=== PATIENT | female | born 2000 | race Caucasian/White ===

== ENCOUNTER 2018-09-23 21:27 | Emergency (ER) | payer MEDICAID, SELFPAY ==
[2018-09-23 21:27] VITALS: BP 129/98; PULSE 90; RESP 17; TEMP 36.9; O2SAT 97; BMI 35.7
--- NOTE | 2018-09-23 22:55 | RAD_ITS ---
STUDY: X-RAY - LEFT FOOT CLINICAL: Female, 18 years old. Chronic pain left foot. No known injury TECHNIQUE: 3 view(s) of the foot. COMPARISON: None. FINDINGS: Normal talus, calcaneus, and tarsal bones. Normal visualized subtalar, talonavicular, calcaneocuboid, tarsal and tarsometatarsal articulations. Normal metatarsi. Normal metatarsophalangeal joint of the great toe. Normal tibial and fibular sesamoid bones. Normal interphalangeal joint of the great toe. Normal phalanges of the great toe. Normal second through fifth metatarsophalangeal joints. 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 The soft tissue structures are unremarkable. RAD/Foot min 3 Views IMPRESSION: No demonstrated acute osseous changes. Electronically Signed: Fred Paredes MD at 23:34 EDT Tel , Service support ,
--- NOTE | 2018-09-23 23:04 | ED.VISSUMM ---
- ER Visit Summary Date of Service: 09/23/18 Chief Complaint: Left foot pain History of Present Illness: The patient is a 18 F presenting with left foot pain. Patient states this started on Monday. Family states that it has been intermittent for several years. Patient states when she was in 6th grade she fractured her foot. She has intermittent flares of pain in her left foot. States she twisted it a few months ago and it flared up. She states on Monday she started to have pain again. She does not recall a specific injury. She has been taking Motrin at home as well as using ice and elevation. She denies chest pain or shortness of breath. She denies other complaints. Physical Examination: Vitals are stable. Patient is afebrile. Alert no acute distress. HEENT exam is unremarkable. Neck is supple. Lungs are clear and equal bilaterally. Heart is regular rate and rhythm. Extremities mild diffuse left midfoot tenderness. No erythema or warmth. Normal pulse. Mild left calf tenderness Skin is warm and dry. Remainder of exam is unremarkable. Emergency Department Course and Treatment: Left foot x-ray shows no demonstrated acute osseous changes. Advised to ice and elevate. Advised to use NSAIDs for pain. Venous Doppler was ordered for tomorrow. Advised to follow-up with podiatry. Advised return to ED if worsening complaints. Disposition: Discharge home Impression: Left foot pain This note was generated with [employer] dictation software. It may contain incorrect words, spelling, and punctuation that were not noted in review of the chart prior to signing ED Disposition - Plan for ED Patient: Referrals: Pamela Rajput MD [Primary Care Provider] -
--- NOTE | 2018-09-23 23:48 | ED.DEP ---
ED Disposition - Plan for ED Patient: Instructions: ED Sprain Foot Prescriptions: Naproxen [Naprosyn] 500 mg PO BID PRN #20 tablet Referrals: Pamela Rajput MD [Primary Care Provider] - Sepideh Jarrell DPM [STAFF PHYSICIAN] -
== END 2018-09-24 | disposition home or self-care (01) ==
PROVIDERS: Emergency Provider Emergency Medicine; Family Provider Pediatrics; PCP Pediatrics
DX: M79.672 Pain in left foot (principal); F32.9 Major depressive disorder, single episode, unspecified; Z79.899 Other long term (current) drug therapy
CPT/HCPCS: 73630; 99283

== ENCOUNTER → 2018-09-24 10:54 | Outpatient (CLI) | payer MEDICAID, SELFPAY ==
[2018-09-23 21:27] VITALS: BMI 35.7
--- NOTE | 2018-09-24 11:00 | VDLE_ITS ---
Reason For Study: LLE pain RIGHT LEFT CFV is compressible, spontaneous, phasic, GSV is normal. competent and demonstrates normal CFV is compressible, spontaneous, phasic, augmentation. competent, and demonstrates normal Procedure augmentation. Exam performed in department. FV is compressible, spontaneous, phasic, The study was technically difficult. competent and demonstrates normal A preliminary report was called and/or faxed augmentation. to ED & Dr. Lev Rajput. POP V is compressible, spontaneous, phasic, competent and demonstrates normal augmentation. T/P Trunk is compressible. PTV is compressible. LT PerV is compressible. Interpretation Summary Deep veins of the left lower extremity are patent and compressible segmentally. There is no evidence of left lower extremity deep vein thrombosis. Valvular competence appears intact within the proximal deep venous system on the left . The left greater saphenous vein appears patent and compressible segmentally. Ordering Physician: Ariana Acuna Referring Physician: Pamela Rajput Performed By: Rosey Guerra, RDCS, RVT
== END ==
PROVIDERS: Family Provider Pediatrics; PCP Pediatrics; Referring Provider Emergency Medicine; Visit Provider Emergency Medicine
DX: M79.605 Pain in left leg (principal)
CPT/HCPCS: 93971

== ENCOUNTER → 2019-10-02 | Outpatient (CLI) | payer OTHER, SELFPAY ==
[2019-10-02 15:46] LABS: Hematocrit 40.8 % (37-47); Hemoglobin 13.6 g/dL (12.0-15.0); Mean Corp Hgb Conc 33.3 g/dL (32-36); Mean Corpuscular Hgb 27.1 pg (27.0-32.0); Mean Corpuscular Volume 81.3 fL (81-99); Mean Platelet Vol. 11.4 fl (6.2-12.0); Platelet Count 278 K/mm3 (150-450); RBC Distribution Width CV 13.6 % (11.6-14.6); RBC Distribution Width SD 39.8 fl (35.1-43.9); Red Blood Count 5.02 M/mm3 (4.2-5.4); White Blood Count 8.6 K/mm3 (4.4-11.0)
[2019-10-02 16:13] LABS: Free T3 3.6 pg/mL (2.18-3.98); T4 Free Direct 1.16 ng/dL (0.76-1.46); Thyroid Stim Hormone (TSH) 1.59 uIU/mL (0.358-3.74)
== END | disposition home or self-care (01) ==
PROVIDERS: PCP Pediatrics; Visit Provider Obstetrics & Gynecology
DX: Z12.4 Encounter for screening for malignant neoplasm of cervix (principal); N92.1 Excessive and frequent menstruation with irregular cycle; Z11.3 Encounter for screening for infections with a predominantly sexual mode of transmission
CPT/HCPCS: 36415; 84403; 84439; 84443; 84481; 85027

== ENCOUNTER 2019-11-28 23:33 | Emergency (ER) | payer OTHER, SELFPAY ==
[2019-11-28 23:34] VITALS: BP 130/70; PULSE 81; RESP 16; TEMP 36.5; O2SAT 98; BMI 32.8
--- NOTE | 2019-11-29 00:05 | ED.VIS.GEN ---
History of Present Illness Chief Complaint: Vag Bleeding Informant: Patient Onset: Weeks Context: Gradual Onset Timing: Intermittent Narrative: Patient is a 19-year-old female with history of irregular and heavy periods presenting with 1 month of irregular and heavy vaginal bleeding. Patient states she is been bleeding for the past 4 weeks very badly. Last week she went to [facility] where she had blood work and a pelvic exam. She is to follow-up with her [employer]. Patient's been on control as well as 600 mg ibuprofen regularly. Today she actually had a decrease in her bleeding and then this afternoon passed a couple of clots that she says were large in the size of quarters. She had associated lower abdominal discomfort with this. Patient states now it hurts when she passes clots. She thought the bleeding was finally going to stop but it did not today. She is very frustrated with her situation so she decided come to the emergency room to be evaluated further. Patient states she did have lightheadedness a few days ago and had some associated nausea. She also having fatigue. She does not wear pads because she does not feel that she can move around effectively when she has pads on so she is wearing tampons. States she will go through 8-10 tampons a day. 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 Past Medical History - Allergies and Home Meds Allergies/Adverse Reactions: Allergies cefixime [From Suprax] Allergy (Verified 11/28/19 23:37) Rash Primary Care Physician: Pamela Rajput MD [Primary Care Provider] - Past Medical History: None Surgical History: no surgical history Smoking Status: Unknown if ever smoked Review of Systems General: Denies: Chills, Fever, Sweats Eyes: Denies: Visual changes - bilaterally, Diplopia ENT: Denies: Rhinorrhea, Sore throat Cardiovascular: Denies: Chest pain, Palpitations Respiratory: Denies: Dyspnea, Cough, Dyspnea on exertion Gastrointestinal: Reports: Abdominal pain. Denies: Nausea, Vomiting, Diarrhea, Melena, Hematochezia Genitourinary: Reports: Dysuria, - - vaginal bleeding. Denies: Hematuria, Frequency Musculoskeletal: Denies: Back pain, Extremity Pain Skin: Denies: Rash, Wounds Neurological: Denies: Headache, Weakness, Numbness Physical Exam Vital Signs/Narrative: Vital Signs Temp Pulse Resp BP Pulse Ox 11/28/19 23:34 97.7 F L 81 16 130/70 H 98 Inital Vital Signs reviewed: Yes General: Well nourished, Well developed, Obese, No Acute Distress Head: Normocephalic, Atraumatic Eyes: Perrl, EOMI ENT: Moist mucous membranes, No rhinorrhea Neck: Supple, Nontender Cardiovascular: Regular rate, Regular rhythm, No murmurs Respiratory: No distress, CTA bilaterally, Chest nontender Abdomen: Soft, Nontender, Nondistended, Normal bowel sounds. Negative for: Tender, Guarding, Rebound tenderness : - - defereed per patient preference Back: Nontender, Normal Inspection. Negative for: CVA tenderness Extremities: Nontender, No edema Skin: Normal color, No rash Neurological: Alert, Oriented x3, Cranial nerves II-XII grossly intact, Normal Strength, Normal Sensation Psychological: Normal affect, Normal Mood Diagnostic/Tx/Re-eval Laboratory Data 11/29/19 11/29/19 11/29/19 00:10 00:10 00:44 WBC 10.7 RBC 4.47 Hgb 12.3 Hct 37.0 MCV 82.8 MCH 27.5 MCHC 33.2 RDW Std Deviation 39.8 RDW Coeff of [place] 13.2 Plt Count 284 MPV 11.0 Immature Gran % (Auto) 0.500 Neut % (Auto) 54.5 Lymph % (Auto) 35.4 [place] % (Auto) 6.3 Eos % (Auto) 2.6 Baso % (Auto) 0.7 Absolute Neuts (auto) 5.9 Absolute Lymphs (auto) 3.79 Nucleated RBC % 0 Sodium Potassium Chloride Carbon Dioxide Anion Gap BUN Creatinine Estim Creat Clear Calc Est GFR (MDRD) Af Amer Est GFR (MDRD) Non-Af BUN/Creatinine Ratio Glucose Calcium Urine Color Yellow Urine Clarity Clear Urine pH 6.0 Ur Specific [place] 1.020 Urine Protein 30 H Urine Glucose (UA) Normal Urine Ketones Negative Urine Occult Blood 250 H Urine Nitrite Negative Urine Bilirubin Negative Urine Urobilinogen Normal Ur Leukocyte Esterase 25 H Urine RBC 0-5 SEEN Urine WBC 0-5 SEEN Ur Squamous Epith Cells 0-5 SEEN Urine Bacteria 0 SEEN Urine Mucus 0 SEEN Urine Test Negative 11/29/19 00:44 WBC RBC Hgb Hct MCV MCH MCHC RDW Std Deviation RDW Coeff of [place] Plt Count MPV Immature Gran % (Auto) Neut % (Auto) Lymph % (Auto) [place] % (Auto) Eos % (Auto) Baso % (Auto) Absolute Neuts (auto) Absolute Lymphs (auto) Nucleated RBC % Sodium 141 Potassium 3.6 Chloride 109 H Carbon Dioxide 28.0 Anion Gap 4 L BUN 12 Creatinine 0.65 Estim Creat Clear Calc 113.25 Est GFR (MDRD) Af Amer 148 Est GFR (MDRD) Non-Af 122 BUN/Creatinine Ratio 18.5 Glucose 102 Calcium 8.7 Urine Color Urine Clarity Urine pH Ur Specific [place] Urine Protein Urine Glucose (UA) Urine Ketones Urine Occult Blood Urine Nitrite Urine Bilirubin Urine Urobilinogen Ur Leukocyte Esterase Urine RBC Urine WBC Ur Squamous Epith Cells Urine Bacteria Urine Mucus Urine Test - Medical Decision Making Patient is evaluated for continued episodes of heavy vaginal bleeding and pelvic discomfort. She appears nontoxic and in no acute distress. She not having any significant symptoms at this time but she is distressed because the symptoms are affecting her work. She has an ultrasound scheduled for Monday, 3 days from now. Patient well-appearing with normal vital signs. Her H&H is normal. I am not concerned for an acute anemia. She not lightheaded or having any other signs of acute blood loss anemia. Patient declined pelvic exam states she does have one a week ago at [place] emergency room. Her abdomen is soft and nontender. I do not think she requires an emergent ultrasound this time. Her presentation is not consistent with acute ovarian torsion and her urine is negative so I do not suspect an ectopic . I discussed the case with pens and pencils dipper has been seeing her, Ananya, who is agreeable this plan. She does not have any further recommendations at this time. ED Disposition - Plan for ED Patient: Disposition: Home or Assisted Living Diagnosis: Dysfunctional uterine bleeding Instructions: ED Bleed Irregular Vaginal Referrals: Pamela Rajput MD [Primary Care Provider] - Additional Instructions: Your hemoglobin or red blood cells are stable. At this time I do not think you require an emergent ultrasound or blood transfusion. Please follow-up with your scheduled outpatient ultrasound on Monday. Please call your [employer]IL[employer] if you have further symptoms. Return the emergency room if you have worsening lightheadedness or bleeding.
[2019-11-29 00:15] LABS: Bacteria 0 SEEN /hpf (None Seen); Color, Urine Yellow (Yellow); Glucose, Dipstick Normal (Normal); Ketone-Dipstick Negative (Negative); Leukocyte Esterase-Dipstick 25 /ul (Negative); Mucous, Urine 0 SEEN /hpf (<or=2+); Nitrite-Dipstick Negative (Negative); Occult Blood-Urine 250 /ul (Negative); Protein-Dipstick 30 mg/dl (Negative); Urine Bilirubin Dipstick Negative (Negative); Urine Clarity Clear (Clear); Urine Urobilinogen Normal (Normal)
[2019-11-29 00:57] LABS: Internal QC Validated? YES +Cl - CLEAR BKGD; Pregnancy, Urine Negative Negative
[2019-11-29 00:58] LABS: Absolute Lymphocyte Count 3.79 X10^3/uL (0.83-4.51); Absolute Neutrophil Count 5.9 X10^3/uL (2.0-7.7); Basophil# 0.07 X10^3/uL; Basophil% 0.7 % (0-1); Eosinophil# 0.28 X10^3/uL; Eosinophils% 2.6 % (0-5); Hemoglobin 12.3 g/dL (12.0-15.0); Lymphocyte # 3.79 X10^3/ul (4.0); Lymphocyte % 35.4 % (19-41); Mean Corp Hgb Conc 33.2 g/dL (32-36); Mean Corpuscular Hgb 27.5 pg (27.0-32.0); Mean Corpuscular Volume 82.8 fL (81-99); Monocyte# 0.68 X10^3/uL; Monocyte% 6.3 % (0-10); NRBC Flagged by Analyzer 0 % (0-5); Neutrophil # 5.85 X10^3/uL (2.7-7.7); Neutrophil % 54.5 % (47-70); Platelet Count 284 K/mm3 (150-450); RBC Distribution Width CV 13.2 % (11.6-14.6); RBC Distribution Width SD 39.8 fl (35.1-43.9); Red Blood Count 4.47 M/mm3 (4.2-5.4); White Blood Count 10.7 K/mm3 (4.4-11.0)
[2019-11-29 01:15] LABS: Anion Gap 4 (5-15); BUN 12 mg/dL (7-18); BUN/Creat Ratio 18.5 RATIO (10-20); Calcium,Total 8.7 mg/dL (8.5-10.1); Chloride 109 mmol/L (98-107); Creatinine, Serum 0.65 mg/dL (0.55-1.02); EST Glomerular Filtration Rate 122 mL/min (>60); Est Glom Filt Rate - Afr Amer 148 mL/min (>60); Estimated Creatinine Clearance 113.25 ml/min; Glucose 102 mg/dL (74-106); Potassium 3.6 mmol/L (3.5-5.1); Sodium Level 141 mmol/L (136-145)
[2019-11-29 01:25] LABS: Red Blood Cells-Urine 0-5 SEEN /hpf (0-5); Squamous Epithelial Cells - UA 0-5 SEEN /hpf (5-10); White Blood Cells 0-5 SEEN /hpf (0-5)
[2019-11-29 02:44] VITALS: BP 130/78; PULSE 78; RESP 18; O2SAT 96
== END 2019-11-29 02:44 | disposition home or self-care (01) ==
PROVIDERS: Emergency Provider Emergency Medicine; PCP Pediatrics
DX: N93.8 Other specified abnormal uterine and vaginal bleeding (principal); R10.9 Unspecified abdominal pain; E66.9 Obesity, unspecified; Z79.3 Long term (current) use of hormonal contraceptives; Z79.899 Other long term (current) drug therapy
CPT/HCPCS: 36415; 80048; 81001; 81025; 85025; 99282

== ENCOUNTER → 2020-01-28 16:25 | Outpatient (CLI) | payer OTHER, SELFPAY ==
[2020-01-28 17:41] LABS: Absolute Lymphocyte Count 3.32 X10^3/uL (0.83-4.51); Basophil# 0.06 X10^3/uL; Basophil% 0.7 % (0-1); Eosinophil# 0.23 X10^3/uL; Eosinophils% 2.8 % (0-5); Hematocrit 40.5 % (37-47); Hemoglobin 13.3 g/dL (12.0-15.0); Lymphocyte # 3.32 X10^3/ul (4.0); Lymphocyte % 40.6 % (19-41); Mean Corp Hgb Conc 32.8 g/dL (32-36); Mean Corpuscular Hgb 26.6 pg (27.0-32.0); Mean Platelet Vol. 11.9 fl (6.2-12.0); Monocyte# 0.59 X10^3/uL; Monocyte% 7.2 % (0-10); NRBC Flagged by Analyzer 0 % (0-5); Neutrophil # 3.96 X10^3/uL (2.7-7.7); Neutrophil % 48.5 % (47-70); Platelet Count 301 K/mm3 (150-450); RBC Distribution Width CV 12.8 % (11.6-14.6); RBC Distribution Width SD 38.1 fl (35.1-43.9); White Blood Count 8.2 K/mm3 (4.4-11.0)
[2020-01-28 17:59] LABS: Erythrocyte Sedimentation Rate 8 mm/hr (0-20)
[2020-01-28 18:11] LABS: Vitamin D,25 Hydroxy 24.9 ng/mL
[2020-01-28 19:21] LABS: ALB/GLOB Ratio 0.8 RATIO (0.9-2.4); AST(SGOT) 10 U/L (15-37); Alanine Aminotransfer ALT/SGPT 19 U/L (13-56); Albumin, Serum 3.2 g/dL (3.2-5.0); Alkaline Phosphatase 46 U/L (45-117); Anion Gap 8 (5-15); BUN 14 mg/dL (7-18); BUN/Creat Ratio 22.2 RATIO (10-20); Calcium,Total 8.6 mg/dL (8.5-10.1); Chloride 106 mmol/L (98-107); Creatinine, Serum 0.63 mg/dL (0.55-1.02); EST Glomerular Filtration Rate 126 mL/min (>60); Est Glom Filt Rate - Afr Amer 152 mL/min (>60); Estradiol 19.7 pg/mL; Free T3 2.7 pg/mL (2.18-3.98); Globulin 4.1 g/dL (2.2-4.2); Glucose 94 mg/dL (74-106); Luteinizing Hormone 0.3 mIU/mL; Potassium 3.8 mmol/L (3.5-5.1); Protein, Total 7.3 g/dL (6.4-8.2); Sodium Level 138 mmol/L (136-145); Thyroid Stim Hormone (TSH) 1.53 uIU/mL (0.358-3.74)
== END ==
PROVIDERS: PCP Family Medicine; Referring Provider Family Medicine; Visit Provider Family Medicine
DX: R10.9 Unspecified abdominal pain (principal); E04.1 Nontoxic single thyroid nodule; N94.6 Dysmenorrhea, unspecified; N92.6 Irregular menstruation, unspecified; F32.9 Major depressive disorder, single episode, unspecified
CPT/HCPCS: 36415; 80053; 82306; 82627; 82670; 83001; 83002; 84403; 84439; 84443; 84481; 85025; 85652; 86677; 87086; 87088; 82626

== ENCOUNTER → 2020-03-23 14:02 | Outpatient (CLI) | payer OTHER, SELFPAY ==
--- NOTE | 2020-03-23 14:05 | US_ITS ---
STUDY: ULTRASOUND OF THE FEMALE PELVIS - COMPLETE REASON FOR EXAM: Female, 19 years old. pain LMP: 03/13/2020 TECHNIQUE: Transabdominal TECHNICAL QUALITY: Adequate. COMPARISON: 12/10/2012 FINDINGS: The uterus is anteverted and is in a midline position. The uterus measures 7.5 x 5.2 x 4.2 cm. Normal uterine cervix. The endometrium measures 5 mm in thickness, and is hyperechoic. There is no demonstrated endometrial mass. There is no demonstrated myometrial mass. I.U.D. - The patient does not have an I.U.D. The right ovary is visualized. The right ovary measures 2.3 x 1.4 x 1.9 cm. There is no right ovarian cyst or ovarian mass. There is no visualized right adnexal mass or complex lesion. There is normal arterial and normal venous vascularity. The left ovary is visualized. The left ovary measures 2.1 x 2.8 x 1.6 cm. There is no left ovarian cyst or ovarian mass. There is no visualized left adnexal mass or complex lesion. There is normal arterial and normal venous vascularity. There is no fluid in the cul-de-sac. The pre void volume of the bladder was 64 ml. The post void volume of the bladder was ml. Polycystic ovary disease: No. US/Pelvic (Non ) IMPRESSION: Normal female pelvis. Electronically Signed: Grayson Joseph MD at 16:00 EST Tel , Service support ,
== END ==
PROVIDERS: PCP Family Medicine; Referring Provider Family Medicine; Visit Provider Family Medicine
DX: R10.9 Unspecified abdominal pain (principal)
CPT/HCPCS: 76856

== ENCOUNTER → 2020-04-22 | Outpatient (CLI) | payer OTHER, SELFPAY | END | disposition home or self-care (01) | LOC: LABSPEC 15:06 | PROVIDERS: PCP Family Medicine; Referring Provider Family Medicine; Visit Provider Family Medicine | DX: Z20.822 Contact with and (suspected) exposure to COVID-19 (principal) | CPT/HCPCS: 87635; U0005; U0003 ==

== ENCOUNTER → 2020-08-25 14:22 | Outpatient (CLI) | payer OTHER, SELFPAY ==
[2020-08-13 13:30] VITALS: BMI 40.8
--- NOTE | 2020-08-25 14:24 | US_ITS ---
STUDY: ULTRASOUND OF THE FEMALE PELVIS - COMPLETE REASON FOR EXAM: Female, 20 years old. IUD replacement. Pelvic pain. TECHNIQUE: Transabdominal and Transvaginal TECHNICAL QUALITY: Adequate. COMPARISON: Comparison is made with prior study dated 03/23/2020. FINDINGS: The uterus is anteverted and is in a midline position. The uterus measures 7 cm x 5.6 cm x 4.5 cm. Normal uterine cervix. The endometrium measures 10 mm in thickness, and is hyperechoic. There is no demonstrated endometrial mass. There is no demonstrated myometrial mass. I.U.D. - The patient does have an I.U.D. The right ovary is visualized. The right ovary measures 1.7 cm x 1.5 cm by 1.4 cm. There is no right ovarian cyst or ovarian mass. There is no visualized right adnexal mass or complex lesion. There is normal arterial and normal venous vascularity. The left ovary is visualized. The left ovary measures 1.9 cm x 1.7 cm x 1.2 cm. There is no left ovarian cyst or ovarian mass. There is no visualized left adnexal mass or complex lesion. There is normal arterial and normal venous vascularity. There is no fluid in the cul-de-sac. The pre void volume of the bladder was 389 ml. Polycystic ovary disease: No. US/Pelvic (Non ) IMPRESSION: IUD is seen within the endometrium. Electronically Signed: Nacho Erickson MD at 13:19 EDT , Service support ,
--- NOTE | 2020-08-25 14:24 | US_ITS ---
STUDY: ULTRASOUND OF THE FEMALE PELVIS - COMPLETE REASON FOR EXAM: Female, 20 years old. IUD replacement. Pelvic pain. TECHNIQUE: Transabdominal and Transvaginal TECHNICAL QUALITY: Adequate. COMPARISON: Comparison is made with prior study dated 03/23/2020. FINDINGS: The uterus is anteverted and is in a midline position. The uterus measures 7 cm x 5.6 cm x 4.5 cm. Normal uterine cervix. The endometrium measures 10 mm in thickness, and is hyperechoic. There is no demonstrated endometrial mass. There is no demonstrated myometrial mass. I.U.D. - The patient does have an I.U.D. The right ovary is visualized. The right ovary measures 1.7 cm x 1.5 cm by 1.4 cm. There is no right ovarian cyst or ovarian mass. There is no visualized right adnexal mass or complex lesion. There is normal arterial and normal venous vascularity. The left ovary is visualized. The left ovary measures 1.9 cm x 1.7 cm x 1.2 cm. There is no left ovarian cyst or ovarian mass. There is no visualized left adnexal mass or complex lesion. There is normal arterial and normal venous vascularity. There is no fluid in the cul-de-sac. The pre void volume of the bladder was 389 ml. Polycystic ovary disease: No. US/Transvaginal Non- IMPRESSION: IUD is seen within the endometrium. Electronically Signed: Nacho Erickson MD at 13:19 EDT , Service support ,
== END ==
PROVIDERS: PCP Family Medicine; Referring Provider Obstetrics & Gynecology; Visit Provider Obstetrics & Gynecology
DX: R10.2 Pelvic and perineal pain (principal)
CPT/HCPCS: 76830; 76856; 93976

== ENCOUNTER → 2020-10-07 | Outpatient (CLI) | payer OTHER, SELFPAY ==
[2020-08-13 13:30] VITALS: BMI 40.8
== END | disposition home or self-care (01) ==
LOC: LABSPEC 13:09
PROVIDERS: PCP Family Medicine; Visit Provider Family Medicine
DX: J01.90 Acute sinusitis, unspecified (principal)
CPT/HCPCS: 87635; U0005; U0003

== ENCOUNTER → 2020-10-14 | Outpatient (CLI) | payer OTHER, SELFPAY ==
[2020-10-14 14:44] VITALS: BMI 40.8
== END | disposition home or self-care (01) ==
PROVIDERS: PCP Family Medicine; Referring Provider Nurse Practitioner Women's Health; Visit Provider Nurse Practitioner Women's Health
DX: N76.0 Acute vaginitis (principal)
CPT/HCPCS: 87070; 87205

== ENCOUNTER → 2021-04-01 10:15 | Outpatient (CLI) | payer BC, SELFPAY ==
[2021-04-01 11:40] LABS: HIV - WCH Non-Reactive (Nonreactive); Hepatitis C Antibody Non-Reactive (Nonreactive); Syphilis Antibodies Non-reactive
[2021-04-01 19:17] LABS: Thyroid Stim Hormone (TSH) 0.82 uIU/mL (0.358-3.74)
[2021-04-02 14:13] LABS: HSV 2 IgG 1.26 index (0.00-0.90)
[2021-04-03 02:07] LABS: Chlamydia By Nucleic Acid AMP Negative (Negative)
[2021-04-03 07:45] LABS: Gonococcus By Nucleic Acid AMP Negative (Negative)
[2021-04-06 13:34] LABS: HPV Reflexed? NOT INDICATED
== END ==
PROVIDERS: PCP Family Medicine; Referring Provider Nurse Practitioner Women's Health; Visit Provider Nurse Practitioner Women's Health
DX: Z12.4 Encounter for screening for malignant neoplasm of cervix (principal); Z20.2 Contact with and (suspected) exposure to infections with a predominantly sexual mode of transmission; Z13.29 Encounter for screening for other suspected endocrine disorder
CPT/HCPCS: 36415; 84443; 86695; 86696; 86703; 86780; 86803; 87491; 87591; 88175; G0145

== ENCOUNTER → 2021-04-13 | Outpatient (CLI) | payer BC, SELFPAY | END | disposition home or self-care (01) | LOC: LABSPEC 14:51 | PROVIDERS: PCP Family Medicine; Visit Provider Nurse Practitioner Family | DX: U07.1 COVID-19 (principal) | CPT/HCPCS: 87633; 87635; U0005; U0003 ==

== ENCOUNTER 2021-05-07 16:00 | Outpatient (CLI) | payer BC, SELFPAY ==
--- NOTE | 2021-05-07 16:05 | RAD_ITS ---
INDICATION: POST COVID SYNDROME EXAMINATION/TECHNIQUE: X-RAY - XR Chest 2 Views COMPARISON: None. FINDINGS: LINES/DEVICES: None. LUNGS: Symmetric normal lung volumes. No airspace opacity or abnormal interstitial pattern. No nodule or mass. No pleural effusion or pneumothorax. MEDIASTINUM AND CARDIOVASCULAR STRUCTURES: Normal size and contour of the cardiomediastinal silhouette. No evidence of pulmonary vascular congestion. BONES AND SOFT TISSUES: No abnormality within limits of the exam. RAD/Chest PA and Lateral IMPRESSION: 1. No radiographic evidence of acute cardiopulmonary disease. Electronically Signed: Silver William DO at 21:41 EST Tel , Service support ,
== END 2021-05-07 23:59 | disposition short-term general hospital (02) ==
LOC: MTRAD 16:04
PROVIDERS: PCP Family Medicine; Referring Provider Registered Nurse; Visit Provider Registered Nurse
DX: U09.9 Post COVID-19 condition, unspecified (principal)
CPT/HCPCS: 71046

== ENCOUNTER 2021-06-14 15:35 | Outpatient (CLI) | payer BC, SELFPAY ==
--- NOTE | 2021-06-14 15:36 | RAD_ITS ---
History: NECK PAIN Cervical spine 7 views including flexion and extension lateral views: Findings: No fracture or subluxation. Congenital fusion of C2 and C3. Normal range of motion. Disc spaces and facet joints appear normal. Precervical soft tissues are normal. IMPRESSION: Intact cervical spine. at 1603 Reported and signed by: Ata Shaikh MD Electronically Signed: Ata Shaikh MD at 16:02 EST , RAD/Cerv Spine Obl/Flex/Ext Comp
== END 2021-06-14 23:59 | disposition home or self-care (01) ==
LOC: MTLAB 15:35
PROVIDERS: PCP Family Medicine; Referring Provider Nurse Practitioner Family; Visit Provider Nurse Practitioner Family
DX: M54.2 Cervicalgia (principal)
CPT/HCPCS: 72052

== ENCOUNTER 2021-08-02 14:02 | Outpatient (CLI) | payer BC, SELFPAY ==
--- NOTE | 2021-08-02 14:09 | RAD_ITS ---
EXAM: XR CHEST, 2 VIEWS : 1998 CLINICAL INDICATION: COUGH TECHNIQUE: Frontal and lateral views of the chest. This report was created using [employer] report generation technology. COMPARISON: None. FINDINGS: LUNGS AND PLEURAL SPACES: Unremarkable. No consolidation or edema. No pneumothorax. No effusion. HEART: Unremarkable. Cardiac silhouette not enlarged. MEDIASTINUM: Central airways and mediastinal contour are unremarkable. BONES/JOINTS: Unremarkable. SOFT TISSUES: Unremarkable. RAD/Chest PA and Lateral IMPRESSION: No radiographic evidence of acute cardiopulmonary disease. at 1647 Reported and signed by: Kendall Seth MD Electronically Signed: Kendall Seth MD at 16:46 EDT ,
--- NOTE | 2021-08-02 14:09 | RAD_ITS ---
EXAM: XR ABDOMEN, 2 VIEWS : 1998 CLINICAL INDICATION: PAIN TECHNIQUE: Frontal view of the abdomen/pelvis with upright view of the abdomen. This report was created using [employer] report generation technology. COMPARISON: None. FINDINGS: LOWER THORAX: No acute pathology. INTRAPERITONEAL SPACE: No free air. GASTROINTESTINAL TRACT: Unremarkable. Non-obstructive. No bowel or stomach distention. ORGANS: Unremarkable as visualized. No organomegaly. No abnormal calcifications. BONES/JOINTS: No acute pathology. SOFT TISSUES: No acute pathology. RAD/Abd Inc Decub and/or Erect IMPRESSION: Unremarkable abdominal series. at 1631 Reported and signed by: Kendall Seth MD Electronically Signed: Kendall Seth MD at 16:30 EDT ,
[2021-08-02 14:23] LABS: Mucous, Urine 0 SEEN /hpf (<or=2+)
[2021-08-02 17:34] LABS: Color, Urine Amber (Yellow); Glucose, Dipstick Normal (Normal); Ketone-Dipstick Negative (Negative); Leukocyte Esterase-Dipstick 100 /ul (Negative); Nitrite-Dipstick Negative (Negative); Occult Blood-Urine 150 /ul (Negative); Protein-Dipstick 15 mg/dl (Negative); Urine Clarity Sl. Cloudy (Clear); Urine Urobilinogen 4 mg/dl (Normal)
[2021-08-02 17:38] LABS: Urine Bilirubin Dipstick 3 mg/dL (Negative)
[2021-08-02 17:39] LABS: Absolute Lymphocyte Count 3.79 X10^3/uL (0.83-4.51); Absolute Neutrophil Count 1.9 X10^3/uL (2.0-7.7); Basophil# 0.07 X10^3/uL; Basophil% 1.1 % (0-1); Eosinophil# 0.02 X10^3/uL; Eosinophils% 0.3 % (0-5); Hematocrit 37.1 % (37-47); Hemoglobin 12.6 g/dL (12.0-15.0); Lymphocyte # 3.79 X10^3/ul (0.83-4.51); Lymphocyte % 60.8 % (19-41); Mean Corpuscular Hgb 27.9 pg (27.0-32.0); Mean Corpuscular Volume 82.3 fL (81-99); Mean Platelet Vol. 12.4 fl (6.2-12.0); Monocyte# 0.35 X10^3/uL; Monocyte% 5.6 % (0-10); NRBC Flagged by Analyzer 0 % (0-5); Neutrophil # 1.94 X10^3/uL (2.7-7.7); Neutrophil % 31.2 % (47-70); POSITIVE MORPHOLOGY YES; Platelet Count 167 K/mm3 (150-450); RBC Distribution Width CV 14.3 % (11.6-14.6); RBC Distribution Width SD 41.9 fl (35.1-43.9); Red Blood Count 4.51 M/mm3 (4.2-5.4); White Blood Count 6.2 K/mm3 (4.4-11.0)
[2021-08-02 17:40] LABS: Differential Indicated SCAN CRITERIA MET
[2021-08-02 17:46] LABS: Bacteria 1+ /hpf (None Seen); Squamous Epithelial Cells - UA 5-10 SEEN /hpf (5-10); White Blood Cells 0-5 SEEN /hpf (0-5)
[2021-08-02 17:47] LABS: Red Blood Cells-Urine 0-5 SEEN /hpf (0-5)
[2021-08-02 18:02] LABS: ALB/GLOB Ratio 0.8 RATIO (0.9-2.4); AST(SGOT) 105 U/L (15-37); Alanine Aminotransfer ALT/SGPT 157 U/L (13-56); Albumin, Serum 3.3 g/dL (3.2-5.0); Alkaline Phosphatase 151 U/L (45-117); Anion Gap 9 (5-15); BUN 6 mg/dL (7-18); BUN/Creat Ratio 8.5 RATIO (10-20); Calcium,Total 8.7 mg/dL (8.5-10.1); Chloride 104 mmol/L (98-107); EST Glomerular Filtration Rate 110 mL/min (>60); Est Glom Filt Rate - Afr Amer 133 mL/min (>60); Glucose 80 mg/dL (74-106); Potassium 3.6 mmol/L (3.5-5.1); Protein, Total 7.3 g/dL (6.4-8.2); Sodium Level 137 mmol/L (136-145)
[2021-08-02 18:06] LABS: Differential Comment SCANNED; Erythrocyte Sedimentation Rate 18 mm/hr (0-30)
[2021-08-03 11:01] LABS: Amylase 60 U/L (25-115); Lipase 194 U/L (73-393)
== END 2021-08-02 23:59 | disposition home or self-care (01) ==
PROVIDERS: PCP Family Medicine; Referring Provider Family Medicine; Visit Provider Family Medicine
DX: R10.9 Unspecified abdominal pain (principal); R05.9 Cough, unspecified; M54.9 Dorsalgia, unspecified; Z20.822 Contact with and (suspected) exposure to COVID-19
CPT/HCPCS: 36415; 71046; 74019; 80053; 81001; 82150; 83690; 85025; 85652; 87086; 87088; 87635; U0003; U0005

== ENCOUNTER 2021-08-03 15:45 | Outpatient (CLI) | payer BC, SELFPAY ==
--- NOTE | 2021-08-03 15:50 | US_ITS ---
STUDY: ABDOMINAL ULTRASOUND - RIGHT UPPER QUADRANT REASON FOR VISIT: Female, 21 years old Right upper Quadrant pain, nausea TECHNIQUE: Ultrasound evaluation of the right upper quadrant was performed with real-time and static noel-scale imaging. TECHNICAL QUALITY: Adequate. COMPARISON: None. FINDINGS: Liver: The liver measures 19.1 cm. There is normal echogenicity of the liver. The bile ducts are within normal limits. There is hepatic color flow. The direction of portal flow is hepatopetal. There is no demonstrated mass lesion. Gallbladder: Normal distended gallbladder. The gallbladder wall measures 2 mm. There is a negative sonographic Clark''s sign. There is no pericholecystic fluid. There are no gallstones. Common Bile Duct (C.B.D.): The common bile duct measures 4 mm. Pancreas: Normal size of the head, body and tail of the pancreas. There is normal echogenicity of the pancreas. There is no demonstrated pancreatic mass or cyst. Right Kidney: Normal size of the right kidney. The right kidney measures 10.9 x 5.9 x 4.4 cm. Normal renal cortex. The right cortex measures 1.4 cm. There is no demonstrated renal mass or cyst. There is no right hydronephrosis. US/Abdomen Limited IMPRESSION: No suspicious sonographic findings Electronically Signed: Rafi Chávez MD at 16:47 EDT ,
[2021-08-03 17:13] LABS: Amylase 50 U/L (25-115); Lipase 146 U/L (73-393)
== END 2021-08-03 23:59 | disposition home or self-care (01) ==
PROVIDERS: PCP Family Medicine; Referring Provider Family Medicine; Visit Provider Family Medicine
DX: R10.11 Right upper quadrant pain (principal); B17.9 Acute viral hepatitis, unspecified
CPT/HCPCS: 36415; 76705; 82150; 83690

== ENCOUNTER 2021-08-04 13:03 | Outpatient (CLI) | payer BC, SELFPAY ==
[2021-08-04 13:15] LABS: Mucous, Urine 0 SEEN /hpf (<or=2+); Red Blood Cells-Urine 0 SEEN /hpf (0-5); Squamous Epithelial Cells - UA 0 SEEN /hpf (5-10); White Blood Cells 0 SEEN /hpf (0-5)
[2021-08-04 15:18] LABS: Absolute Lymphocyte Count 3.58 X10^3/uL (0.83-4.51); Absolute Neutrophil Count 2.1 X10^3/uL (2.0-7.7); Basophil# 0.06 X10^3/uL; Eosinophil# 0.04 X10^3/uL; Eosinophils% 0.6 % (0-5); Hemoglobin 13.1 g/dL (12.0-15.0); Lymphocyte # 3.58 X10^3/ul (0.83-4.51); Mean Corp Hgb Conc 34.5 g/dL (32-36); Mean Corpuscular Hgb 28.1 pg (27.0-32.0); Mean Corpuscular Volume 81.4 fL (81-99); Mean Platelet Vol. 11.8 fl (6.2-12.0); Monocyte# 0.32 X10^3/uL; Monocyte% 5.2 % (0-10); NRBC Flagged by Analyzer 0 % (0-5); Neutrophil # 2.13 X10^3/uL (2.7-7.7); Neutrophil % 34.6 % (47-70); POSITIVE MORPHOLOGY YES; Platelet Count 187 K/mm3 (150-450); RBC Distribution Width CV 14.3 % (11.6-14.6); RBC Distribution Width SD 41.9 fl (35.1-43.9); Red Blood Count 4.67 M/mm3 (4.2-5.4); White Blood Count 6.2 K/mm3 (4.4-11.0)
[2021-08-04 15:28] LABS: Color, Urine Yellow (Yellow); Differential Indicated SCAN CRITERIA MET; Glucose, Dipstick Normal (Normal); Ketone-Dipstick Negative (Negative); Leukocyte Esterase-Dipstick Negative /ul (Negative); Nitrite-Dipstick Negative (Negative); Occult Blood-Urine 50 /ul (Negative); Protein-Dipstick Negative (Negative); Urine Clarity Clear (Clear); Urine Urobilinogen 8 mg/dl (Normal)
[2021-08-04 15:53] LABS: ALB/GLOB Ratio 0.8 RATIO (0.9-2.4); AST(SGOT) 134 U/L (15-37); Alanine Aminotransfer ALT/SGPT 225 U/L (13-56); Albumin, Serum 3.1 g/dL (3.2-5.0); Alkaline Phosphatase 164 U/L (45-117); Anion Gap 8 (5-15); BUN 8 mg/dL (7-18); BUN/Creat Ratio 10.6 RATIO (10-20); Chloride 105 mmol/L (98-107); Creatinine, Serum 0.75 mg/dL (0.55-1.02); EST Glomerular Filtration Rate 101 mL/min (>60); Est Glom Filt Rate - Afr Amer 122 mL/min (>60); Ferritin 362 ng/mL (8-252); GGTP 283 U/L (5-55); Glucose 97 mg/dL (74-106); Iron 81 ug/dL (50-170); Potassium 3.6 mmol/L (3.5-5.1); Protein, Total 7.1 g/dL (6.4-8.2); Sodium Level 137 mmol/L (136-145)
[2021-08-04 16:24] LABS: Urine Bilirubin Dipstick 1 mg/dL (Negative)
[2021-08-04 16:27] LABS: Bacteria RARE /hpf (None Seen)
[2021-08-04 16:28] LABS: Atypical Lymphocyte 3+ %; Platelet Estimate ADEQUATE (ADEQ); Red Cell Morphology NORM C+C NORMAL (NORM C&C)
[2021-08-05 08:16] LABS: Hepatitis B Surface Antibody Reactive
[2021-08-05 13:27] LABS: Pathologist Review Reviewed
[2021-08-06 15:08] LABS: HEPATITIS B SURFACE AG Negative (Negative); Hepatitis A IgM Antibody Negative (Negative); Hepatitis B Core AB IgM Negative (Negative)
[2021-08-06 15:55] LABS: EBV Acute VCA IgM > 160.0 U/mL (0.0-35.9); EBV Early Antigen IgG 98.5 U/mL (0.0-8.9); EBV Nuclear Antigen IgG < 18.0 U/mL (0.0-17.9); Hep C Antibodies 0.2 s/co ratio (0.0-0.9); Hepatitis A AB, Total Positive (Negative)
== END 2021-08-04 23:59 | disposition home or self-care (01) ==
PROVIDERS: PCP Family Medicine; Referring Provider Family Medicine; Visit Provider Family Medicine
DX: R74.8 Abnormal levels of other serum enzymes (principal)
CPT/HCPCS: 80053; 80074; 81001; 82728; 82977; 83540; 85025; 86663; 86664; 86665; 86706; 86708

== ENCOUNTER 2021-08-05 13:05 | Emergency (ER) | payer BC, SELFPAY ==
[2021-08-05 13:08] VITALS: PULSE 125; RESP 18; TEMP 36.5; O2SAT 98; BMI 35.4
--- NOTE | 2021-08-05 13:17 | EDS_ITS ---
HPI History of Present Illness Chief Complaint: General Illness Informant: patient Narrative Narrative: Patient is a 21-year-old female presenting with worsening abdominal pain, nausea and vomiting. Started having symptoms 1 week ago. She states it started with not feeling right having a stomachache. Since not having worsening abdominal pain that in her epigastric and right side of her abdomen. She saw her primary care doctor on Monday of this week, 4 days ago. She had lab work done and an ultrasound which did show normal gallbladder and liver but transaminitis. She had more lab work done yesterday. Her primary care doctor recommend she get a CT but states if she was feeling worse she should come to the emergency room. She started having diarrhea yesterday has had 1 episode of nonbloody/nonblack diarrhea today. She said 4 episodes of vomiting today and states she can even keep down water which is why she ultimately came to the emergency room. She denies any urinary symptoms but notes her urine has been more dark than normal. She has any fever but has been having episodes of feeling hot and then chills. She denies any significant Tylenol use. Her only medications are her control and valacyclovir for herpes. She drinks alcohol occasionally. Denies any history of drug use. Denies any sick contacts. Denies any recent travel, camping or new exposures. No other complaints at this time. Chart view shows the patient does have a hepatitis panel pending as well as EBV test. She does have a transaminitis. PFSH PFS Home Medications cholecalciferol (vitamin D3) 50 mcg (2,000 unit) capsule 50 mcg PO DAILY 04/30/20 [History Last Taken Unknown] Saccharomyces boulardii 250 mg capsule 250 mg PO BID 10/14/20 [History Last Taken Unknown] famotidine 20 mg tablet 20 mg PO DAILY 11/11/20 [History Last Taken Unknown] fluticasone propionate 50 mcg/actuation nasal spray,suspension 1 spray INTRANASAL DAILY 11/11/20 [History Last Taken Unknown] desogestrel 0.15 mg-ethinyl estradiol 0.03 mg tablet 1 tab PO QDAY #84 tab 07/01/21 [Rx Last Taken Unknown] valacyclovir 500 mg tablet 500 mg PO QDAY #90 tab 07/01/21 [Rx Last Taken Unknown] ibuprofen 600 mg PO Q6H PRN PRN #20 tab 08/05/21 [Rx Last Taken Unknown] prochlorperazine maleate [Compazine] 10 mg PO TID PRN #20 tab 08/05/21 [Rx Last Taken Unknown] Allergy/AdvReac Type Severity Reaction Status Date / Time cefixime [From Suprax] Allergy Rash Verified 08/05/21 13:09 Family History Father Diabetes Grandmother Diabetes Surgical History History of surgery on arm Social History household members: friend(s) number of children: 0 current occupational status: employed current occupation: [employer], [employer] history of recent travel: No sexually active: Yes Smoking Status: Never smoker alcohol intake: current alcohol intake frequency: a few times a month substance use type: does not use what type of physical activity do you participate in: none seatbelt use: always do you feel safe at home: Yes ROS ROS ED Constitutional Constitutional ED: Reports chills; Denies fever(s) or sweats Eyes Eyes: Denies change in vision ENT ENT ED: Denies rhinorrhea or sore throat Cardiovascular Cardiovascular: Denies chest pain Respiratory/Chest Respiratory/Chest: Denies cough or dyspnea Gastrointestinal Gastrointestinal: Reports abdominal pain, diarrhea, nausea and vomiting Genitourinary Genitourinary ED: Denies dysuria or hematuria Musculoskeletal Musculoskeletal: Denies arthralgias or myalgias Integumentary Denies rash Neurologic Neurologic: Denies headache(s) or weakness EXAM Physical Exam Const Vital Signs: 08/05/21 13:08 08/05/21 13:17 08/05/21 15:54 Temperature 97.7 F L Temperature Source Temporal Pulse Rate 125 H Respiratory Rate 18 18 Respiratory Effort Normal Respiratory Pattern Normal Pulse Ox 98 99 Oxygen Delivery Method Room Air Room Air Positive well nourished and well developed General Appearance ED: well developed and NAD; Negative for pallor HEENT Reports dry mucous membranes Negative for trauma Mouth ED: Yes dry mucous membranes Mouth: dry mucous membranes Eyes PERRL and EOMs intact bilaterally General Eye ED: Negative for scleral icterus Neck no lymphadenopathy and supple Chest Wall inspection of chest normal Resp normal respiratory effort and clear to auscultation bilaterally Cardio regular rate, regular rhythm and no murmurs GI non-distended Palpation: soft and tender epigastric and RLQ; Negative for guarding Back/Spine no CVA tenderness Extremity normal to inspection General Extremety ED: Negative for edema or tenderness General Extremity: Negative for edema Neuro oriented x3 Sensorium / Orientation: alert Motor Exam: Negative for general weakness Psych mental status grossly normal Skin no rashes or lesions noted and no wounds General Skin Exam: Negative for jaundice or pallor MDM MDM MDM Narrative Medical decision making narrative: Patient evaluated for generalized malaise, vomiting, diarrhea and transaminitis. She has had an outpatient work-up which has show transaminitis but no cause. Hepatitis and EBV panel are pending. Patient is tachycardic upon arrival. She is given IV fluids. She does have elevated urine ketones consistent with dehydration. She is also given IV morphine and Zofran. Her Monospot is positive. Her transaminitis is stable. Case is discussed with GI who is comfortable with outpatient follow-up. I did page her PCP as well and I am awaiting on a callback. Patient be discharged home with Compazine and NSAIDs for pain control. Counseled on return precautions. Is able to tolerate p.o. in the ER. I think is a good candidate for outpatient follow-up. Counseled on blunt trauma precautions because she has had increased risk of splenic rupture or liver rupture. Lab Data Attestation: I reviewed the patient's lab results. Labs: Laboratory Results - last 24 hr 08/05/21 08/05/21 08/05/21 14:27 14:27 14:27 WBC 7.9 RBC 4.92 Hgb 13.8 Hct 41.2 MCV 83.7 MCH 28.0 MCHC 33.5 RDW Std Deviation 44.0 H RDW Coeff of Kaleigh 14.6 Plt Count 215 MPV 11.4 Immature Gran % (Auto) 0.800 Neut % (Auto) 41.7 L Lymph % (Auto) 50.2 H Dane % (Auto) 5.9 Eos % (Auto) 0.3 Baso % (Auto) 1.1 H Absolute Neuts (auto) 3.3 Absolute Lymphs (auto) 3.98 Nucleated RBC % 0 Differential Comment SCANNED Sodium 136 Potassium 3.9 Chloride 104 Carbon Dioxide 24.0 Anion Gap 8 BUN 10 Creatinine 0.83 Estim Creat Clear Calc 87.20 Est GFR (MDRD) Af Amer 109 Est GFR (MDRD) Non-Af 90 BUN/Creatinine Ratio 12.0 Glucose 81 Lactic Acid 1.1 Calcium 9.2 Total Bilirubin 1.40 H Direct Bilirubin 0.84 H AST 125 H ALT 249 H Alkaline Phosphatase 169 H Total Protein 7.7 Albumin 3.3 Globulin 4.4 H Lipase 98 Urine Color Urine Clarity Urine pH Ur Specific Bucks Urine Protein Urine Glucose (UA) Urine Ketones Urine Occult Blood Urine Nitrite Urine Bilirubin Urine Urobilinogen Ur Leukocyte Esterase Urine RBC Urine WBC Ur Squamous Epith Cells Urine Bacteria Urine Mucus Urine Test Monoscreen 08/05/21 08/05/21 14:27 14:27 WBC RBC Hgb Hct MCV MCH MCHC RDW Std Deviation RDW Coeff of Kaleigh Plt Count MPV Immature Gran % (Auto) Neut % (Auto) Lymph % (Auto) Dane % (Auto) Eos % (Auto) Baso % (Auto) Absolute Neuts (auto) Absolute Lymphs (auto) Nucleated RBC % Differential Comment Sodium Potassium Chloride Carbon Dioxide Anion Gap BUN Creatinine Estim Creat Clear Calc Est GFR (MDRD) Af Amer Est GFR (MDRD) Non-Af BUN/Creatinine Ratio Glucose Lactic Acid Calcium Total Bilirubin Direct Bilirubin AST ALT Alkaline Phosphatase Total Protein Albumin Globulin Lipase Urine Color Yellow Urine Clarity Clear Urine pH 6.0 Ur Specific Bucks 1.020 Urine Protein 100 H Urine Glucose (UA) Normal Urine Ketones 150 A* Urine Occult Blood 10 H Urine Nitrite Negative Urine Bilirubin 3 H Urine Urobilinogen 12 H Ur Leukocyte Esterase 25 H Urine RBC 0-5 SEEN Urine WBC 0-5 SEEN Ur Squamous Epith Cells 0 SEEN Urine Bacteria 1+ Urine Mucus 0 SEEN Urine Test Negative Monoscreen POSITIVE H Radiography Diagnostic Testing: Clinical Impression(s) from Imaging Studies Abdomen/Pelvis CT 08/05/21 14:03 IMPRESSION: Heterogeneous attenuation in the wall of the uterus with areas of low attenuation visualized, would recommend clinical correlation for degenerating fibroids that could result in abdominal pain.. Scattered mesenteric lymphadenopathy visualized. Prominence of the spleen and liver, no evidence of focal masses. Electronically Signed: Conner Luevano MD at 15:37 EDT Reading Location ID and State: [facility] / [place] Tel , Service support , Discharge Plan Triage Chief Complaint: General Illness ED Provider: Rajwinder Campbell Dx/Rx/DC Orders Clinical Impression: Mononucleosis, Transaminitis, Vomiting and diarrhea Prescriptions: New prochlorperazine maleate [Compazine] 10 mg tablet 10 mg PO TID PRN (Reason: nausea and vomiting) Qty: 20 RF: 0 ibuprofen 600 mg tablet 600 mg PO Q6H PRN PRN (Reason: Pain Score 1-10/10) Qty: 20 RF: 0 No Action cholecalciferol (vitamin D3) 50 mcg (2,000 unit) capsule 50 mcg PO DAILY RF: 0 famotidine [Pepcid] 20 mg tablet 20 mg PO DAILY RF: 0 fluticasone propionate 50 mcg/actuation spray,suspension 1 spray intranasal DAILY RF: 0 Saccharomyces boulardii [Daily Probiotic (S. boulardii)] 250 mg capsule 250 mg PO BID RF: 0 desogestrel-ethinyl estradiol [Apri] 0.15-0.03 mg tablet 1 tab PO QDAY Qty: 84 RF: 3 valacyclovir 500 mg tablet 500 mg PO QDAY Qty: 90 RF: 3 Primary Care Provider: Garry Samuels Referrals: Garry Samuels MD [Primary Care Provider] - Charles العراقي DO [STAFF PHYSICIAN] - Disposition Disposition: Home, Self Care Discharge Date/Time: 08/05/21 17:13
--- NOTE | 2021-08-05 14:03 | CT_ITS ---
INDICATION: abd pain, vomiting, transaminitis EXAMINATION: CT ABDOMEN AND PELVIS WITH CONTRAST - CT Abdomen And Pelvis W/ Contrast Injection TECHNIQUE: Helically acquired images were obtained of the abdomen and pelvis following IV contrast. A radiation dose optimization technique was used for this scan. IV Contrast dosage and agent: 100 ml of Isovue 300. Oral contrast: None. COMPARISON: None. FINDINGS: LOWER CHEST: Lung bases are clear. No cardiomegaly or pericardial effusion. LIVER: The liver is prominent in size, no evidence of hepatic masses.. No focal mass. GALLBLADDER AND BILIARY TREE: L opacification visualized in the gallbladder that could represent either sludge or subtle/small gallstones. Mild thickening of the wall of the gallbladder is visualized but no evidence of pericholecystic stranding is seen.. No gallbladder distension or wall edema. No intra- or extrahepatic biliary ductal dilation. PANCREAS: No focal cystic or solid mass. No evidence of stranding of the peripancreatic fat planes. SPLEEN: The spleen is prominent in size, no evidence of splenic masses is seen. ADRENAL GLANDS: No nodules. KIDNEYS AND URETERS: Normal renal size and position. No hydronephrosis. PERITONEUM: No ascites or free air. No other fluid collection. BOWEL: No evidence of acute appendicitis. No stomach or bowel distension. No focal inflammatory change. Mild thickening of the wall of the ascending and transverse colon is seen LYMPH NODES: Prominent scattered mesenteric lymph nodes are seen. Prominent lymph nodes visualized in the right lower quadrant. Bilateral inguinal lymphadenopathy seen. VESSELS: Aorta is non-dilated. URINARY BLADDER: Unremarkable. REPRODUCTIVE ORGANS: Anteverted uterus visualized. Heterogeneous attenuation visualized within the uterus most prominent in the fundus that could represent fibroids would recommend clinical correlation and if clinically indicated further evaluation with transvaginal pelvic ultrasound. Tampon visualized within the vaginal canal. ABDOMINAL WALL: No discrete abdominal or pelvic wall hernia. BONES: No lytic or blastic abnormality. CT/Abdomen/Pelvis W IV Cont ONLY IMPRESSION: Heterogeneous attenuation in the wall of the uterus with areas of low attenuation visualized, would recommend clinical correlation for degenerating fibroids that could result in abdominal pain.. Scattered mesenteric lymphadenopathy visualized. Prominence of the spleen and liver, no evidence of focal masses. Electronically Signed: Conner Luevano MD at 15:37 EDT ,
[2021-08-05] MEDS: Ondansetron 4 MG/2 ML Vial IV (14:24)
[2021-08-05] MEDS: 0.9% Normal Saline 1,000 ML 1000 ML IV (14:24)
[2021-08-05] MEDS: Morphine 4 MG/ML Syringe IV (14:24)
[2021-08-05 14:33] LABS: Mucous, Urine 0 SEEN /hpf (<or=2+); Squamous Epithelial Cells - UA 0 SEEN /hpf (5-10)
[2021-08-05 14:35] LABS: Glucose, Dipstick Normal (Normal); Leukocyte Esterase-Dipstick 25 /ul (Negative); Nitrite-Dipstick Negative (Negative); Occult Blood-Urine 10 /ul (Negative); Protein-Dipstick 100 mg/dl (Negative); Urine Clarity Clear (Clear); Urine Urobilinogen 12 mg/dl (Normal)
[2021-08-05 14:36] LABS: Ketone-Dipstick 150 mg/dl (Negative); Urine Bilirubin Dipstick 3 mg/dL (Negative)
[2021-08-05 14:38] LABS: Absolute Lymphocyte Count 3.98 X10^3/uL (0.83-4.51); Absolute Neutrophil Count 3.3 X10^3/uL (2.0-7.7); Basophil# 0.09 X10^3/uL; Basophil% 1.1 % (0-1); Color, Urine Yellow (Yellow); Eosinophil# 0.02 X10^3/uL; Eosinophils% 0.3 % (0-5); Hematocrit 41.2 % (37-47); Hemoglobin 13.8 g/dL (12.0-15.0); Lymphocyte # 3.98 X10^3/ul (0.83-4.51); Lymphocyte % 50.2 % (19-41); Mean Corp Hgb Conc 33.5 g/dL (32-36); Mean Corpuscular Volume 83.7 fL (81-99); Mean Platelet Vol. 11.4 fl (6.2-12.0); Monocyte# 0.47 X10^3/uL; Monocyte% 5.9 % (0-10); NRBC Flagged by Analyzer 0 % (0-5); Neutrophil # 3.31 X10^3/uL (2.7-7.7); Neutrophil % 41.7 % (47-70); POSITIVE MORPHOLOGY YES; Platelet Count 215 K/mm3 (150-450); RBC Distribution Width CV 14.6 % (11.6-14.6); Red Blood Count 4.92 M/mm3 (4.2-5.4); White Blood Count 7.9 K/mm3 (4.4-11.0)
[2021-08-05 14:40] LABS: Bacteria 1+ /hpf (None Seen); Internal QC Validated? YES +Cl - CLEAR BKGD; Red Blood Cells-Urine 0-5 SEEN /hpf (0-5); White Blood Cells 0-5 SEEN /hpf (0-5)
[2021-08-05 14:41] LABS: Differential Indicated SCAN CRITERIA MET; Pregnancy, Urine Negative Negative
[2021-08-05 14:50] LABS: AST(SGOT) 125 U/L (15-37); Alanine Aminotransfer ALT/SGPT 249 U/L (13-56); Albumin, Serum 3.3 g/dL (3.2-5.0); Alkaline Phosphatase 169 U/L (45-117); Anion Gap 8 (5-15); BUN 10 mg/dL (7-18); Bilirubin, Direct 0.84 mg/dL (0.00-0.30); Calcium,Total 9.2 mg/dL (8.5-10.1); Chloride 104 mmol/L (98-107); Creatinine, Serum 0.83 mg/dL (0.55-1.02); EST Glomerular Filtration Rate 90 mL/min (>60); Est Glom Filt Rate - Afr Amer 109 mL/min (>60); Globulin 4.4 g/dL (2.2-4.2); Glucose 81 mg/dL (74-106); Internal QC Validated? YES +Cl - CLEAR BKGD; Lipase 98 U/L (73-393); Monotest POSITIVE (Negative); Potassium 3.9 mmol/L (3.5-5.1); Protein, Total 7.7 g/dL (6.4-8.2); Sodium Level 136 mmol/L (136-145)
[2021-08-05 15:00] LABS: Lactic Acid 1.1 mmol/L (0.4-1.9)
[2021-08-05 15:16] LABS: Differential Comment SCANNED
[2021-08-05 15:54] VITALS: RESP 18; O2SAT 99
--- NOTE | 2021-08-05 17:12 | ED.RN ---
PATIENT PROVIDED WITH WORK EXCUSE FOR TODAY
== END 2021-08-05 17:13 | disposition home or self-care (01) ==
PROVIDERS: Emergency Provider Emergency Medicine; PCP Family Medicine; Visit Provider Emergency Medicine
DX: B27.90 Infectious mononucleosis, unspecified without complication (principal); R10.9 Unspecified abdominal pain; R74.01 Elevation of levels of liver transaminase levels; R68.83 Chills (without fever); B00.9 Herpesviral infection, unspecified; R19.7 Diarrhea, unspecified; R11.2 Nausea with vomiting, unspecified; Z79.899 Other long term (current) drug therapy
CPT/HCPCS: 74177; 80048; 80076; 81001; 81025; 83605; 83690; 85025; 86308; 96361; 96374; 96375; 99283; J7030; Q9967; A4216; J2405

== ENCOUNTER → 2021-12-02 | Outpatient (CLI) | payer BC, SELFPAY ==
[2021-12-02 16:05] LABS: hCG Titer Quant., Serum < 1 mIU/mL (1-3)
== END | disposition home or self-care (01) ==
LOC: PAVLAB 14:59
PROVIDERS: PCP Family Medicine; Referring Provider Obstetrics & Gynecology; Visit Provider Obstetrics & Gynecology
DX: N91.2 Amenorrhea, unspecified (principal)
CPT/HCPCS: 36415; 84702

== ENCOUNTER → 2021-12-14 | Outpatient (CLI) | payer BC, SELFPAY | END | disposition home or self-care (01) | PROVIDERS: PCP Family Medicine; Visit Provider Family Medicine | DX: M54.2 Cervicalgia (principal) | CPT/HCPCS: 87086 ==

== ENCOUNTER → 2022-08-05 | Outpatient (CLI) | payer OTHER, SELFPAY ==
[2022-08-05 12:07] LABS: Hematocrit 42.9 % (37-47); Mean Corp Hgb Conc 32.6 g/dL (32-36); Mean Corpuscular Hgb 27.3 pg (27.0-32.0); Mean Corpuscular Volume 83.8 fL (81-99); Mean Platelet Vol. 11.8 fl (6.2-12.0); Platelet Count 264 K/mm3 (150-450); RBC Distribution Width CV 13.2 % (11.6-14.6); Red Blood Count 5.12 M/mm3 (4.2-5.4); White Blood Count 6.4 K/mm3 (4.4-11.0)
[2022-08-05 12:45] LABS: Vitamin B12 458 pg/mL (211-911); Vitamin D,25 Hydroxy 23.9 ng/mL
[2022-08-05 12:57] LABS: AST(SGOT) 18 U/L (15-37); Alanine Aminotransfer ALT/SGPT 20 U/L (13-56); Albumin, Serum 3.4 g/dL (3.2-5.0); Alkaline Phosphatase 41 U/L (45-117); Anion Gap 2 (5-15); BUN 15 mg/dL (7-18); BUN/Creat Ratio 21.6 RATIO (10-20); Calcium,Total 9.1 mg/dL (8.5-10.1); Chloride 110 mmol/L (98-107); Creatinine, Serum 0.69 mg/dL (0.55-1.02); EST Glomerular Filtration Rate 110 mL/min (>60); Est Glom Filt Rate - Afr Amer 133 mL/min (>60); Globulin 3.3 g/dL (2.2-4.2); Glucose 93 mg/dL (74-106); Potassium 4.1 mmol/L (3.5-5.1); Protein, Total 6.7 g/dL (6.4-8.2); Sodium Level 138 mmol/L (136-145); T4 Free Direct 0.98 ng/dL (0.76-1.46); Thyroid Stim Hormone (TSH) 1.74 uIU/mL (0.358-3.74)
== END | disposition home or self-care (01) ==
PROVIDERS: PCP Family Medicine; Visit Provider Nurse Practitioner Family
DX: F32.A Depression, unspecified (principal); R53.83 Other fatigue
CPT/HCPCS: 36415; 80053; 82306; 82607; 84439; 84443; 85027

== ENCOUNTER → 2023-02-01 | Outpatient (CLI) | payer OTHER, SELFPAY ==
--- NOTE | 2023-02-01 10:25 | RAD_ITS ---
STUDY: X-RAY CHEST REASON FOR EXAM: Female, 22 years old. Cough with shortness of breath. TECHNIQUE: Frontal and lateral views of the chest. COMPARISON: August 02, 2021 FINDINGS: The lungs are clear and expanded. There is no demonstrated pleural abnormality. Normal size heart. Normal mediastinum and benjamin. Normal visualized pulmonary arteries. Normal visualized aortic arch and descending thoracic aorta. Normal visualized thoracic spine. Normal visualized ribs, clavicles, and shoulders. No abnormality of the visualized soft tissue structures of the upper abdomen. RAD/Chest PA and Lateral IMPRESSION: No interval change and no acute or active cardiopulmonary disease. Electronically Signed: Dontrell Rodríguez MD at 10:45 EDT ,
== END | disposition home or self-care (01) ==
LOC: MTRAD 10:24
PROVIDERS: PCP Family Medicine; Referring Provider Family Medicine; Visit Provider Family Medicine
DX: R05.9 Cough, unspecified (principal); J39.9 Disease of upper respiratory tract, unspecified; J45.909 Unspecified asthma, uncomplicated
CPT/HCPCS: 71046

== ENCOUNTER 2023-04-26 15:18 | Emergency (ER) | payer OTHER, SELFPAY ==
[2023-04-26 15:21] VITALS: BP 131/94; PULSE 79; RESP 14; TEMP 36.2; O2SAT 98; BMI 44.5
--- NOTE | 2023-04-26 16:08 | EX.ED.GENINJ ---
HPI History of Present Illness Chief Complaint: Head Injury Informant: patient Onset/Context/Timing Onset: Today Mechanism/Context: Blunt Injury Quality of Pain: Aching, Burning, Throbbing and - (Pressure) Location: Head Worsened by: Noises Relieved by: Nothing Associated Symptoms Associated Symptoms: Positive for Parasthesias and Weakness; Negative for Loss of function, Inability to ambulate or Loss of consciousness Narrative Narrative: Presents after head injury that occurred today. Patient states she was kicked in the head by a dog. Patient denies any loss of consciousness. Patient states she did fall to the ground. Patient states she was seeing dots in her vision after the injury. Patient admits to some nausea but denies any vomiting. Patient states she felt numb and tingly all over after the injury. Patient states that this lasted for several hours. Patient states she had similar symptoms with prior concussion. Patient admits to some mild neck pain. [facility] Medical History Insomnia due to mental disorder PTSD (post-traumatic stress disorder) Home Medications cholecalciferol (vitamin D3) 50 mcg (2,000 unit) capsule 50 mcg PO DAILY 04/30/20 [History Last Taken Unknown] famotidine 20 mg tablet (Pepcid) 20 mg PO DAILY 11/11/20 [History Last Taken Unknown] fluticasone propionate 50 mcg/actuation nasal spray,suspension 1 spray intranasal DAILY 11/11/20 [History Last Taken Unknown] escitalopram oxalate 20 mg tablet mg PO 03/01/23 [History Last Taken Unknown] medroxyprogesterone 10 mg tablet mg PO 03/01/23 [History Last Taken Unknown] doxepin 10 mg capsule 10 mg PO DAILY #30 caps 04/18/23 [Rx Last Taken Unknown] prazosin 1 mg capsule 1 mg PO QHS #30 caps 04/18/23 [Rx Last Taken Unknown] Allergy/AdvReac Type Severity Reaction Status Date / Time cefixime [From Suprax] Allergy Rash Verified 04/26/23 15:21 Family History Father Diabetes Grandmother Diabetes Surgical History History of surgery on arm Social History household members: friend(s) number of children: 0 current occupational status: employed current occupation: [employer], [place], [employer], [employer] history of recent travel: No sexually active: Yes Smoking Status: Never smoker alcohol intake: current alcohol intake frequency: a few times a month substance use type: does not use what type of physical activity do you participate in: none seatbelt use: always do you feel safe at home: Yes ROS ROS ED Constitutional Constitutional ED: Denies chills or fever(s) Eyes Eyes: Reports change in vision; Denies blurry vision ENT ENT ED: Denies rhinorrhea or sore throat Cardiovascular Cardiovascular: Denies chest pain or palpitations Respiratory/Chest Respiratory/Chest: Denies cough or dyspnea Gastrointestinal Gastrointestinal: Reports nausea; Denies vomiting Genitourinary Genitourinary ED: Denies dysuria or hematuria Musculoskeletal Musculoskeletal: Reports neck pain; Denies back pain Integumentary Denies abscess or rash Neurologic Neurologic: Reports headache(s); Denies weakness Allergic/Immunologic Allergic/Immunologic ED: Denies mouth swelling or urticaria EXAM Physical Exam Const Vital Signs: 04/26/23 15:21 04/26/23 16:23 Temperature 97.2 F L Temperature Source Temporal Pulse Rate 79 Respiratory Rate 14 Respiratory Effort Normal Non-Labored Blood Pressure 131/94 H Blood Pressure Mean 106 Pulse Ox 98 Oxygen Delivery Method Room Air Room Air Positive well nourished, well developed and obese General Appearance ED: well developed and NAD Nutritional Appearance: obese HEENT tenderness Throat: other Other Details: Pharynx is clear. Airway is patent. Eyes PERRL and EOMs intact bilaterally Neck full ROM Neck Narrative: There is mild cervical paraspinal tenderness. There is no midline tenderness. There is no bony crepitance or step-off. Range of motion was slightly limited secondary to pain. General: tenderness Resp normal respiratory effort and clear to auscultation bilaterally Cardio regular rhythm Rate: regular rate GI non-tender and non-distended Palpation: soft Extremity normal to inspection and full ROM Neuro oriented x3, CN's II-XII intact bilaterally, moves all extremities, no focal motor deficits and no sensory deficits noted Danielle Coma Scale: document GCS findings Spontaneous Obeys Commands Oriented 15 Sensorium / Orientation: alert Motor Exam: strength 5/5 throughout Psych mental status grossly normal and thought process normal MDM MDM MDM Narrative Medical decision making narrative: Differential diagnosis includes concussion, intracranial bleeding, and closed head injury. CT scan of the brain will be obtained to assess for intracranial bleeding. Radiography Diagnostic Testing: Clinical Impression(s) from Imaging Studies Brain CT 04/26/23 16:48 IMPRESSION: Normal unenhanced CT scan of the brain. Electronically Signed: Anay Paniagua MD at 17:06 EST , CT scan of the brain was obtained. There is no acute intracranial abnormality. This was interpreted by the radiologist and was also independently reviewed by myself. Treatment and Re-Evaluation Narrative: Patient was given IV fluids, Reglan, and Benadryl. Patient was feeling better on reevaluation. Patient was advised of her findings. Patient was instructed to drink plenty of fluids. Patient was instructed to limit her screen time on her phone and tablets. Patient was instructed to follow-up with her primary care physician in 5 to 7 days. Patient understood and was agreeable with the plan. All questions were answered. Discharge Plan Triage Chief Complaint: Head Injury ED Provider: Jp Parra Dx/Rx/DC Orders Clinical Impression: Closed head injury, Obesity Instructions: ED Head Injury (Adult) Prescriptions: No Action cholecalciferol (vitamin D3) 50 mcg (2,000 unit) capsule 50 mcg PO DAILY famotidine [Pepcid] 20 mg tablet 20 mg PO DAILY fluticasone propionate 50 mcg/actuation spray,suspension 1 spray intranasal DAILY Rx Instructions: administer into each nostril medroxyprogesterone 10 mg tablet PO Patient Comments: TAKE 1 TABLET BY MOUTH EVERY DAY escitalopram oxalate 20 mg tablet PO doxepin 10 mg capsule 10 mg PO DAILY Qty: 30 2RF prazosin 1 mg capsule 1 mg PO QHS Qty: 30 1RF Primary Care Provider: Garry Samuels Referrals: Garry Samuels MD [Primary Care Provider] - 5-7 Days [facility] [Non-Staff] - 5-7 Days Disposition Disposition: Home, Self Care
--- OUTSIDE RECORDS SUMMARY | 2023-04-26 16:11 | XMS RPT_ITS | CCD ---
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 Name Role Phone Link Samuels Primary Care Provider Unavailable Primary Care Provider Unavailabl e Unavailable Primary Care Provider Unavailabl e Unknown, Pcp Unavailable Unavailable Vasyl Oakley Unavailable UNKNOWN, PCP Primary Care Unavailable Naldo Mckee Attending Unavailable Candie, Vasyl Attending Unavailable UNKNOWN, PCP Primary Care Unavailable MD NAREN VALLECILLO Attending Unavailable UNKNOWN, PCP Primary Care Unavailable MD VALDEMAR VANCE Emergency Provider LIZZ SAMUELS Primary Care Unavailable UNKNOWN, PROVIDER Attending Unavailable JULIAN, ESTHER Referring Unavailable DANI STUART Attending Unavailable JULIAN, ESTHER Attending Unavailable JULIAN, ESTHER Attending Unavailable JULIAN, ESTHER Attending Unavailable JULIAN, ESTHER Attending Unavailable JULIAN, ESTHER Referring Unavailable JULIAN, ESTHER Attending Unavailable JULIAN, ESTHER Referring Unavailable OSMANYJUAN JOSÉ Attending Unavailable FELIPE DE LA ROSA Referring Unavailable JULIAN, ESTHER Attending Unavailable CANDIEVASYL Referring Unavailable CANDIE, VASYL Wisodm Referring Unavailable JULIAN, ESTHER Attending Unavailable BAGIDOMI Attending Unavailable JULIAN, ESTHER Referring Unavailable Allergies Allergy Classification Reported Allergen(s) Allergy Type Date of Onset Reaction(s) Facility (20 sources) Cefixime; Translations: [CEFIXIME] Drug Allergy 7 Rash [facility] (1 source) Cefixime Drug Allergy 3 [facility] Repository NEGATED: Highlighted row has been ruled out!Unclassified (1 source) Other Propensity to adverse reactions 1 Rash [facility] Medications Current Medications Medication Drug Class(es) Dates Sig (Normalized) Sig (Original) amoxicillin 875 mg / clavulanate 125 mg oral tablet (2 sources) Penicillin-class Antibacterial Start: 11-26-2020 End: 12-06-2020 take 1 tablet by mouth twice daily amoxicillin-clav ulanate (AUGMENTIN) 875-125 MG per tablet Take 1 tablet by mouth 2 times daily for 10 days 20 tablet 0 11/26/2020 12/06/2020 Active Completed/Discontinued Medications Medication Drug Class(es) Dates Sig (Normalized) Sig (Original) acetaminophen 500 mg oral tablet (20 sources) Start: 07-14-2022 take 1 tablet by mouth every six hours as needed for pain acetaminophen (TYLENOL) 500 mg tablet Indications: Gastroenteritis Take 1 tablet by mouth every 6 hours as needed for pain or fever (specify). 56 tablet 1 07/14/2022 Active Problems Active Problems Problem Classification Problem Date Documented Da te Episodic/Chronic Cardiac dysrhythmias (5 sources) Palpitations; Translations: [Palpitations] Onset: 3 09-16-2022 Episodic Headache; including migraine (1 source) Headache; including migraine; Translations: [Headache, unspecified] Onset: 3 Lymphadenitis (1 source) Acute lymphadenitis; Translations: [Acute lymphadenitis, unspecified] 09-24-2022 Episodic Menopausal disorders (3 sources) Menorrhagia; Translations: [Excessive bleeding in the premenopausal period] Onset: 3 Chronic Menstrual disorders (20 sources) Dysmenorrhea; Translations: [Dysmenorrhea, unspecified] Onset: 7 10-06-2019 Chronic Mood disorders (20 sources) Major depression, single episode; Translations: [Major depressive disorder, single episode, unspecified] Onset: 7 10-06-2019 Chronic Noninfectious gastroenteritis (1 source) Gastroenteritis; Translations: [Noninfective gastroenteritis and colitis, unspecified] Episodic Nonspecific chest pain (4 sources) Atypical chest pain; Translations: [Other chest pain] Onset: 3 09-16-2022 Episodic Other connective tissue disease (1 source) Muscle pain; Translations: [Myalgia, unspecified site] Episodic Other female genital disorders (7 sources) Abnormal uterine bleeding; Translations: [Other specified abnormal uterine and vaginal bleeding] Chronic Other female genital disorders (1 source) Vaginal bleeding; Translations: [Abnormal uterine and vaginal bleeding, unspecified] Chronic Other female genital disorders (2 sources) Abnormal uterine and vaginal bleeding, unspecified; Translations: [Abnormal uterine bleeding (AUB)] Onset: 3 Chronic Other female genital disorders (1 source) Other specified abnormal uterine and vaginal bleeding; Translations: [DUB (dysfunctional uterine bleeding)] Onset: 3 Chronic Other female genital disorders (1 source) Vaginal discharge; Translations: [Other specified noninflammatory disorders of vagina] Episodic Other lower respiratory disease (1 source) Cough; Translations: [Acute cough] 01-14-2023 Episodic Other nutritional; endocrine; and metabolic disorders (20 sources) Childhood obesity; Translations: [Obesity, unspecified] Onset: 6 10-06-2019 Chronic Other nutritional; endocrine; and metabolic disorders (20 sources) Metabolic syndrome X; Translations: [Metabolic syndrome] Onset: 7 10-06-2019 Chronic Other nutritional; endocrine; and metabolic disorders (1 source) Other symptoms and signs concerning food and fluid intake; Translations: [Other symptoms and signs concerning food and fluid intake] Onset: 3 Episodic Other screening for suspected conditions (not mental disorders or infectious disease) (7 sources) Patient encounter status; Translations: [Encounter for screening for other suspected endocrine disorder] Onset: 3 Episodic Other upper respiratory infections (2 sources) Sore throat symptom; Translations: [Acute pharyngitis, unspecified] 01-14-2023 Episodic Phlebitis; thrombophlebitis and thromboembolism (1 source) Phlebitis; Translations: [Phlebitis and thrombophlebitis of unspecified site] 09-24-2022 Episodic Unclassified (2 sources) CHEST PAIN & PALPATATIONS DIZZY & LIGHT HEADED 09-16-2022 Past or Other Problems Problem Classification Problem Date Documented Date Episodic/Chronic Abdominal pain (2 sources) Abdominal pain; Translations: [Unspecified abdominal pain] Onset: 09-18-2022 Episodic Blindness and vision defects (2 sources) Visual disturbance; Translations: [Unspecified visual disturbance] Onset: 09-18-2022 Episodic Conditions associated with dizziness or vertigo (6 sources) Dizziness; Translations: [Dizziness and giddiness] Onset: 09-16-2022 09-16-2022 Episodic E Codes: Natural/environment (2 sources) Cat bite - wound; Translations: [Bitten by cat, initial encounter] Onset: 05-30-2022 Episodic Genitourinary symptoms and ill-defined conditions (1 source) Unspecified symptoms and signs involving the genitourinary system; Translations: [UTI symptoms] Onset: 11-03-2022 Episodic Malaise and fatigue (3 sources) Fatigue; Translations: [Other fatigue] Onset: 09-16-2022 Episodic Nausea and vomiting (3 sources) Nausea; Translations: [Nausea] Onset: 05-30-2022 Episodic Nonmalignant breast conditions (2 sources) Increased ; Translations: [Galactorrhea not associated with childbirth] Onset: 11-15-2022 11-15-2022 Episodic Other connective tissue disease (1 source) Myalgia, unspecified site; Translations: [Myalgia] Onset: 09-18-2022 Episodic Other lower respiratory disease (1 source) Pleurodynia; Translations: [Pleuritic chest pain] Onset: 04-05-2022 Episodic Other nervous system disorders (2 sources) Paresthesia of skin; Translations: [Paresthesia of skin] Onset: 05-30-2022 Episodic Results Test Name Value Interpretation Reference Range Facil ity Vital Signs Date Time Vital Sign Value Performing Clinician Facility 01-14-2023 12:02-0400 Body temperature 98.6 [degF] Jossie Garcia PA-C Work Phone: [facility] 01-14-2023 12:02-0400 Diastolic blood pressure 76 mm[Hg] Jossie Garcia PA-C Work Phone: [facility] 01-14-2023 12:02-0400 Heart rate 87 /min Jossie Garcia PA-C Work Phone: [facility] 01-14-2023 12:02-0400 SaO2% (BldA) [Mass fraction] 99 % Jossie Garcia PA-C Work Phone: [facility] 01-14-2023 12:02-0400 Systolic blood pressure 117 mm[Hg] Jossie Garcia PA-C Work Phone: [facility] 11-22-2022 11:57-0400 Body weight 98.88 kg Esther Jordan MD Work Phone: [facility] 11-22-2022 11:57-0400 Diastolic blood pressure 80 mm[Hg] Esther Jordan MD Work Phone: [facility] 11-22-2022 11:57-0400 Systolic blood pressure 108 mm[Hg] Esther Jordan MD Work Phone: [facility] 09-24-2022 11:36-0400 Body temperature 97.8 [degF] MD VALDEMAR VANCE Work Phone: [facility] 09-24-2022 11:36-0400 Body weight 88.45 kg MD VALDEMAR VANCE Work Phone: [facility] 09-24-2022 11:36-0400 Diastolic blood pressure 90 mm[Hg] MD VALDEMAR VANCE Work Phone: [facility] 09-24-2022 11:36-0400 Heart rate 97 /min MD VALDEMAR VANCE Work Phone: [facility] 09-24-2022 11:36-0400 Respiratory rate 16 /min MD VALDEMAR VANCE Work Phone: [facility] 09-24-2022 11:36-0400 SaO2% (BldA) [Mass fraction] 97 % MD VALDEMAR VANCE Work Phone: [facility] 09-24-2022 11:36-0400 Systolic blood pressure 123 mm[Hg] MD VALDEMAR VANCE Work Phone: [facility] 09-18-2022 14:02-0400 Body temperature 98.49 [degF] Domi Perez APRN.CNP Work Phone: [facility] 06-04-2023 14:02-0400 Diastolic blood pressure 86 mm[Hg] Domi Bagi MECHANICAL OXIDIZER.SUPERINTENDENT MAINTENANCE Work Phone: [facility] 09-18-2022 14:02-0400 Heart rate 87 /min Domi Bagi MECHANICAL OXIDIZER.SUPERINTENDENT MAINTENANCE Work Phone: [facility] 09-18-2022 14:02-0400 Respiratory rate 15 /min Domi Bagi MECHANICAL OXIDIZER.SUPERINTENDENT MAINTENANCE Work Phone: [facility] 09-18-2022 14:02-0400 SaO2% (BldA) [Mass fraction] 98 % Domi Bagi MECHANICAL OXIDIZER.SUPERINTENDENT MAINTENANCE Work Phone: [facility] 09-18-2022 14:02-0400 Systolic blood pressure 122 mm[Hg] Domi Bagi MECHANICAL OXIDIZER.SUPERINTENDENT MAINTENANCE Work Phone: [facility] 09-16-2022 05:02-0400 Diastolic blood pressure 76 mm[Hg] Pcp Unknown [facility] 09-16-2022 05:02-0400 Systolic blood pressure 118 mm[Hg] Pcp Unknown [facility] 07-14-2022 15:14-0400 Body temperature 98.4 [degF] Andrius Biliunas PA-C Work Phone: [facility] 07-14-2022 15:14-0400 Diastolic blood pressure 79 mm[Hg] Andrius Biliunas PA-C Work Phone: [facility] 07-14-2022 15:14-0400 Heart rate 92 /min Andrius Biliunas PA-C Work Phone: [facility] 07-14-2022 15:14-0400 SaO2% (BldA) [Mass fraction] 98 % Andrius Biliunas PA-C Work Phone: [facility] 07-14-2022 15:14-0400 Systolic blood pressure 114 mm[Hg] Andrius Biliunas PA-C Work Phone: [facility] 06-13-2022 14:35-0500 Body weight 89.81 kg Esther Jordan MD Work Phone: [facility] 06-13-2022 14:35-0500 Diastolic blood pressure 70 mm[Hg] Esther Jordan MD Work Phone: [facility] 06-13-2022 14:35-0500 Systolic blood pressure 110 mm[Hg] Esther Jordan MD Work Phone: [facility] 06-02-2022 13:26-0500 Body height 160 cm Juan José Marroquin MD Work Phone: [facility] 06-02-2022 13:26-0500 Body weight 86.18 kg Juan José Marroquin MD Work Phone: [facility] 06-02-2022 13:26-0500 Diastolic blood pressure 78 mm[Hg] Juan José Marroquin MD Work Phone: [facility] 06-02-2022 13:26-0500 Systolic blood pressure 126 mm[Hg] Juan José Marroquin MD Work Phone: [facility] 04-26-2022 14:31-0500 Body weight 89.36 kg Esther Jordan MD Work Phone: [facility] 04-26-2022 14:31-0500 Diastolic blood pressure 80 mm[Hg] Esther Jordan MD Work Phone: [facility] 04-26-2022 14:31-0500 Systolic blood pressure 126 mm[Hg] Esther Jordan MD Work Phone: [facility] 04-20-2022 12:58-0500 Body temperature 98.8 [degF] Felipe De La Rosa PA-C Work Phone: [facility] 04-20-2022 12:58-0500 Diastolic blood pressure 87 mm[Hg] Felipe De La Rosa PA-C Work Phone: [facility] 04-20-2022 12:58-0500 Heart rate 91 /min Felipe De La Rosa PA-C Work Phone: [facility] 04-20-2022 12:58-0500 Respiratory rate 16 /min Felipe De La Rosa PA-C Work Phone: [facility] 04-20-2022 12:58-0500 SaO2% (BldA) [Mass fraction] 97 % Felipe De La Rosa PA-C Work Phone: [facility] 04-20-2022 12:58-0500 Systolic blood pressure 127 mm[Hg] Felipe De La Rosa PA-C Work Phone: [facility] 01-29-2022 09:26-0400 Body temperature 98.29 [degF] Zayra Stroud MD Work Phone: [facility] 01-29-2022 09:26-0400 Diastolic blood pressure 78 mm[Hg] Zayra Stroud MD Work Phone: [facility] 01-29-2022 09:26-0400 Heart rate 74 /min Zayra Stroud MD Work Phone: [facility] 01-29-2022 09:26-0400 Respiratory rate 18 /min Zayra Stroud MD Work Phone: [facility] 01-29-2022 09:26-0400 Systolic blood pressure 120 mm[Hg] Zayra Stroud MD Work Phone: [facility] 11-26-2020 14:47-0400 Diastolic blood pressure 86 mm[Hg] Sean Redmond MD Work Phone: [facility] Work Phone: 11-26-2020 14:47-0400 Heart rate 74 /min Sean Redmond MD Work Phone: [facility] Work Phone: 11-26-2020 14:47-0400 Respiratory rate 14 /min Sean Redmond MD Work Phone: [facility] Work Phone: 11-26-2020 14:47-0400 SaO2% (BldA) [Mass fraction] 100 % Sean Redmond MD Work Phone: [facility] Work Phone: 11-26-2020 14:47-0400 Systolic blood pressure 137 mm[Hg] Sean Redmond MD Work Phone: [facility] Work Phone: 11-26-2020 09:48-0400 Body height 160 cm Sean Redmond MD Work Phone: [facility] Work Phone: 11-26-2020 09:48-0400 Body mass index (BMI) [Ratio] 38.97 kg/m2 Sean Redmond MD Work Phone: [facility] Work Phone: 11-26-2020 09:48-0400 Body temperature 98.49 [degF] Sean Redmond MD Work Phone: [facility] Work Phone: 11-26-2020 09:48-0400 Body weight 99.79 kg Sean Redmond MD Work Phone: [facility] Work Phone: Encounters Encounter Date Encounter Type Care Provider Facility Start: 03-17-2023 Telephone encounter Esther christian MD Work Phone: [facility] Procedures Date Procedure Procedure Detail Performing Clinician Start: 12-15-2022 Us pelvic nonobstetr ic real-time image complete Esther Jordan MD Work Phone: Start: 09-24-2022 Plain X-ray of right elbow MD VALDEMAR VANCE Work Phone: Start: 09-18-2022 End: 09-18-2022 Urnls dip stick/tablet rgnt auto w/o microscopy Domi Perez MECHANICAL OXIDIZER.SUPERINTENDENT MAINTENANCE Work Phone: Start: 09-16-2022 End: 09-16-2022 EKG impression Vasyl Oakley Start: 06-13-2022 Urine test visual color cmprsn meths Esther Jordan MD Work Phone: Start: 06-02-2022 Saline infus sonohysterography w/color doppler Esther Jordan MD Work Phone: Start: 01-29-2022 Urine test visual color cmprsn meths Zayra Stroud MD Work Phone: Start: 11-26-2020 Radex hand minimum 3 views Sean Redmodn MD Work Phone: Plan of Treatment Date Care Activity Detail Author Start: 12-30-2029 DTaP/Tdap/Td vaccine (8 - Td or Tdap) DTaP/Tdap/Td vaccine (8 - Td or Tdap) [facility] Work Phone: Start: 12-30-2029 Urine microalbumin profile [facility] Start: 04-26-2025 PAP TESTING PAP TESTING [facility] Start: 03-06-2023 End: 06-05-2023 Choriogonadotropin.beta subunit [Units/volume] in Serum or Plasma HCG QUANTITATIVE Lab Routine Encounter for test, result unknown Expected: 03/06/2023, Expires: 06/05/2023 [facility] Work Phone: Immunizations Immunization Date Immunization Notes Care Provider Fa cili 11-26-2020 Human rabies vaccine from Chicken fibroblast culture Sean Redmond MD Work Phone: [employer] Work Phone: 12-31-2019 tetanus toxoid, redu jewel diphtheria toxoid, and acellular pertussis vaccine, adsorbed Hilary Joya RN [facility] 12-02-2015 meningococcal polysaccharide (groups A, C, Y and W-135) diphtheria toxoid conjugate vaccine (MCV4P) Hilary Joya RN [facility] 05-10-2012 hepatitis A vaccine, pediatric/adolescent dosage, 2 dose schedule Hilary Joya RN [facility] 05-10-2012 human papilloma viru s vaccine, quadrivalent Hilary Joya RN [facility] 01-09-2012 human papilloma viru s vaccine, quadrivalent Hilary Joya RN [facility] 11-07-2011 hepatitis A vaccine, pediatric/adolescent dosage, 2 dose schedule Hilary Joya RN [facility] 11-07-2011 human papilloma viru s vaccine, quadrivalent Hilary Joya RN [facility] 10-30-2010 meningococcal polysaccharide (groups A, C, Y and W-135) diphtheria toxoid conjugate vaccine (MCV4P) Hilary Joya RN [facility] 10-30-2010 tetanus toxoid, redu jewel diphtheria toxoid, and acellular pertussis vaccine, adsorbed Hilary Joya [facility] 10-30-2010 varicella virus vaccine Hilary wills RN [facility] 11-19-2002 diphtheria, tetanus toxoids and acellular pertussis vaccine Hilary Joya RN [facility] 11-19-2002 measles, mumps and rubella virus vaccine Hilary Joya [facility] 11-19-2002 poliovirus vaccine, inactivated Hilary Joya [facility] 11-30-1999 diphtheria, tetanus toxoids and acellular pertussis vaccine Hilary Joya [facility] 11-30-1999 hepatitis B vaccine, pediatric or pediatric/adolescent dosage Hilary Joya [facility] 11-30-1999 poliovirus vaccine, inactivated Hilary Joya [facility] 08-09-1999 haemophilus influenz ae type b vaccine, PRP-T conjugate Hilary Joya [facility] 08-09-1999 measles, mumps and rubella virus vaccine Hilary Joya [facility] 05-12-1999 varicella virus vaccine Hilary wills [facility] 02-12-1999 haemophilus influenz ae type b vaccine, PRP-T conjugate Hilary Joya [facility] 1998 diphtheria, tetanus toxoids and acellular pertussis vaccine Hilary Joya [facility] 1998 hepatitis B vaccine, pediatric or pediatric/adolescent dosage Hilary Joya [facility] 1998 diphtheria, tetanus toxoids and acellular pertussis vaccine Hilary Joya [facility] 1998 haemophilus influenz ae type b vaccine, PRP-T conjugate Hilary Joya [facility] 1998 poliovirus vaccine, inactivated Hilary Joya [facility] 1998 diphtheria, tetanus toxoids and acellular pertussis vaccine Hilary Joya [facility] 1998 poliovirus vaccine, inactivated Hilary Joya [facility] 1998 hepatitis B vaccine, pediatric or pediatric/adolescent dosage Hilary Joya [facility] Payers Date Payer Category Payer Unknown CLAIM # PENDING 2022 Unknown [id number] 2020 Unknown [id number] 2019 Unknown [id number] 2019 Private Health Insurance [employer] A [employer] NAP CHOICE POS II [id number] 2019-Present [phone] [address] [place] [address] [id number] 1998 Unknown [id number] 1998 Unknown [id number] 1998 Unknown [id number] Unknown [id number] Social History Date Type Detail Facility Start: 09-06-2020 End: 04-05-2022 Tobacco smoking status [facility] Never smoker [facility] Start: 09-06-2020 End: 04-05-2022 Tobacco use and exposure Never used [facility] Start: 09-06-2020 Alcohol intake Lifetime non-d hilda (finding) [employer] Work Phone: Start: 2000 Sex Assigned At Not on file [employer] Work Phone: Start: 01-18-2022 End: 01-28-2022 Exposure to SARS-CoV-2 (event) Not sure [employer] Start: 12-31-2019 End: 04-20-2022 Alcohol intake Current non-drinker of alcohol (finding) [facility] Start: 04-26-2022 End: 03-06-2023 Alcohol intake Current drinker of alcohol (finding) [facility] Start: 04-26-2022 Alcohol Comment 1-2 drinks a krystal Lucho [facility] Start: 2000 Sex Assigned At Female [facility] Work Phone: Tobacco smoking consumption unknown [facility] Start: 10-13-2022 Occasionally [facility] Start: 10-13-2022 No [facility] Start: 09-18-2022 End: 12-16-2022 History of Social function [facility] Start: 09-18-2022 End: 12-16-2022 Tobacco use panel [facility] PHQ-2 Score 0 [facility] Start: 04-26-2022 Gender identity Identifies as female gender (finding) [facility] Work Phone: Start: 04-26-2022 Sexual orientation Heterosexual (jaimie rabago) [facility] Work Phone: Mental Status Date Assessment Result Facility 09-24-2022 Cognitive function Level Of Cons ciousness Awake;Alert;Appropriate;Follow s Comm[facility] Work Phone: Clinical Notes 11-26-2020 to 03-17-2023 Telephone Encounter - Shahana Ascencio RN - 03/17/2023 4:01 PM ESTTelephone Encounter - Suleman Ray MD - 03/17/2023 1:22 PM ESTTelephone Encounter - Shahana Ascencio RN - 03/17/2023 9:36 AM EST Note Date & Type Note Facility 03-17-2023 Miscellaneous Notes Spoke with pt and advised of refill that was sent to pharmacy. Pt advised she can take ibuprofen or tylenol for cramping and let us know if spotting becomes worse. Can send Dazot message or call in, whichever she prefers. Shahana Ascencio RN The following approved medication requests have been transmitted electronically. Requested Prescriptions Signed Prescriptions Disp Refills medroxyPROGESTERone (PROVERA) 10 mg tablet 30 tablet 0 Sig: Take 1 tablet by mouth once daily. Authorizing Provider: SULEMAN RAY MD Dr. Ray, It also looks like she will need a refill on the provera. Thank you, Shahana Ascencio RN Dr. Ray, Pt is on Provera 10mg daily and had been doing fine. Earlier this months he had taken a test X2 and it had faint lines so she was advised to stop the provera and she had labwork done. It ended up being negative but she missed 2 doses of the provera (quant was on 03/07), She is now c/o spotting and intermittent cramping that is getting stronger. She does rate it a 5-6 at times. Can you advise. Thank you, Shahana Ascencio RN Patient says she is still spotting. Earnestine Lamar documented in this encounter [facility] 03-08-2023 Miscellaneous Notes Call to inform serum HCG was negative Pt was appreciative Please call the patient and inform her that she is not . follow up as needed. Thank you, Esther Jordan MD documented in this encounter [facility] 03-07-2023 Miscellaneous Notes Spoke with pt. She had 2 faint positive home tests over the weekend, a quant was ordered yesterday. She has yet to go to the lab. She took another home test this morning and it was negative. Pt advised to go to the lab today so we can determine which route to go with plan of care. Pt to not take her provera today. She also takes Trazadone to help her sleep, advised to not take that tonight if we don't have the results back yet or it is positive. She verbalizes understanding. Shahana Ascencio RN Patient has some questions. Earnestine Lamar documented in this encounter [facility] [facility] 03-06-2023 Miscellaneous Notes Pt called back, verified by name & . Informed to go to lab for HCG levels to be drawn & to stop taking provera. Instructed to use condoms in the meantime. Pt will call back to schedule appt as needed. Jalen Salinas RN Patient called-no answer, message left for her to return my call. Please schedule her an in person appointment. She needs to go to the lab for her quant HCG. If she is sexually active, she needs to use condoms until lab results are known and if she is negative, she should continue her condoms. Thank you, Esther Jordan MD Called pt, verified by name & . Pt states she had a faint positive urine test 03/04 & 03/05, but isn't sure. HCG pended. Jalen Salinas RN Is this current Rx she's is it a control or not? She tested positive on test over the weekend. Could it be false positives? Pharmacy confirmed. Aster Bundy documented in this encounter [facility] 02-20-2023 Miscellaneous Notes The following approved medication requests have been transmitted electronically. Requested Prescriptions Signed Prescriptions Disp Refills medroxyPROGESTERone (PROVERA) 10 mg tablet 30 tablet 0 Sig: take 1 tablet by mouth every day Authorizing Provider: ESTHER JORDAN She needs to set up a follow up appointment Esther Jordan MD [facility] 01-26-23 for virtual visit for AUB and given Rx at that visit, will need a refill. Thank you,Shahana Ascencio RN documented in this encounter [facility] 02-07-2023 Miscellaneous Notes The following approved medication requests have been transmitted electronically. Refill for provera 30 days sent. Please tell the patient. Esther Jordan MD Dr. Jordan, She was given a 30 day supply on 01/09/23 with no refills. She has an appt with you on 02-17-23. Can you send in another 30 day supply for her to get her through the appt time. Thank you,Shahana Ascencio RN Refill request for provera, 90 day supply received. It is inappropriate to fill for 90 days at this time. Refill request denied. Please tell the patient. Thank you, Esther Jordan MD documented in this encounter [facility] 02-06-2023 Miscellaneous Notes Left msg for pt that if she is spotting yes she can keep the 02/17 appt. If the bleeding stops she can cancel it and then do the 3 month f/u as was previously recommended. Advised that she can call with questions. Shahana Ascencio RN Pt wants to know if she could keep the in office visit scheduled for 02/17/23. She is spotting again. Aster Bundy documented in this encounter [facility] 01-26-2023 Note HNO ID: [id number] Author: Esther Jordan MD Service: ? Author Type: Physician Type: Progress Notes Filed: 01/26/2023 4:41 PM Note Text: VIRTUAL VISIT PROGRESS NOTE This is a virtual visit using [employer] Video Visit/no visual her camera would not work. It required patient-provider interaction for the medical decision making as documented below. I have communicated my name and active licensure. The patient's identity and physical location were verified at the time of this visit. Either the patient or their legal advertising representative has been informed of the risks and benefits of -- and alternatives to -- treatment through a remote evaluation and consents to proceed with the evaluation remotely. Victorina Blevins is a 22 year old female seen for: Follow up on abnormal uterine bleeding Last visit December 16, 2022 At that time she was taking megestrol and not feeling well with headaches She was concerned that the megestrol was causing these symptoms At that visit she was changed from megestrol to provera 10 mg a day She has had spotting that occurs approximately 2 days since starting the provera Her headaches are improved and she is feeling better HISTORY REVIEWED (electronic chart only): PAST MEDICAL HISTORY Diagnosis Date Dysmetabolic syndrome Infectious mononucleosis 06/2021 hospitalized PAST SURGICAL HISTORY Procedure Laterality Date INSERTION OF IUD Liletta-removed PAST SURGICAL HISTORY OF Right arm/4 yo/fracture/ORIF FAMILY HISTORY Problem Relation Age of Onset Thyroid Cancer Mother Diabetes Father Diabetes Maternal Grandmother Breast Cancer No Family History Colon Cancer No Family History Social History Tobacco Use Smoking status: Never Smokeless tobacco: Never Vaping Use Vaping Use: Never used Substance Use Topics Alcohol use: Yes Comment: 1-2 drinks a krystal Drug use: Never Current Outpatient Medications Medication Sig acetaminophen (TYLENOL) 500 mg tablet Take 1 tablet by mouth every 6 hours as needed for pain or fever (specify). benzonatate (TESSALON PERLES) 100 mg capsule Take 1 capsule by mouth three times a day as needed for cough. fluticasone (FLONASE) 50 mcg/actuation nasal spray Use 1 [place] in each nostril daily at bedtime for 28 days. Use before lying down for bed. keTORolac (TORADOL) 10 mg tablet Take 1 tablet by mouth every 6 hours as needed. medroxyPROGESTERone (PROVERA) 10 mg tablet take 1 tablet by mouth every day omeprazole (PRILOSEC) 20 mg capsule Take 1 capsule by mouth once daily for 14 days. ondansetron orally disintegrating (ZOFRAN ODT) 4 mg disintegrating tablet Take 1 tablet by mouth every 8 hours as needed for nausea/vomiting. No current facility-administered medications for this visit. ALLERGIES Allergen Reactions Suprax [Cefixime] Rash REVIEW OF SYSTEMS: No other complaints or concerns addressed PHYSICAL EXAMINATION: VIDEO EXAM: (if completed, performed via video enabled technology) No exam performed ASSESSMENT/PLAN: 1. Abnormal uterine bleeding (AUB) - ICD9: 626.9, ICD10: N93.9 Continue provera 3 month follow up Discussed stress management She is trying to work on strategies such as imagery to reduce stress Cries at times Some support Esther Jordan MD There are no Patient Instructions on file for this visit. I spent a total of 25 minutes on the date of the service which included preparing to see the patient, [id number] patient care, and completing clinical documentation Esther Jordan MD [facility] 01-26-2023 History of Present illness Narrative VIRTUAL VISIT PROGRESS NOTE This is a virtual visit using [employer] Z[employer] Video Visit/no visual her camera would not work. It required patient-provider interaction for the medical decision making as documented below. I have communicated my name and active licensure. The patient's identity and physical location were verified at the time of this visit. Either the patient or their legal advertising representative has been informed of the risks and benefits of -- and alternatives to -- treatment through a remote evaluation and consents to proceed with the evaluation remotely. Victorina Blevins is a 22 year old female seen for: Follow up on abnormal uterine bleeding Last visit December 16, 2022 At that time she was taking megestrol and not feeling well with headaches She was concerned that the megestrol was causing these symptoms At that visit she was changed from megestrol to provera 10 mg a day She has had spotting that occurs approximately 2 days since starting the provera Her headaches are improved and she is feeling better HISTORY REVIEWED (electronic chart only): PAST MEDICAL HISTORY Diagnosis Date Dysmetabolic syndrome Infectious mononucleosis 06/2021 hospitalized PAST SURGICAL HISTORY Procedure Laterality Date INSERTION OF IUD Liletta-removed PAST SURGICAL HISTORY OF Right arm/4 yo/fracture/ORIF FAMILY HISTORY Problem Relation Age of Onset Thyroid Cancer Mother Diabetes Father Diabetes Maternal Grandmother Breast Cancer No Family History Colon Cancer No Family History Social History Tobacco Use Smoking status: Never Smokeless tobacco: Never Vaping Use Vaping Use: Never used Substance Use Topics Alcohol use: Yes Comment: 1-2 drinks a krystal Drug use: Never Current Outpatient Medications Medication Sig acetaminophen (TYLENOL) 500 mg tablet Take 1 tablet by mouth every 6 hours as needed for pain or fever (specify). benzonatate (TESSALON PERLES) 100 mg capsule Take 1 capsule by mouth three times a day as needed for cough. fluticasone (FLONASE) 50 mcg/actuation nasal spray Use 1 [place] in each nostril daily at bedtime for 28 days. Use before lying down for bed. keTORolac (TORADOL) 10 mg tablet Take 1 tablet by mouth every 6 hours as needed. medroxyPROGESTERone (PROVERA) 10 mg tablet take 1 tablet by mouth every day omeprazole (PRILOSEC) 20 mg capsule Take 1 capsule by mouth once daily for 14 days. ondansetron orally disintegrating (ZOFRAN ODT) 4 mg disintegrating tablet Take 1 tablet by mouth every 8 hours as needed for nausea/vomiting. No current facility-administered medications for this visit. ALLERGIES Allergen Reactions Suprax [Cefixime] Rash REVIEW OF SYSTEMS: No other complaints or concerns addressed PHYSICAL EXAMINATION: VIDEO EXAM: (if completed, performed via video enabled technology) No exam performed ASSESSMENT/PLAN: 1. Abnormal uterine bleeding (AUB) - ICD9: 626.9, ICD10: N93.9 Continue provera 3 month follow up Discussed stress management She is trying to work on strategies such as imagery to reduce stress Cries at times Some support Esther Jordan MD There are no Patient Instructions on file for this visit. I spent a total of 25 minutes on the date of the service which included preparing to see the patient, [id number]-[id number]-[id number] patient care, and completing clinical documentation Esther Jordan MD documented in this encounter [facility] 01-14-2023 Note HNO ID: [id number] Author: Jossie Garcia PA-C Service: ? Author Type: Physician Lock Operator Type: Progress Notes Filed: 01/14/2023 1:27 PM Note Text: This note was created using [employer]. Subjective Victorina Blevins is a 22 year old female. 22 y/o F with hx of metabolic syndrome and depression presents with sore throat, bilateral ear pain, nasal congestion and cough. Patient states that symptoms started yesterday. Cough is dry. Patient denies any fever, chest pain, shortness of breath, headache, dizziness or any other complaints. Patient had positive exposure to sick individuals. Patient did not take any kfqd-psg-kfunhmh medications for her symptoms. The history is provided by the patient. Sore Throat Associated symptoms include congestion, coughing and ear pain. Pertinent negatives include no diarrhea, headaches, neck pain, shortness of breath or vomiting. Cough Associated symptoms include ear pain and sore throat. Pertinent negatives include no chest pain, no chills, no headaches and no shortness of breath. Review of Systems Constitutional: Negative for chills, fatigue and fever. HENT: Positive for congestion, ear pain and sore throat. Respiratory: Positive for cough. Negative for shortness of breath. Cardiovascular: Negative for chest pain, palpitations and leg swelling. Gastrointestinal: Negative for diarrhea, nausea and vomiting. Musculoskeletal: Negative for back pain and neck pain. Skin: Negative for rash. Neurological: Negative for dizziness, weakness and headaches. All other systems reviewed and are negative. Objective BP 117/76 Pulse 87 Temp 37 ?C (98.6 ?F) LMP 12/15/2022 (Approximate) SpO2 99% Physical Exam Vitals and nursing note reviewed. Constitutional: General: She is not in acute distress. Appearance: Normal appearance. HENT: Head: Normocephalic. Right Ear: Tympanic membrane, ear canal and external ear normal. Left Ear: Tympanic membrane, ear canal and external ear normal. Nose: Congestion present. Mouth/Throat: Mouth: Mucous membranes are moist. Pharynx: No oropharyngeal exudate or posterior oropharyngeal erythema. Comments: Cobblestoning in the posterior pharynx. Eyes: Extraocular Movements: Extraocular movements intact. Conjunctiva/sclera: Conjunctivae normal. Pupils: Pupils are equal, round, and reactive to light. Cardiovascular: Rate and Rhythm: Normal rate and regular rhythm. Pulses: Normal pulses. Heart sounds: Normal heart sounds. No murmur heard. Pulmonary: Effort: Pulmonary effort is normal. No respiratory distress. Breath sounds: Normal breath sounds. No stridor. No wheezing, rhonchi or rales. Chest: Chest wall: No tenderness. Abdominal: General: Abdomen is flat. Palpations: Abdomen is soft. Tenderness: There is no abdominal tenderness. Musculoskeletal: General: Normal range of motion. Cervical back: Normal range of motion and neck supple. No tenderness. Right lower leg: No edema. Left lower leg: No edema. Lymphadenopathy: Cervical: No cervical adenopathy. Skin: General: Skin is warm and dry. Findings: No rash. Neurological: General: No focal deficit present. Mental Status: She is alert and oriented to person, place, and time. Gait: Gait normal. Assessment and Plan Patient presents with sore throat, cough and nasal congestion. Pt is non toxic appearing, alert, afebrile, no signs of respiratory distress. Speaking in clear/full sentences. No dry or cracked mucus membranes, not immunocompromised or immunosuppressed. No clinical evidence of strep pharyngitis. TMs normal bilaterally. No indication for chest x-ray at this time. Based on the history and PE, at this time the pt is stable for discharge home with oupt treatment and follow up within 2 days. COVID/flu/RSV swab obtained. Results pending upon discharge. [facility] 01-14-2023 History of Present illness Narrative This note was created using NoteWriter. Subjective Victorina Blevins is a 22 year old female. 22 y/o F with hx of metabolic syndrome and depression presents with sore throat, bilateral ear pain, nasal congestion and cough. Patient states that symptoms started yesterday. Cough is dry. Patient denies any fever, chest pain, shortness of breath, headache, dizziness or any other complaints. Patient had positive exposure to sick individuals. Patient did not take any iwpg-[id number] medications for her symptoms. The history is provided by the patient. Sore Throat Associated symptoms include congestion, coughing and ear pain. Pertinent negatives include no diarrhea, headaches, neck pain, shortness of breath or vomiting. Cough Associated symptoms include ear pain and sore throat. Pertinent negatives include no chest pain, no chills, no headaches and no shortness of breath. Review of Systems Constitutional: Negative for chills, fatigue and fever. HENT: Positive for congestion, ear pain and sore throat. Respiratory: Positive for cough. Negative for shortness of breath. Cardiovascular: Negative for chest pain, palpitations and leg swelling. Gastrointestinal: Negative for diarrhea, nausea and vomiting. Musculoskeletal: Negative for back pain and neck pain. Skin: Negative for rash. Neurological: Negative for dizziness, weakness and headaches. All other systems reviewed and are negative. Objective BP 117/76 Pulse 87 Temp 37 C (98.6 F) LMP 12/15/2022 (Approximate) SpO2 99% Physical Exam Vitals and nursing note reviewed. Constitutional: General: She is not in acute distress. Appearance: Normal appearance. HENT: Head: Normocephalic. Right Ear: Tympanic membrane, ear canal and external ear normal. Left Ear: Tympanic membrane, ear canal and external ear normal. Nose: Congestion present. Mouth/Throat: Mouth: Mucous membranes are moist. Pharynx: No oropharyngeal exudate or posterior oropharyngeal erythema. Comments: Cobblestoning in the posterior pharynx. Eyes: Extraocular Movements: Extraocular movements intact. Conjunctiva/sclera: Conjunctivae normal. Pupils: Pupils are equal, round, and reactive to light. Cardiovascular: Rate and Rhythm: Normal rate and regular rhythm. Pulses: Normal pulses. Heart sounds: Normal heart sounds. No murmur heard. Pulmonary: Effort: Pulmonary effort is normal. No respiratory distress. Breath sounds: Normal breath sounds. No stridor. No wheezing, rhonchi or rales. Chest: Chest wall: No tenderness. Abdominal: General: Abdomen is flat. Palpations: Abdomen is soft. Tenderness: There is no abdominal tenderness. Musculoskeletal: General: Normal range of motion. Cervical back: Normal range of motion and neck supple. No tenderness. Right lower leg: No edema. Left lower leg: No edema. Lymphadenopathy: Cervical: No cervical adenopathy. Skin: General: Skin is warm and dry. Findings: No rash. Neurological: General: No focal deficit present. Mental Status: She is alert and oriented to person, place, and time. Gait: Gait normal. Assessment and Plan Patient presents with sore throat, cough and nasal congestion. Pt is non toxic appearing, alert, afebrile, no signs of respiratory distress. Speaking in clear/full sentences. No dry or cracked mucus membranes, not immunocompromised or immunosuppressed. No clinical evidence of strep pharyngitis. TMs normal bilaterally. No indication for chest x-ray at this time. Based on the history and PE, at this time the pt is stable for discharge home with oupt treatment and follow up within 2 days. COVID/flu/RSV swab obtained. Results pending upon discharge. documented in this encounter [facility] 01-14-2023 Instructions Jossie Garcia PA-C - 01/14/2023 12:22 PM EDT RESPIRATORY INFECTION GENERAL INFORMATION: An upper respiratory tract infection, or cold, is a viral infection of the airway passages. It can be caused by any one of almost 200 different viruses. Common symptoms include a runny or stuffy nose, sneezing, watery eyes, sore throat, cough, and slight fever. Colds are contagious, especially during the first 3 or 4 days and cannot be cured by antibiotics. They are spread by coughs, sneezes, and direct contact, especially pnby-xp-[id number]. A respiratory tract infection usually clears up in a few days, but some people may be sick for a week or two. INSTRUCTIONS: 1. Be careful not to blow your nose too hard because this may cause a nosebleed. 2. Use a cool-mist humidifier (vaporizer) to increase air moisture. This will make it easier for you to breathe. Do not use hot steam. 3. Rest as much as possible and get plenty of sleep. 4. Wash your hands often, especially after you blow your nose. Cover your mouth and nose with a tissue when you sneeze or cough. 5. Drink plenty of clear fluids (8 glasses a day) such as water, fruit juice, tea, clear soups, and carbonated beverages. CONTACT YOUR DOCTOR IF : 1. Your fever lasts more than 3 days. 2. You have a sore throat that gets worse or you see white or yellow spots in your throat. 3. Your cough gets worse or lasts more than 10 days. 4. You develop a rash anywhere on your skin. 5. You have an earache or a headache. 6. You have thick greenish or yellowish discharge from your nose. RETURN IMMEDIATELY IF: 1. You cough up thick yellow, green, noel, or bloody sputum. 2. You have difficulty breathing, pain in your chest, or your skin or nails look noel or blue. 3. You have shaking chills or a temperature over 102 F (39 C). documented in this encounter [facility] 12-16-2022 Note HNO ID: [id number] Author: Esther Jordan MD Service: ? Author Type: Physician Type: Progress Notes Filed: 12/25/2022 10:31 PM Note Text: December 16, 2022 Victorina Blevins is a 22 year old White female who presents to the office today for follow up on AUB. She was last seen on 11/22 for AUB. - Began taking megestrol continuously with no improvement in vaginal bleeding. Still bleeding every night. - Also developed headaches and just not feeling well - Pelvic US was normal results discussed with the patient History reviewed and treatment options discussed. I answered all her questions. BP 106/80 (BP Site: Left Arm, BP Position: Sitting, BP Cuff Size: Regular Adult) Wt 215 lb (97.5 kg) LMP 11/15/2022 (Approximate) BMI 38.09 kg/m? General appearance: healthy, alert, cooperative, pleasant, in no acute distress, well dressed, well groomed ASSESSMENT/PLAN: 1. Abnormal uterine bleeding (AUB) - ICD9: 626.9, ICD10: N93.9 - Begin provera daily with continuous dosing - Follow up in 1 month Chinyere Zapata DO Family Medicine PGY-3 ATTENDING NOTE I reviewed the history with the resident and the patient. I was present with the resident for the exam, I repeated all pertinent portions of the physical exam. I agree with the plan. Esther Jordan MD [facility] 12-15-2022 Note HNO ID: [id number] Author: Dani Stuart MD Service: ? Author Type: Physician Type: Progress Notes Filed: 12/15/2022 4:08 PM Note Text: Study completed see imaging tab. Dani Stuart MD [facility] 12-15-2022 History of Present illness Narrative Study completed see imaging tab. Dani Stuart MD documented in this encounter [facility] 12-13-2022 Miscellaneous Notes See PE from 12/08 Miranda Contreras RN Pt still bleeding, complaint of migraines and fatigued. Pharmacy confirmed. Aster Bundy documented in this encounter [facility] 11-30-2022 Miscellaneous Notes Spoke with the pharmacy and they did not have the Rx, was advised that I could give a verbal Rx and then transferred to Rx line. Prescription info given from indicated Rx in Myze.. Will send pt [employer] message to let her know Rx was called in. Shahana Ascencio RN Patient says her pharmacy did not receive the script sent over for her megestrol . Patient is requesting the script be resent to her pharmacy. Earnestine Lamar documented in this encounter [facility] 11-29-2022 Miscellaneous Notes I called the patient. She is continuing to bleed. Difficult to hear patient-poor connection and dog barking. Advised to: Stop control pills Start megestrol Call the office and schedule pelvic ultrasound and follow-up appointment with me She stated she understood. Esther Jordan MD Pt complaint of still bleeding even after taking the Rx as prescribed, getting concerned going on 2 weeks now and this happened last month. Aster Bundy documented in this encounter [facility] 11-24-2022 Miscellaneous Notes Verified patient by name and date of . Patient is aware of doctor's recommendations.Patient verbalized understanding. Antonina Elias RN Left message to call the office. [facility] message sent also. Antonina Elias RN Continue the taper, take the pills with food, take one before bed. Follow up if no better by mid next week. Esther Jordan MD Dr. Jordan, She did do the 3 pills (not all at once) yesterday and they made her very sick to her stomach and very crampy. She states the bleeding is no better. She did take the first pill for today this morning. She hasn't vomited but feels like she could. Please advise. Thank you, Shahana Ascencio RN Patient says she was seen in the office on yesterday (11/23), says the Provider wanted her to up her dosage on her control pills, but it made her very sick. Patient has some questions. Earnestine Lamar documented in this encounter [facility] 11-22-2022 Note HNO ID: [id number] Author: Esther Jordan MD Service: ? Author Type: Physician Type: Progress Notes Filed: 12/04/2022 7:17 PM Note Text: November 22, 2022 Victorina Blevins is a 22 year old White female who presents to the office today for follow up on toradol and dysmenorrhea. She was last seen 11/15/2022 She has been bleeding for the past 7 days. Previous with irregular bleeding. She has currently started She is changing PCP because she moved to [place]. She in the week of her new pill pack of the new OCP. She was on a previous OCP- she had previous BTB on the OCP every few months BP 108/80 (BP Site: Left Arm, BP Position: Sitting, BP Cuff Size: Regular Adult) Wt 218 lb (98.9 kg) LMP 11/15/2022 (Approximate) BMI 38.62 kg/m? General appearance: healthy, alert, cooperative, pleasant, in no acute distress, well dressed, well groomed ASSESSMENT/PLAN: 1. Dysmenorrhea - ICD9: 625.3, ICD10: N94.6 (primary diagnosis) 2. Abnormal uterine bleeding (AUB) - ICD9: 626.9, ICD10: N93.9 Rx OCP taper with current pack and then into next pack without placebo pills and cycle on new OCP Follow up if bleeding not improved and appropriate Esther Jordan MD [facility] 11-22-2022 Instructions Esther Jordan MD - 11/22/2022 12:13 PM EDT Take your control pill 3 times today, 2 times tomorrow and return to once a day. Do not take the placebo pills this month. Start the new pack of pills instead of the placebo pills. Let me know if you have additional break through bleeding. Take care, Esther Jordan MD documented in this encounter [facility] 11-22-2022 History of Present illness Narrative November 22, 2022 Victorina Blevins is a 22 year old White female who presents to the office today for follow up on toradol and dysmenorrhea. She was last seen 11/15/2022 She has been bleeding for the past 7 days. Previous with irregular bleeding. She has currently started She is changing PCP because she moved to [place]. She in the week of her new pill pack of the new OCP. She was on a previous OCP- she had previous BTB on the OCP every few months BP 108/80 (BP Site: Left Arm, BP Position: Sitting, BP Cuff Size: Regular Adult) Wt 218 lb (98.9 kg) LMP 11/15/2022 (Approximate) BMI 38.62 kg/m General appearance: healthy, alert, cooperative, pleasant, in no acute distress, well dressed, well groomed ASSESSMENT/PLAN: 1. Dysmenorrhea - ICD9: 625.3, ICD10: N94.6 (primary diagnosis) 2. Abnormal uterine bleeding (AUB) - ICD9: 626.9, ICD10: N93.9 Rx OCP taper with current pack and then into next pack without placebo pills and cycle on new OCP Follow up if bleeding not improved and appropriate Esther Jordan MD documented in this encounter [facility] 11-22-2022 Nurse Note Motor Inspection Mechanic offered: Patient declines. documented in this encounter [facility] 11-22-2022 Miscellaneous Notes Spoke with pt, she states that she woke up with a lot of blood this morning. As for the tampon, she puts one in every night and can't remember taking one out the other morning and has subsequently inserted more. She is unsure if there is one in now. Pt offered appt today and she accepts. Shahana Ascencio RN Pt reported 7 days of continuous bleeding, flow is increasing. Pharmacy confirmed. Aster Bundy Pt called back at 8:55 a.m. to report a tampon may be stuck in her vagina. Aster Bundy documented in this encounter [facility] 11-16-2022 Miscellaneous Notes Completed. Earnestine Lamar The following approved medication requests have been transmitted electronically. Requested Prescriptions Signed Prescriptions Disp Refills Desogestrel-Ethinyl Estradiol (ISIBLOOM) 0.15-0.03 mg per tablet 84 tablet 0 Sig: Take 1 tablet by mouth once daily. Authorizing Provider: ESTHER JORDAN Follow up as scheduled Esther Jordan MD Can you send in Isibloom for her? She did schedule a f/u appt (virtual) for 11-15-22. Thank you, Shahana Ascencio RN Patient is requesting a refill on the b/c (Isibloom). Earnestine Lamar Previous phone message reviewed. She is requesting a refill on her OCP, there is no OCP currently on her med list and her last note recommended she follow up. Please verify what OCP she is taking. Please schedule her a follow up appointment. Thank you, Esther Jordan MD documented in this encounter [facility] 11-16-2022 Miscellaneous Notes Left message for patient to call office to schedule follow-up appointment. Earnestine Lamar Please call her and schedule her an in person visit in 3 months. Thank you, Esther Jordan MD documented in this encounter [facility] 11-15-2022 Note HNO ID: [id number] Author: Esther Jordan MD Service: ? Author Type: Physician Type: Progress Notes Filed: 11/15/2022 5:54 PM Note Text: VIRTUAL VISIT PROGRESS NOTE This is a virtual visit using Audio only. It required patient-provider interaction for the medical decision making as documented below. She was unable to sign onto the video platform. I have communicated my name and active licensure. The patient's identity and physical location were verified at the time of this visit. Either the patient or their legal advertising representative has been informed of the risks and benefits of -- and alternatives to -- treatment through a remote evaluation and consents to proceed with the evaluation remotely. Victorina Blevins is a 22 year old female seen for abnormal periods. She had a long heavy period last month. She called and Rx norethindrone 5 mg po bid x 5 days with decreased bleeding, but did not stop. Sexually active, no new partner. No abnormal vaginal discharge. No changes in medications She has a small amount of intermittent nipple discharge, no blood Component Latest Ref Rng AND Units 06/02/2022 TSH 0.270 - 4.200 mIU/L 2.340 Component Latest Ref Rng AND Units 06/02/2022 Hemoglobin A1C 4.3 - 5.6 % 4.6 Estimated Average Glucose mg/dL 85 Normal SIS May 2022 She has the history of same Has occurred with multiple Combined OCP formulations She is currently on isibloom (desogestrel/EE) Previously on enskyce (desogestrel/EE) In June 2019 Rx for ASHLYNA 0.15 MG-30 MCG (84)/10 MCG(7) TABLETS,3 MONTH DOSE PACK In 2019 she was on Drospirenone/EE She has been on OCP taking prolonged menses She had an IUD (Lyletta) and had prolonged bleeding and pain, she recalls taking medication to manage the bleeding History of irregular menses She has taken metformin in the past, she discontinued due to side effects. HISTORY REVIEWED (electronic chart updated): PAST MEDICAL HISTORY Diagnosis Date Dysmetabolic syndrome Infectious mononucleosis 06/2021 hospitalized PAST SURGICAL HISTORY Procedure Laterality Date INSERTION OF IUD Liletta-removed PAST SURGICAL HISTORY OF Right arm/4 yo/fracture/ORIF FAMILY HISTORY Problem Relation Age of Onset Thyroid Cancer Mother Diabetes Father Diabetes Maternal Grandmother Breast Cancer No Family History Colon Cancer No Family History Social History Tobacco Use Smoking status: Never Smokeless tobacco: Never Vaping Use Vaping Use: Never used Substance Use Topics Alcohol use: Yes Comment: 1-2 drinks a krystal Drug use: Never Current Outpatient Medications Medication Sig Desogestrel-Ethinyl Estradiol (ISIBLOOM) 0.15-0.03 mg per tablet Take 1 tablet by mouth once daily. omeprazole (PRILOSEC) 20 mg capsule Take 1 capsule by mouth once daily for 14 days. acetaminophen (TYLENOL) 500 mg tablet Take 1 tablet by mouth every 6 hours as needed for pain or fever (specify). ondansetron orally disintegrating (ZOFRAN ODT) 4 mg disintegrating tablet Take 1 tablet by mouth every 8 hours as needed for nausea/vomiting. No current facility-administered medications for this visit. ALLERGIES Allergen Reactions Suprax [Cefixime] Rash REVIEW OF SYSTEMS: No other complaints or concerns PHYSICAL EXAMINATION: VIDEO EXAM: (if completed, performed via video enabled technology) No exam performed, patient unable to connect via video platform ASSESSMENT/PLAN: 1. Abnormal uterine bleeding (AUB) - ICD9: 626.9, ICD10: N93.9 (primary diagnosis) Discussed options for management Will change OCP 2. Galactorrhea - ICD9: 611.6, ICD10: N64.3 - PROLACTIN BLD 3. Dysmenorrhea - ICD9: 625.3, ICD10: N94.6 Rx toradol Esther Jordan MD There are no Patient Instructions on file for this visit. I spent a total of 30 minutes on the date of the service which included preparing to see the patient, [id number] patient care, and completing clinical documentation Esthre Jordan MD [facility] 11-15-2022 History of Present illness Narrative VIRTUAL VISIT PROGRESS NOTE This is a virtual visit using Audio only. It required patient-provider interaction for the medical decision making as documented below. She was unable to sign onto the video platform. I have communicated my name and active licensure. The patient's identity and physical location were verified at the time of this visit. Either the patient or their legal advertising representative has been informed of the risks and benefits of -- and alternatives to -- treatment through a remote evaluation and consents to proceed with the evaluation remotely. Victorina Blevins is a 22 year old female seen for abnormal periods. She had a long heavy period last month. She called and Rx norethindrone 5 mg po bid x 5 days with decreased bleeding, but did not stop. Sexually active, no new partner. No abnormal vaginal discharge. No changes in medications She has a small amount of intermittent nipple discharge, no blood Component Latest Ref Rng & Units 06/02/2022 TSH 0.270 - 4.200 mIU/L 2.340 Component Latest Ref Rng & Units 06/02/2022 Hemoglobin A1C 4.3 - 5.6 % 4.6 Estimated Average Glucose mg/dL 85 Normal SIS May 2022 She has the history of same Has occurred with multiple Combined OCP formulations She is currently on isibloom (desogestrel/EE) Previously on enskyce (desogestrel/EE) In June 2019 Rx for ASHLYNA 0.15 MG-30 MCG (84)/10 MCG(7) TABLETS,3 MONTH DOSE PACK In 2019 she was on Drospirenone/EE She has been on OCP taking prolonged menses She had an IUD (Lyletta) and had prolonged bleeding and pain, she recalls taking medication to manage the bleeding History of irregular menses She has taken metformin in the past, she discontinued due to side effects. HISTORY REVIEWED (electronic chart updated): PAST MEDICAL HISTORY Diagnosis Date Dysmetabolic syndrome Infectious mononucleosis 06/2021 hospitalized PAST SURGICAL HISTORY Procedure Laterality Date INSERTION OF IUD Liletta-removed PAST SURGICAL HISTORY OF Right arm/4 yo/fracture/ORIF FAMILY HISTORY Problem Relation Age of Onset Thyroid Cancer Mother Diabetes Father Diabetes Maternal Grandmother Breast Cancer No Family History Colon Cancer No Family History Social History Tobacco Use Smoking status: Never Smokeless tobacco: Never Vaping Use Vaping Use: Never used Substance Use Topics Alcohol use: Yes Comment: 1-2 drinks a krystal Drug use: Never Current Outpatient Medications Medication Sig Desogestrel-Ethinyl Estradiol (ISIBLOOM) 0.15-0.03 mg per tablet Take 1 tablet by mouth once daily. omeprazole (PRILOSEC) 20 mg capsule Take 1 capsule by mouth once daily for 14 days. acetaminophen (TYLENOL) 500 mg tablet Take 1 tablet by mouth every 6 hours as needed for pain or fever (specify). ondansetron orally disintegrating (ZOFRAN ODT) 4 mg disintegrating tablet Take 1 tablet by mouth every 8 hours as needed for nausea/vomiting. No current facility-administered medications for this visit. ALLERGIES Allergen Reactions Suprax [Cefixime] Rash REVIEW OF SYSTEMS: No other complaints or concerns PHYSICAL EXAMINATION: VIDEO EXAM: (if completed, performed via video enabled technology) No exam performed, patient unable to connect via video platform ASSESSMENT/PLAN: 1. Abnormal uterine bleeding (AUB) - ICD9: 626.9, ICD10: N93.9 (primary diagnosis) Discussed options for management Will change OCP 2. Galactorrhea - ICD9: 611.6, ICD10: N64.3 - PROLACTIN BLD 3. Dysmenorrhea - ICD9: 625.3, ICD10: N94.6 Rx toradol Esther Jordan MD There are no Patient Instructions on file for this visit. I spent a total of 30 minutes on the date of the service which included preparing to see the patient, [id number] patient care, and completing clinical documentation Esther Jordan MD documented in this encounter [facility] 07-14-2023 Miscellaneous Notes That is fine. Thank you, Esther Jordan MD Dr. Jordan, Pt took the Aygestin and is still bleeding but it has improved. It is a light flow but she does randomly get some clots. She has a virtual follow up with you 11-15-22. She will continue to monitor until that follow up. If you want her to do anything else, call her or send her a [employer] message. Thank you, Shahana Ascencio RN Pt. Completed Rx but is till bleeding, wanted Dr to know. Pharmacy confirmed. Aster Bundy documented in this encounter [facility] 10-21-2022 Miscellaneous Notes Pt advised and has a virtual appts scheduled. Shahana Ascencio RN The following approved medication requests have been transmitted electronically. Requested Prescriptions Signed Prescriptions Disp Refills norethindrone (AYGESTIN) 5 mg tablet 10 tablet 0 Sig: Take 1 tablet by mouth twice daily for 5 days. Authorizing Provider: ESTHER JORDAN Please schedule her a follow up appointment. Thank you Esther Jordan MD Dr. Jordan, I spoke with her and she is stating that her period is on day 9 and it goes from a regular flow to heavy. States she changed her tampon 4 times during the night last night. She is also having some clotting. She is still taking her bcp's but she doesn't think they are helping her much with her periods. She has taken Aygestin previously (06/09) and is asking for that again. She is also wanting an appt to discuss management moving forward, call transferred to front desk attendant to set her up with a virtual. Order pended for aygestin if appropriate. Thank you, Shahana Ascencio RN Patient says she has been on her menses for 8-9 days and it does not look like it is stopping. Patient says it has happened once before and she was given some medication to help stop it Earnestine Lamar documented in this encounter [facility] 10-19-2022 Miscellaneous Notes Spoke with pt. She states that her period is a few days late. It started out as a normal flow and has tapered off. She is currently on ocp's but also sexually active. Advised to take a home test to rule that out. Advised to try the BRAT diet, can do bria pedro or bria tablets. Advised to go to the ED for hydration if unable to tolerate fluids. She was seen in the ED 09-18-2022 with similar sx and referred to GI, has not made appt. Advised to make appt with Dr. Jordan or pcp and definitely GI for f/u. She verbalizes understanding. Shahana Ascencio RN Left msg for pt to call the office back. Shahana Ascencio RN Patient says when she started her menses late this month, she has been really nausea and vomiting. Patient says she is still on her menses, says she has never been like this before. Earnestine Lamar documented in this encounter [facility] Work Phone: [phone] 142-328606-04-2023 NoteHNO ID: [id number] Author: Domi Perez APRN.[facility] Service: ? Author Type: Nurse Practitioner Type: Progress Notes Filed: 09/18/2022 4:43 PM Note Text: Patient presents with: Abdominal Pain: Epigastric pain with nausea x 3 days The history is provided by the patient. Abdominal Pain This is a new problem. Episode onset: x 4 days. The problem occurs constantly. The problem has not changed since onset.The pain is associated with eating (worsens after eating). The pain is located in the epigastric region and LUQ (radiates to right shoulder pain and lower back pain). The quality of the pain is sharp and dull (sharp/stabbing sensation after eating). Pain scale: pain rated 5-10/10. Pain severity now: moderate to severe. Associated symptoms include anorexia, flatus, nausea, vomiting (1x episode today) and headaches. Pertinent negatives include fever, belching, diarrhea, hematochezia, constipation, dysuria and frequency. The symptoms are aggravated by eating and deep breathing. Relieved by: Tums - No improvement. Past workup includes GI consult and CT scan. Past workup does not include surgery. Her past medical history does not include PUD, ulcerative colitis, Crohn's disease or irritable bowel syndrome. Additional: - On 09/15/2022, patient was seen at [facility] Emergency Room for chest pain, palpitations, dizziness, and lightheaded. Review of Systems Constitutional: Positive for appetite change (decreased), chills, diaphoresis and fatigue. Negative for fever. Eyes: Positive for visual disturbance. Respiratory: Positive for shortness of breath (x yesterday; resolved). Cardiovascular: Positive for chest pain (x yesterday; resolved) and palpitations (x yesterday; resolved). Gastrointestinal: Positive for abdominal pain, anorexia, flatus, nausea and vomiting (1x episode today). Negative for constipation, diarrhea and hematochezia. Genitourinary: Negative for dysuria and frequency. Musculoskeletal: Positive for back pain. Right shoulder pain and lower back pain x 3 days Neurological: Positive for dizziness, weakness, light-headedness, numbness (N/T sensation to bilatera upper and lower extremities) and headaches. Negative for facial asymmetry and speech difficulty. Psychiatric/Behavioral: Negative for confusion. ALLERGIES Allergen Reactions Suprax [Cefixime] Rash PAST MEDICAL HISTORY Diagnosis Date Dysmetabolic syndrome Infectious mononucleosis 06/2021 hospitalized Current Outpatient Medications on File Prior to Visit Medication Sig acetaminophen (TYLENOL) 500 mg tablet Take 1 tablet by mouth every 6 hours as needed for pain or fever (specify). norethindrone (AYGESTIN) 5 mg tablet Take 1 tablet by mouth twice daily for 5 days. Desogestrel-Ethinyl Estradiol (ENSKYCE) 0.15-0.03 mg per tablet Take 1 tablet by mouth once daily. Take placebo pills every third pack of pills ondansetron orally disintegrating (ZOFRAN ODT) 4 mg disintegrating tablet Take 1 tablet by mouth every 8 hours as needed for nausea/vomiting. No current facility-administered medications on file prior to visit. PAST SURGICAL HISTORY Procedure Laterality Date INSERTION OF IUD Liletta-removed PAST SURGICAL HISTORY OF Right arm/4 yo/fracture/ORIF FAMILY HISTORY Problem Relation Age of Onset Thyroid Cancer Mother Diabetes Father Diabetes Maternal Grandmother Breast Cancer No Family History Colon Cancer No Family History Tobacco Use: Never Alcohol Use: Yes (1-2 drinks a krystal) Drug Use: Never BP 122/86 Pulse 87 Temp 36.9 ?C (98.5 ?F) (Temporal Artery) Resp 15 LMP 09/12/2022 (Approximate) SpO2 98% Physical Exam Vitals reviewed. Constitutional: General: She is awake. She is not in acute distress. HENT: Mouth/Throat: Lips: [place]. Mouth: Mucous membranes are dry. Pharynx: Oropharynx is clear. Uvula midline. Eyes: Conjunctiva/sclera: Conjunctivae normal. Pupils: Pupils are equal, round, and reactive to light. Cardiovascular: Rate and Rhythm: Normal rate and regular rhythm. Pulses: Radial pulses are 2+ on the right side and 2+ on the left side. Pulmonary: Effort: Pulmonary effort is normal. No accessory muscle usage or respiratory distress. Breath sounds: Normal breath sounds. Abdominal: General: Bowel sounds are normal. Palpations: Abdomen is soft. Tenderness: There is abdominal tenderness in the epigastric area and left upper quadrant. There is no right CVA tenderness or left CVA tenderness. Skin: Comments: Bilateral sweaty palms Neurological: Mental Status: She is alert and oriented to person, place, and time. Psychiatric: Behavior: Behavior is cooperative. (R10.9) Abdominal pain, unspecified abdominal location (primary encounter diagnosis) (R42) Dizziness (R11.0) Nausea (H53.9) Visual disturbance Office Visit on 09/18/22 UA DIP, URINE (POC) HCG QUAL UR B/O GLUCOSE, BLOOD (POC) URINE CULTURE ASSESSMENT/PLAN: 1. Abdominal pain, uns (more content not included)...[facility] 09-18-2022 History of Present illness Narrative* Domi Perez APRN.[employer] - 09/18/2022 2:41 PM EDT Patient presents with: Abdominal Pain: Epigastric pain with nausea x 3 days The history is provided by the patient. Abdominal Pain This is a new problem. Episode onset: x 4 days. The problem occurs constantly. The problem has not changed since onset.The pain is associated with eating (worsens after eating). The pain is located in the epigastric region and LUQ (radiates to right shoulder pain and lower back pain). The quality of the pain is sharp and dull (sharp/stabbing sensation after eating). Pain scale: pain rated 5-10/10. Pain severity now: moderate to severe. Associated symptoms include anorexia, flatus, nausea, vomiting (1x episode today) and headaches. Pertinent negatives include fever, belching, diarrhea, hematochezia, constipation, dysuria and frequency. The symptoms are aggravated by eating and deep breathing. Relieved by: Tums - No improvement. Past workup includes GI consult and CT scan. Past workup does not include surgery. Her past medical history does not include PUD, ulcerative colitis, Crohn's disease or irritable bowel syndrome. Additional: - On 09/15/2022, patient was seen at [facility] Emergency Room for chest pain, palpitations, dizziness, and lightheaded. Review of Systems Constitutional: Positive for appetite change (decreased), chills, diaphoresis and fatigue. Negativefor fever. Eyes: Positive for visual disturbance. Respiratory: Positive for shortness of breath (x yesterday; resolved). Cardiovascular: Positive for chest pain (x yesterday; resolved) and palpitations (x yesterday; resolved). Gastrointestinal: Positive for abdominal pain, anorexia, flatus, nausea and vomiting (1x episode today). Negative for constipation, diarrhea and hematochezia. Genitourinary: Negative for dysuria and frequency. Musculoskeletal: Positive for back pain. Right shoulder pain and lower back pain x 3 days Neurological: Positive for dizziness, weakness, light-headedness, numbness (N/T sensation to bilatera upper and lower extremities) and headaches. Negative for facial asymmetry and speech difficulty. Psychiatric/Behavioral: Negative for confusion. ALLERGIES Allergen Reactions Suprax [Cefixime] Rash PAST MEDICAL HISTORY Diagnosis Date Dysmetabolic syndrome Infectious mononucleosis 06/2021 hospitalized Current Outpatient Medications on File Prior to Visit Medication Sig acetaminophen (TYLENOL) 500 mg tablet Take 1 tablet by mouth every 6 hours as needed for pain or fever (specify). norethindrone (AYGESTIN) 5 mg tablet Take 1 tablet by mouth twice daily for 5 days. Desogestrel-Ethinyl Estradiol (ENSKYCE) 0.15-0.03 mg per tablet Take 1 tablet by mouth once daily. Take placebo pills every third pack of pills ondansetron orally disintegrating (ZOFRAN ODT) 4 mg disintegrating tablet Take 1 tablet by mouth every 8 hours as needed for nausea/vomiting. No current facility-administered medications on file prior to visit. PAST SURGICAL HISTORY Procedure Laterality Date INSERTION OF IUD Liletta-removed PAST SURGICAL HISTORY OF Right arm/4 yo/fracture/ORIF FAMILY HISTORY Problem Relation Age of Onset Thyroid Cancer Mother Diabetes Father Diabetes Maternal Grandmother Breast Cancer No Family History Colon Cancer No Family History Tobacco Use: Never Alcohol Use: Yes (1-2 drinks a krystal) Drug Use: Never BP 122/86 Pulse 87 Temp 36.9 C (98.5 F) (Temporal Artery) Resp 15 LMP 09/12/2022 (Approximate) [id number] Physical Exam Vitals reviewed. Constitutional: General: She is awake. She is not in acute distress. HENT: Mouth/Throat: Lips: [place]. Mouth: Mucous membranes are dry. Pharynx: Oropharynx is clear. Uvula midline. Eyes: Conjunctiva/sclera: Conjunctivae normal. Pupils: Pupils are equal, round, and reactive to light. Cardiovascular: Rate and Rhythm: Normal rate and regular rhythm. Pulses: Radial pulses are 2+ on the right side and 2+ on the left side. Pulmonary: Effort: Pulmonary effort is normal. No accessory muscle usage or respiratory distress. Breath sounds: Normal breath sounds. Abdominal: General: Bowel sounds are normal. Palpations: Abdomen is soft. Tenderness: There is abdominal tenderness in the epigastric area and left upper quadrant. There is no right CVA tenderness or left CVA tenderness. Skin: Comments: Bilateral sweaty palms Neurological: Mental Status: She is alert and oriented to person, place, and time. Psychiatric: Behavior: Behavior is cooperative. (R10.9) Abdominal pain, unspecified abdominal location (primary encounter diagnosis) (R42) Dizziness (R11.0) Nausea (H53.9) Visual disturbance Office Visit on 09/18/22 UA DIP, URINE (POC) HCG QUAL UR B/O GLUCOSE, BLOOD (POC) URINE CULTURE ASSESSMENT/PLAN: 1. Abdominal pain, unspecified abdominal location - ICD9: 789.00, ICD10: R10.9 (primary diagnosis) - UA positive for trace hematuria - Send urine for culture (will call with results and alter plan of care if indicated) - Negative urine - In office blood sugar was 86 Discussed with patient concern r/t epigastric pain with N/V, sweats, right shoulder pain, back pain, dizziness, lightheaded, [place], fatigue, N/T sensation in extremities, and spots/floaters in visual field. Patient also reports chest pain with palpitations and SOB x yesterday (resolved). It is my medical opinion that your condition requires further evaluation at a higher level of care than we are able to offer in an [facility] environment. Therefore, I am referring patient to [facility] Emergency Room for further evaluation, treatment, and/or monitoring. Patient declines EMS for safe transport to Emergency Room (risks and complications reviewed). Report called and given to JOEY Lopez, at 3:06 pm. Upon leaving [facility], patient alert and oriented x 4 with boyfriend as sprinkler driver. All questions and concerns addressed. Return to clinic as needed. Patient agrees with plan of care and verbalizes understanding. 2. Dizziness - ICD9: 780.4, ICD10: R42 3. Nausea - ICD9: 787.02, ICD10: R11.0 4. Visual disturbance - ICD9: 368.9, ICD10: H53.9 5. Myalgia - ICD9: 729.1, ICD10: M79.10 6. Fatigue, unspecified type - ICD9: 780.79, ICD10: R53.83 Domi Perez APRN.SHERRIE documented in this encounterLouis Stokes Cleveland [facility] Center06-01-2023 Miscellaneous Notes* Telephone Encounter - Milady Cortez RN - 09/15/2022 3:50 PM EDT spoke with pt. states yesterday she bled through 3 super super tampons in 1 hr. she went to bed andwith super plus tampon on and slept through the night. today she c/o dizziness, cramping and bleeding through super plus tampon every 1-2 hrs w/lots of clots. advised pt to go the the ED if the sx and bleeding return. pt scheduled to be seen in office on Monday. Milady Cortez RN * Telephone Encounter - Milady Cortez RN - 09/15/2022 3:33 PM EDT called pt. no answer. LM to call the office. Milady Cortez RN * Telephone Encounter - Earnestine Lamar - 09/15/2022 2:34 PM EDT Patient has some concerns about her menses. Earnestine Lamar documented in this encounterLouis Stokes Cleveland Va Medical Center03-30-2023 NoteHNO ID: [id number] Author: Nisha Anand PA-C Service: ? Author Type: Physician Lock Operator Type: Progress Notes Filed: 07/14/2022 4:07 PM Note Text: Past Medical History (PMHx), Medications, AND Allergies were reviewed. Subjective Victorina Blevins is a 22 year old year old female. Chief Complaint Patient presents with: vomiting, cough, h/a . History of Present Illness Patient presents to the [facility] with the chief complaint of fatigue, chills, diffuse crampy abdominal pain, nausea, and vomiting. Patient states she developed the above symptoms yesterday, 07/13/2022. Patient states that she had 4 episodes of non-bloody emesis. Patient states that she has not taken anything to aid in alleviating any of her symptoms. Patient denies any other associated symptoms. Patient came in to the [facility] today to be further evaluated. Patient denies any new foods, new medications, sick contacts, or recent travel. Patient denies any recent abdominal surgeries. Patient denies any fever, sweats, cough, shortness of breath, chest pain, anorexia, diarrhea, constipation, blood in the stool, dysuria, urgency, frequency, hematuria, flank pain, vaginal pain, vaginal bleeding, vaginal discharge, myalgias, arthralgias, weakness, dizziness, or lightheadedness. Patient denies any other pain at this time. Review of Systems Review of Systems Constitutional: Positive for chills and fatigue. Negative for appetite change, diaphoresis and fever. Respiratory: Negative for cough and shortness of breath. Cardiovascular: Negative for chest pain. Gastrointestinal: Positive for abdominal pain, nausea and vomiting. Negative for blood in stool, constipation and diarrhea. Genitourinary: Negative for dysuria, flank pain, frequency, hematuria, urgency, vaginal bleeding, vaginal discharge and vaginal pain. Musculoskeletal: Negative for arthralgias and myalgias. Neurological: Negative for dizziness, weakness and light-headedness. Objective BP 114/79 Pulse 92 Temp 36.9 ?C (98.4 ?F) LMP 06/13/2022 (Approximate) SpO2 98% Physical Exam Vitals reviewed. Constitutional: Appearance: Normal appearance. She is obese. HENT: Head: Normocephalic and atraumatic. Cardiovascular: Rate and Rhythm: Normal rate and regular rhythm. Pulses: Normal pulses. Heart sounds: Normal heart sounds. No murmur heard. No friction rub. No gallop. Pulmonary: Effort: Pulmonary effort is normal. No respiratory distress. Breath sounds: Normal breath sounds. No stridor. No wheezing, rhonchi or rales. Abdominal: General: Bowel sounds are normal. There is no distension. Palpations: Abdomen is soft. Tenderness: There is abdominal tenderness (diffuse). There is no right CVA tenderness, left CVA tenderness or guarding. Neurological: General: No focal deficit present. Mental Status: She is alert and oriented to person, place, and time. Mental status is at baseline. Psychiatric: Mood and Affect: Mood normal. Behavior: Behavior normal. Thought Content: Thought content normal. Judgment: Judgment normal. Labs Estimated Creatinine Clearance: 131.9 mL/min (based on SCr of 0.7 mg/dL). Assessment AND Plan 1. Gastroenteritis - ICD9: 558.9, ICD10: K52.9 - Suspect gastroenteritis. - Discussed supportive care measures to aid in alleviating patient's symptoms. - Discussed maintaining proper hydration with fluids, juice, soda to aid in replenishing fluids, electrolytes, and sugar. - Prescribed acetaminophen (Tylenol) for as needed pain relief. - Prescribed dicyclomine (Bentyl) to aid in abdominal cramping relief. - Prescribed ondansetron (Zofran) to aid in nausea and vomiting relief. - Attached additional information about gastroenteritis to the patient's discharge summary. - ACETAMINOPHEN 500 MG TABLET - DICYCLOMINE 20 MG TABLET - ONDANSETRON 4 MG DISINTEGRATING TABLET RAYNA [facility]03-30-2023 History of Present illness Narrative* Nisha Anand PA-C - 07/14/2022 3:36 PM EDT Past Medical History (PMHx), Medications, & Allergies were reviewed. Subjective Victorina Blevins is a 22 year old year old female. Chief Complaint Patient presents with: vomiting, cough, h/a . History of Present Illness Patient presents to the [facility] with the chief complaint of fatigue, chills, diffuse crampy abdominal pain, nausea, and vomiting. Patient states she developed the above symptoms yesterday, 07/13/2022. Patient states that she had 4 episodes of non-bloody emesis. Patient states that she has not taken anything to aid in alleviating any of her symptoms. Patient denies any other associated symptoms. Patient came in to the [facility] today to be further evaluated. Patient denies any new foods, new medications, sick contacts, or recent travel. Patient denies any recent abdominal surgeries. Patient denies any fever, sweats, cough, shortness of breath, chest pain, anorexia, diarrhea, constipation, blood in the stool, dysuria, urgency, frequency, hematuria, flank pain, vaginal pain, vaginal bleeding, vaginal discharge, myalgias, arthralgias, weakness, dizziness, or lightheadedness. Patient denies any other pain at this time. Review of Systems Review of Systems Constitutional: Positive for chills and fatigue. Negative for appetite change, diaphoresis and fever. Respiratory: Negative for cough and shortness of breath. Cardiovascular: Negative for chest pain. Gastrointestinal: Positive for abdominal pain, nausea and vomiting. Negative for blood in stool, constipation and diarrhea. Genitourinary: Negative for dysuria, flank pain, frequency, hematuria, urgency, vaginal bleeding, vaginal discharge and vaginal pain. Musculoskeletal: Negative for arthralgias and myalgias. Neurological: Negative for dizziness, weakness and light-headedness. Objective BP 114/79 Pulse 92 Temp 36.9 C (98.4 F) LMP 06/13/2022 (Approximate) SpO2 98% Physical Exam Vitals reviewed. Constitutional: Appearance: Normal appearance. She is obese. HENT: Head: Normocephalic and atraumatic. Cardiovascular: Rate and Rhythm: Normal rate and regular rhythm. Pulses: Normal pulses. Heart sounds: Normal heart sounds. No murmur heard. No friction rub. No gallop. Pulmonary: Effort: Pulmonary effort is normal. No respiratory distress. Breath sounds: Normal breath sounds. No stridor. No wheezing, rhonchi or rales. Abdominal: General: Bowel sounds are normal. There is no distension. Palpations: Abdomen is soft. Tenderness: There is abdominal tenderness (diffuse). There is no right CVA tenderness, left CVA tenderness or guarding. Neurological: General: No focal deficit present. Mental Status: She is alert and oriented to person, place, and time. Mental status is at baseline. Psychiatric: Mood and Affect: Mood normal. Behavior: Behavior normal. Thought Content: Thought content normal. Judgment: Judgment normal. Labs Estimated Creatinine Clearance: 131.9 mL/min (based on SCr of 0.7 mg/dL). Assessment & Plan 1. Gastroenteritis - ICD9: 558.9, ICD10: K52.9 - Suspect gastroenteritis. - Discussed supportive care measures to aid in alleviating patient's symptoms. - Discussed maintaining proper hydration with fluids, juice, soda to aid in replenishing fluids, electrolytes, and sugar. - Prescribed acetaminophen (Tylenol) for as needed pain relief. - Prescribed dicyclomine (Bentyl) to aid in abdominal cramping relief. - Prescribed ondansetron (Zofran) to aid in nausea and vomiting relief. - Attached additional information about gastroenteritis to the patient's discharge summary. - ACETAMINOPHEN 500 MG TABLET - DICYCLOMINE 20 MG TABLET - ONDANSETRON 4 MG DISINTEGRATING TABLET Nisha Anand PA-C documented in this encounterLouis Stokes [facility]03-30-2023 Instructions* Patient Instructions* Nisha Anand PA-C - 07/14/2022 3:26 PM EDT GASTROENTERITIS DESCRIPTION: Irritation and infection of the digestive tract that can often cause sudden and sometimes violent upsets. Gastroenteritis may be confused with spastic colitis. It affects all ages but is most severe in young children (1 to 5 years) and adults over 60. FREQUENT SIGNS AND SYMPTOMS: -Nausea that sometimes causes vomiting. -Diarrhea that ranges from 2 or 3 loose stools to many watery stools. -Abdominal cramps, pain or tenderness. -Appetite loss. -Fever. -Weakness. CAUSES: -A variety of viruses, bacteria or parasites that have contaminated food or water. -Food poisoning. -Use of harsh laxatives. -Change in bacteria that normally live in the intestinal tract. -Chemical toxins in certain plants, seafood, or contaminated food. -Heavy metal poisoning. RISK INCREASES WITH: -Adults over 60. -Newborns and infants. -Improper diet. -Excess alcohol consumption. -Use of drugs, such as aspirin, nonsteroidal anti-inflammatories, antibiotics, laxatives, cortisoneor caffeine. -Travel to foreign countries. PREVENTIVE MEASURES: -Wash hands frequently if you or someone around you has gastroenteritis. -Avoid as many causes and risks mentioned above as possible. -Take care with food preparation. TREATMENT: GENERAL MEASURES: -Diagnostic tests may include laboratory studies of blood and stool. -Treatment is usually supportive (rest, fluids). -Mild cases are usually treated at home. -It is not necessary to isolate persons with gastroenteritis. -Hospitalization, if dehydration is severe. MEDICATIONS: -Medicine is usually not necessary. If gastroenteritis is severe or prolonged, you may be prescribed antinausea and antidiarrheal medication. -Certain bacteria and parasites may require specific antibiotic treatment. ACTIVITY: Rest in bed until nausea, vomiting, diarrhea and fever are gone. DIET: -Suck ice chips or drink small amounts of clear fluids frequently. -After diarrhea and vomiting stop, drink small amounts of clear liquids, such as tea, flat gingerale or lemon-moapa soda, broth and gelatin. -If liquids are tolerated for 12 hours, eat small amounts of soft foods, such as cooked cereal, rice, eggs, custard, baked potato and yogurt. -If soft food is tolerated for 2 - 3 days, gradually return to a normal diet. Avoid alcohol, spicy food (pizza, spaghetti, onions), gravy raw vegetables, raw fruit, salad dressing, cream soup, coffeeand milk for several days. NOTIFY OFFICE: -Symptoms of gastroenteritis persist longer than 2 days. -The following occur during treatment: Mucus or blood in the stool. Fever of 101 degrees F (38.3 degrees C) or higher. Abdominal swelling. Severe pain in the abdomen or rectum especially pain that begins in the center and moves to the lower right side. -Vomiting and diarrhea recur after treatment. -Signs of dehydration, such as dry mouth, wrinkled skin, excess thirst or decreased urination, develop. documented in this encounterLouis Stokes Cleveland [facility] Center02-27-2023 NoteHNO ID: [id number] Author: Esther Jordan MD Service: ? Author Type: Physician Type: Progress Notes Filed: 06/13/2022 4:17 PM Note Text: June 13, 2022 Victorina Blevins is a 22 year old White female who presents to the office today for follow up on heavy bleeding on the OCP. He mother is on speaker phone. She began bleeding Jun 12, soaking a pad up to every 3 hours Passing clots She was not due for her menses until next week. She is finishing her last Enskyce May have missed one pill Rx menses with 9 weeks of active pills and placebo pill every 3 months Per her mother, she only did it once-the bleeding She states for the past year, she has been taking the full 4 weeks of the pill pack. Her cycles have been getting worse. She takes the placebo week of her pill pack first. She takes the first day of her pill pack on Monday. Urine test is negative-patient informed. No new partners for intercourse. She states she had a CT scan done at [place] that showed a fibroid uterus Reviewed US-no fibroids (Jun 02, 2022) BP 110/70 Wt 198 lb (89.8 kg) LMP 06/13/2022 (Approximate) BMI 35.07 kg/m? General appearance: healthy, alert, cooperative, pleasant, in no acute distress, well dressed, well groomed Skin: warm and dry, no gross lesions Neuro: Alert and appropriate, no involuntary movements ASSESSMENT/PLAN: 1. Vagina bleeding - ICD9: 623.8, ICD10: N93.9 Norethindrone 5 mg bid x 6 days call if bleeding does not decrease in 48 hours Begin OCP on Monday - HCG QUAL UR B/O Follow up in 6 weeks after next menses Referral for medical management of her obesity Encouraged to establish care with a primary care physician Esther Jordan [facility]02-27-2023 Instructions* Patient Instructions* Esther Jordan MD - 06/13/2022 3:44 PM EST To schedule an appointment for medical management of your weight: Dr Aravind Diamond MD, PhD documented in this encounterLouis Stokes Cleveland [facility] Center02-27-2023 History of Present illness Narrative* Esther Jordan MD - 06/13/2022 3:26 PM EST June 13, 2022 Victorina Blevins is a 22 year old White female who presents to the office today for follow up on heavy bleeding on the OCP. He mother is on speaker phone. She began bleeding Jun 12, soaking a pad up to every 3 hours Passing clots She was not due for her menses until next week. She is finishing her last Enskyce May have missed one pill Rx menses with 9 weeks of active pills and placebo pill every 3 months Per her mother, she only did it once-the bleeding She states for the past year, she has been taking the full 4 weeks of the pill pack. Her cycles have been getting worse. She takes the placebo week of her pill pack first. She takes the first day of her pill pack on Monday. Urine test is negative-patient informed. No new partners for intercourse. She states she had a CT scan done at [place] that showed a fibroid uterus Reviewed US-no fibroids (Jun 02, 2022) BP 110/70 Wt 198 lb (89.8 kg) LMP 06/13/2022 (Approximate) BMI 35.07 kg/m General appearance: healthy, alert, cooperative, pleasant, in no acute distress, well dressed, wellgroomed Skin: warm and dry, no gross lesions Neuro: Alert and appropriate, no involuntary movements ASSESSMENT/PLAN: 1. Vagina bleeding - ICD9: 623.8, ICD10: N93.9 Norethindrone 5 mg bid x 6 days call if bleeding does not decrease in 48 hours Begin OCP on Monday - HCG QUAL UR B/O Follow up in 6 weeks after next menses Referral for medical management of her obesity Encouraged to establish care with a primary care physician Esther Jordan MD documented in this encounterLouis Stokes Cleveland [facility]02-27-2023 Miscellaneous Notes* Telephone Encounter - Shahana Ascencio RN - 06/13/2022 8:42 AM EST Pt called in with c/o vaginal bleeding. She started her period a week early Monday evening with strong cramping. On Monday she was going through 1-2 tampons an hour and cramping was so bad she was also experiencing pain going up to her chest. She considered going to the Ed but wasn't sure what they would do forher. Today she is till bleeding and changing tampon q 1-2 hours with sever cramping. Bleeding is bright red and she has passed a few clots, quarter size and smaller. Pt is currently on ocp's. Reviewed with Dr. Jordan, pt offered an appt today and she accepts afternoon appt. Shahana Ascencio RN documented in this encounterLouis Stokes Cleveland Va [facility] Center02-17-2023 NoteHNO ID: [id number] Author: Juan José Marroquin MD Service: ? Author Type: Physician Type: Progress Notes Filed: 06/02/2022 10:02 PM Note Text: SALINE ULTRASOUND WAS NOT PERFORMED TODAY. ENDOMETRIUM THIN AND WELL VISUALIZED. Please see imaging tab for review. Ultrasound results were briefly discussed with the patient and she was recommended to follow up with her patient financial services specialist for management. Juan José Marroquin [facility]02-16-2023 History of Present illness Narrative* Juan José Marroquin MD - 06/02/2022 10:01 PM EST SALINE ULTRASOUND WAS NOT PERFORMED TODAY. ENDOMETRIUM THIN AND WELL VISUALIZED. Please see imaging tab for review. Ultrasound results were briefly discussed with the patient and she was recommended to follow up with her patient financial services specialist for management. Juan José Marroquin MD documented in this encounterLouis Stokes Cleveland [facility] Center02-03-2023 NoteHNO ID: [id number] Author: Esther Jordan MD Service: ? Author Type: Physician Type: Progress Notes Filed: 05/20/2022 5:50 PM Note Text: May 20, 2022 4:02 PM Victorina attempted to connect by video and connection would not work. I called Victorina, she stated she is in a safe location. She was given an alternative OCP and is concerned about it being an appropriate generic. I called the pharmacy and they stated she was given isibloom which is a generic for her enskyce. (Desogestrel/estradiol). We reviewed that with generic medication she should have a clinically similar response. She will finish her current package of the Enskyce and then frame changer to the isibloom. She has her US scheduled Jun 02 and will get her blood drawn on the same day. She does not have BTB on the OCP She has taken OCP in the past with prolonged intervals with menses and began having BTB no improvement in menstrual cycle (she did that in HS) She is sexually active. No new partner. Previously had a Liletta, and had it removed due to pain. It was in for 8-10 months. ASSESSMENT/PLAN: 1. Dysmenorrhea - ICD9: 625.3, ICD10: N94.6 She will get her ultrasound and labs done as scheduled She will take her current control pill with prolonged interval for her menstrual cycles She will follow-up to discuss her ultrasound results and labs and discuss a plan for long-term management Esther Joradn [facility]02-03-2023 History of Present illness Narrative* Esther Jordan MD - 05/20/2022 3:45 PM EST May 20, 2022 4:02 PM Victorina attempted to connect by video and connection would not work. I called Victorina, she stated she is in a safe location. She was given an alternative OCP and is concerned about it being an appropriate generic. I called the pharmacy and they stated she was given isibloom which is a generic for her enskyce. (Desogestrel/estradiol). We reviewed that with generic medication she should have a clinically similar response. She will finish her current package of the Enskyce and then frame changer to the isibloom. She has her US scheduled Jun 02 and will get her blood drawn on the same day. She does not have BTB on the OCP She has taken OCP in the past with prolonged intervals with menses and began having BTB no improvement in menstrual cycle (she did that in HS) She is sexually active. No new partner. Previously had a Liletta, and had it removed due to pain. It was in for 8-10 months. ASSESSMENT/PLAN: 1. Dysmenorrhea - ICD9: 625.3, ICD10: N94.6 She will get her ultrasound and labs done as scheduled She will take her current control pill with prolonged interval for her menstrual cycles She will follow-up to discuss her ultrasound results and labs and discuss a plan for long-term management Esther Jordan MD documented in this encounterLouis Stokes Cleveland [facility] Center01-10-2023 NoteHNO ID: [id number] Author: Esther Jordan MD Service: ? Author Type: Physician Type: Progress Notes Filed: 04/29/2022 8:42 AM Note Text: April 26, 2022 Victorina Blevins is a 21 year old White female who presents to the office today for: She has a history of heavy menstrual cycles, continues to have heavy menses, has been on OCP with prolonged cycle length (every 10 weeks) bleeds heavy on menses She states she has known fibroids She is currently on OCP-she has been on her current OCP for approximately one year She has been with with her partner for one year Component Latest Ref Rng AND Units 01/29/2022 GC Amplification Negative for Neisseria gonorrhoeae by amplification Negative for Neisseria gonorrhoeae by amplification Chlamydia Amplification Negative for Chlamydia trachomatis by amplificaton Negative for Chlamydia trachomatis by amplification Bacterial vaginosis Negative for bacterial vaginosis Negative for bacterial vaginosis Component Latest Ref Rng AND Units 01/29/2022 Margi species group RNA Negative for Margi species Negative for Margi species BP 126/80 (BP Site: Left Arm, BP Position: Sitting, BP Cuff Size: Regular Adult) Wt 197 lb (89.4 kg) LMP 04/18/2022 (Approximate) BMI 34.90 kg/m? General appearance: healthy, alert, cooperative, pleasant, in no acute distress, well dressed, well groomed Skin: warm and dry, no gross lesions Neuro: Alert and appropriate, no involuntary movements EGBUS: Normal female anatomy without any lesions Vagina: yellow vaginal discharge Cervix: no lesions, no discharge Uterus: small, mobile, no CMT Adnexa: Nontender, no masses ASSESSMENT/PLAN: 1. Screening for thyroid disorder - ICD9: V77.0, ICD10: Z13.29 - TSH BLD - THYROID PEROXIDASE ANTIBODY BLOOD 2. Excessive bleeding in premenopausal period - ICD9: 627.0, ICD10: N92.4 - VON WILLEBRAND DX PANEL - SONOHYSTEROGRAPHY (SIS) US I Discussed options for management, will assess proximity of fibroids to endometrial canal 3. Encounter for screening for diabetes mellitus - ICD9: V77.1, ICD10: Z13.1 - HGB A1C 4. Screening for cervical cancer - ICD9: V76.2, ICD10: Z12.4 - PAP FLUID CERVICAL SCREENING Continue OCP at this time Follow up in 6 weeks for virtual visit Esther Jordan MD Medical Decision Making: Problems: Moderate: 1+ chronic illnesses with change Data: Unique test result(s) reviewed: 3+ Risk: Moderate: Drug management Medical Decision Making Level: [facility] Inst[facility]* Patient Instructions* Esther Jordan MD - 04/26/2022 3:01 PM EST Please call and schedule your pelvic ultrasound: [facility] Ultrasound Scheduling documented in this encounterLouis Stokes Cleveland [facility] Center01-10-2023 History of Present illness Narrative* Esther Jordan MD - 04/26/2022 2:38 PM EST April 26, 2022 Victorina Blevins is a 21 year old White female who presents to the office today for: She has a history of heavy menstrual cycles, continues to have heavy menses, has been on OCP with prolonged cycle length (every 10 weeks) bleeds heavy on menses She states she has known fibroids She is currently on OCP-she has been on her current OCP for approximately one year She has been with with her partner for one year Component Latest Ref Rng & Units 01/29/2022 GC Amplification Negative for Neisseria gonorrhoeae by amplification Negative for Neisseria gonorrhoeae by amplification Chlamydia Amplification Negative for Chlamydia trachomatis by amplificaton Negative for Chlamydia trachomatis by amplification Bacterial vaginosis Negative for bacterial vaginosis Negative for bacterial vaginosis Component Latest Ref Rng & Units 01/29/2022 Margi species group RNA Negative for Margi species Negative for Margi species BP 126/80 (BP Site: Left Arm, BP Position: Sitting, BP Cuff Size: Regular Adult) Wt 197 lb (89.4 kg) LMP 04/18/2022 (Approximate) BMI 34.90 kg/m General appearance: healthy, alert, cooperative, pleasant, in no acute distress, well dressed, wellgroomed Skin: warm and dry, no gross lesions Neuro: Alert and appropriate, no involuntary movements EGBUS: Normal female anatomy without any lesions Vagina: yellow vaginal discharge Cervix: no lesions, no discharge Uterus: small, mobile, no CMT Adnexa: Nontender, no masses ASSESSMENT/PLAN: 1. Screening for thyroid disorder - ICD9: V77.0, ICD10: Z13.29 - TSH BLD - THYROID PEROXIDASE ANTIBODY BLOOD 2. Excessive bleeding in premenopausal period - ICD9: 627.0, ICD10: N92.4 - VON WILLEBRAND DX PANEL - SONOHYSTEROGRAPHY (SIS) US WHI Discussed options for management, will assess proximity of fibroids to endometrial canal 3. Encounter for screening for diabetes mellitus - ICD9: V77.1, ICD10: Z13.1 - HGB A1C 4. Screening for cervical cancer - ICD9: V76.2, ICD10: Z12.4 - PAP FLUID CERVICAL SCREENING Continue OCP at this time Follow up in 6 weeks for virtual visit Esther Jordan MD Medical Decision Making: Problems: Moderate: 1+ chronic illnesses with change Data: Unique test result(s) reviewed: 3+ Risk: Moderate: Drug management Medical Decision Making Level: 4 - Moderate documented in this encounterLouis [facility] Nurse Note* Raven Brito LPN - 04/26/2022 2:25 PM EST Motor Inspection Mechanic offered: Patient declines. documented in this encounterLouis Stokes [facility]01-04-2023 NoteHNO ID: [id number] Author: Felipe De La Rosa PA-C Service: ? Author Type: Physician Lock Operator Type: Progress Notes Filed: 04/20/2022 2:28 PM Note Text: [facility] PATIENT NAME: Victorina Blevins PRIMARY CARE PHYSICIAN: No primary care provider on file. 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 Can't usually sit. Has history of DUB and couldn't get into the OBGYN. Lately periods have been heavy. Has history of fibroids. Wants to have children eventually. Does have unprotected sex but had recent negative test and is bleeding. Pain in the lower abdomen radiating to the back. Heating pads seem to help after awhile. . Occasionally more painful on the left or the right. Has been on this control for a year and helped but not recently the last 3-4 months. No past medical history on file. PAST SURGICAL HISTORY Procedure Laterality Date ORTHOPEDICS SURGERY HX No family history on file. Social History Tobacco Use Smoking status: Never Smokeless tobacco: Never Vaping Use Vaping Use: Never used Substance Use Topics Alcohol use: No Drug use: No Current Outpatient Medications Medication Sig ASHLYNA 0.15 mg-30 mcg (84)/10 mcg (7) Take 1 tablet by mouth once daily. ondansetron orally disintegrating (ZOFRAN ODT) 4 mg disintegrating tablet Take 1 tablet by mouth three times daily as needed for nausea/vomiting. No current facility-administered medications for this visit. Review of patient's allergies indicates: ALLERGIES Allergen Reactions Suprax [Cefixime] Rash OBJECTIVE: 04/20/22 1258 BP: 127/87 Pulse: 91 Resp: 16 Temp: 37.1 ?C (98.8 ?F) TempSrc: Temporal Artery SpO2: 97% GENERAL: alert and appropriate, in no distress and well-hydrated, well nourished RESPIRATORY: breathing non-labored CHEST: equal chest rise with normal respiratory effort ABDOMEN: SOFT, NONTENDER, NONDISTENDED BACK: no CVA tenderness ASSESSMENT/PLAN: 1. DUB (dysfunctional uterine bleeding) - ICD9: 626.8, ICD10: N93.8 - CONSULT TO STOCK OR DELIVERY CLERK. Go up to the 2nd floor. They want you in with a doctor specifically but can tell them it could be a PA or ORACLE ETL DEVELOPER if able. Consideration of further treatment for the fibroids/bleeding If dizzy/lightheaded, can get bloodwdork for further evaluation here: - CBC + DIFF - PROTHROMBIN TIME/PT - ACTIVATED PTT - ZOFRAN as needed for nausea R[facility]NA [facility]01-04-2023 Instructions* Patient Instructions* Felipe De La Rosa PA-C - 04/20/2022 1:33 PM EST ASSESSMENT/PLAN: 1. DUB (dysfunctional uterine bleeding) - ICD9: 626.8, ICD10: N93.8 - CONSULT TO STOCK OR DELIVERY CLERK. Go up to the 2nd floor. They want you in with a doctor specifically but can tell them it could be a PA or ORACLE ETL DEVELOPER if able. Consideration of further treatment for the fibroids/bleeding If dizzy/lightheaded, can get bloodwdork for further evaluation here: - CBC + DIFF - PROTHROMBIN TIME/PT - ACTIVATED PTT - ZOFRAN as needed for nausea Felipe De La Rosa PA-C documented in this encounterLouis Stokes [facility]01-04-2023 History of Present illness Narrative* Felipe De La Rosa PA-C - 04/20/2022 1:09 PM EST [facility] PATIENT NAME: Victorina Blevins PRIMARY CARE PHYSICIAN: No primary care provider on file. 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 Can't usually sit. Has history of DUB and couldn't get into the OBGYN. Lately periods have been heavy. Has history of fibroids. Wants to have children eventually. Does have unprotected sex but had recent negative test and is bleeding. Pain in the lower abdomen radiating to the back. Heating pads seem to help after awhile. . Occasionally more painful on the left or the right. Has been on this control for a year and helped but not recently the last 3-4 months. No past medical history on file. PAST SURGICAL HISTORY Procedure Laterality Date ORTHOPEDICS SURGERY HX No family history on file. Social History Tobacco Use Smoking status: Never Smokeless tobacco: Never Vaping Use Vaping Use: Never used Substance Use Topics Alcohol use: No Drug use: No Current Outpatient Medications Medication Sig ASHLYNA 0.15 mg-30 mcg (84)/10 mcg (7) Take 1 tablet by mouth once daily. ondansetron orally disintegrating (ZOFRAN ODT) 4 mg disintegrating tablet Take 1 tablet by mouth three times daily as needed for nausea/vomiting. No current facility-administered medications for this visit. Review of patient's allergies indicates: ALLERGIES Allergen Reactions Suprax [Cefixime] Rash OBJECTIVE: 04/20/22 1258 BP: 127/87 Pulse: 91 Resp: 16 Temp: 37.1 C (98.8 F) TempSrc: Temporal Artery SpO2: 97% GENERAL: alert and appropriate, in no distress and well-hydrated, well nourished RESPIRATORY: breathing non-labored CHEST: equal chest rise with normal respiratory effort ABDOMEN: SOFT, NONTENDER, NONDISTENDED BACK: no CVA tenderness ASSESSMENT/PLAN: 1. DUB (dysfunctional uterine bleeding) - ICD9: 626.8, ICD10: N93.8 - CONSULT TO STOCK OR DELIVERY CLERK. Go up to the 2nd floor. They want you in with a doctor specifically but can tell them it could be a PA or ORACLE ETL DEVELOPER if able. Consideration of further treatment for the fibroids/bleeding If dizzy/lightheaded, can get bloodwdork for further evaluation here: - CBC + DIFF - PROTHROMBIN TIME/PT - ACTIVATED PTT - ZOFRAN as needed for nausea Felipe De La Rosa PA-C documented in this encounterLouis Stokes [facility] Center12-20-2022 Influenza virus A and B RNA and SARS-CoV-2 (COVID-19) N gene panel SIGRID+probe (Resp)COVID 19 RESULT: SARS-CoV-2 (Agent of COVID-19) Not Detected by RT-PCR or equivalent method. femi [id number] [employer] (JACOB)_EUA This test was developed and its performance characteristics determined by [facility]'s [facility] [place]. This test has been authorized by FDA under an Emergency Use Authorization (EUA). This test has been validated in accordance with the FDA's Guidance Document Policy for DiagnosticsTesting in Laboratories Certified to Perform High Complexity Testing under CLIA prior to Emergency use Authorization for Coronavirus Disease 2019 during the Public Health Emergency issued on June 15, 2019. Test performed by [facility], [facility] [place], [facility] [place] [address]. INFLUENZA A PCR: Negative for Influenza A by RT-PCR INFLUENZA B PCR: Negative for Influenza B by RT-PCRMarietta Memorial HospitalComment on above: Performed By: #### [id number] ####[facility] LABCLIA [id number] [address] [place] [id number] [place] 04-05-2022 NoteHNO ID: [id number] Author: Vasyl Oakley PA-C Service: ? Author Type: Physician Lock Operator Type: Progress Notes Filed: 04/05/2022 4:54 PM Note Text: BP 116/84 (BP Site: Right Arm, BP Position: Sitting, BP Cuff Size: Large Adult) Pulse 89 Temp 36.4 ?C (97.6 ?F) LMP 03/22/2022 (Approximate) SpO2 98% HISTORY OF PRESENT ILLNESS CC: Victorina is a 21 year old female who presents to the office today for evaluation of her symptoms of discomfort when breathing body aches nausea no started last night at dinner. Continued through today. She feels better when lying flat and breathing. She denies shortness of breath. She is on control pills. LMP was 2 weeks ago. Feels lightheaded as well. PAST HISTORIES No past medical history on file. PAST SURGICAL HISTORY Procedure Laterality Date ORTHOPEDICS SURGERY HX No family history on file. Social History Tobacco Use Smoking status: Never Smokeless tobacco: Never Vaping Use Vaping Use: Never used Substance Use Topics Alcohol use: No Drug use: No REVIEW OF SYSTEMS Constitutional - Negative, unless otherwise indicated in HPI Eyes - Negative, unless otherwise indicated in HPI ENT - Negative, unless otherwise indicated in HPI Cardiovascular - Negative, unless otherwise indicated in HPI Respiratory - Negative, unless otherwise indicated in HPI Gastrointestinal - Negative, unless otherwise indicated in HPI Genitourinary - Negative, unless otherwise indicated in HPI Musculoskeletal - Negative, unless otherwise indicated in HPI Integumentary - Negative, unless otherwise indicated in HPI Neurologic - Negative, unless otherwise indicated in HPI Psychiatric / Behavioral - Negative, unless otherwise indicated in HPI Endocrine - Negative, unless otherwise indicated in HPI Hematological / lymphatic - Negative, unless otherwise indicated in HPI Allergic / Immunologic - Negative, unless otherwise indicated in HPI PHYSICAL EXAM Physical Exam GENERAL - Patient is oriented to person, place, and time and well-developed, well-nourished, and in no distress. HEAD - Normocephalic and atraumatic. RIGHT EAR - External ear normal. LEFT EAR - External ear normal. Internal ears normal NOSE - Nose normal. MOUTH/THROAT - Face symmetric, airway patent, voice normal. Pharynx normal RIGHT EYE - Conjunctivae is normal. Pupil is round and reactive LEFT EYE - Conjunctivae is normal. Pupil is round and reactive NECK - Normal range of motion. Neck supple. Trachea midline. CARDIOVASCULAR -regular rate and rhythm PULMONARY - Effort normal and breath sounds normal. No distress, airway patent, symmetric rise and fall of the chest. ABDOMEN - No distention - Deferred MUSCULOSKELETAL - Normal range of motion. Normal gait. NEUROLOGICAL - Patient is alert and oriented to person, place, and time. Gait normal. SKIN - Warm and dry. No rash or lesions noted PSYCH - Mood, memory, affect and judgment normal. MEDICAL DECISION MAKING/ PROCEDURE/ RESULTS Overall I suspect patient has a flulike illness however she is on control and complains of pleuritic pain. Despite normal vital signs she is on control. I offered her to get labs stat and a chest x-ray and if her D-dimer is positive decided to the ER she will do this at [place]. Prescribe Zofran for nausea. IMPRESSION (R07.81) Pleuritic chest pain (primary encounter diagnosis) Plan: D-DIMER, CBC + DIFF, COMP METABOLIC PANEL, HCG QUANTITATIVE, XR CHEST 2V FRONTAL/LAT, COVID WITH FLUA+B, ROUTINE PLAN Thank you for this opportunity to address your concerns and participate in your healthcare. Home going recommendations for symptoms were provided during counseling and on after visit summary All patient's questions were answered at this visit. However, If questions do arise you may call this facility ask for the Express/ Urgent Care. Patient indicates understanding of discharge and medication instructions prior to discharge. Patient advised to return to contact their primary care physician if symptoms persist. Patient advised if symptoms suddenly worsen to call 911 or report to the emergency room. Patient discharged in stable condition. This note was dictated using [employer] speech recognition software and may contain some errors that were a result of the program not accurately transcribing what was dictated. RAYNA [facility]agoza[facility]10-15-2022 Instructions* Patient Instructions* Zayra Stroud MD - 01/29/2022 10:03 AM EDT Follow up with your district adviser. You will be treated appropriately once culture results become available. documented in this encounterLouis Stokes [facility]10-15-2022 History of Present illness Narrative* Zayra Stroud MD - 01/29/2022 9:49 AM EDT Assessment and Plan: (N89.8) Vaginal discharge (primary encounter diagnosis) Plan: MARGI / TRICHOMONAS AMPLIFICATION , BACTERIALVAGINOSIS AMPLIFICATION, GC/CHLAMYDIA DNA DET, HCG QUAL UR B/O Follow up with your district adviser. She'll be treated as appropriately after reviewing culture results Subjective: Patient presents with: Female Gu Problem: X1 week, discharge and at times w small amount of blood, cramping in lower abdomen intermitt. HPI: Victorina Blevins is a 21 year old female who comes in today with complaint of thin excessive vaginaldischarge x 1 week Intermittent lower abdomen cramping Last sexual encounter x 1 week back Nausea for a day - vomited the same day - unsure if OCP came out Has may taking OCP as prescribed - under care of district adviser Expecting menstrual period in next week No dysuria No STI concern - same partner for 1.5 yrs No h/o ovarian cyst / fibroid / polyp No abd surgery No n/ v / d No fever / chills PMH and medication reviewed in the chart. Nursing note reviewed and agree. ALLERGIES Allergen Reactions Suprax [Cefixime] Rash Objective: BP 120/78 (BP Site: Left Arm, BP Position: Sitting, BP Cuff Size: Large Adult) Pulse 74 Temp 36.8 C (98.3 F) Resp 18 LMP 01/27/2017 General - alert , well hydrated Resp - clear lungs bilaterally, no wheezing, rales, rhonchi CVS - normal heart rate, regular rhythm Abdomen - soft, min tenderness on right pelvic area on bimanual exam, nondistended, no mass palpable. Normal bowel sounds, no CVA tenderness Extremities - no edema. Per pulse normal. Vulvar skin - normal labia majora and minora, no lesion Vagina - normal mucosa, min discharge, no lesion Cervix - normal external os, no erythema, bleeding or discharge Labs: urine HCG negative documented in this encounterLouis Stokes [facility] Center10-14-2022 Miscellaneous Notes* Telephone Encounter - Hilary Joya RN - 01/28/2022 8:17 PM EDT Patient calling with vaginal discharge. Patient denies any new or worsening symptoms of which a provider is not aware:Yes. Reason for call: Intermittent abdominal cramps - with clear vaginal discharge. Outcome: Recommendation to see PCP within 24 hours; Patient verbally agrees and understands the recommendations Patient will go to [facility] tomorrow Reason for Disposition [1] Mild lower abdominal pain comes and goes (cramps) AND [2] lasts > 24 hours Answer Assessment - Initial Assessment Questions 1. DISCHARGE: Normally clear discharge. A few days ago did have one episode of clear/sticky/some bloody discharge. 2. ODOR: Denies any odor. 3. ONSET: Early this week (about five days ago) 4. RASH: Denies any rashes. 5. ABDOMINAL PAIN: Intermittent cramping lower abdominal pain x 3-4 days. 6. ABDOMINAL PAIN SEVERITY: Mild to moderate; depends on the episode. Intermittent cramping. 7. CAUSE: Patient is unsure. 8. OTHER SYMPTOMS: Denies fever, denies vaginal itching, bleeding, painful urination, injury to genital area, or foreign body. 9. : Has not had intercourse in two weeks, unprotected sex. Has not taken a test. Protocols used: Vaginal [id number] documented in this encounterLouis Stokes [facility] Center08-12-2021 Hospital Discharge instructions* Instructions* Sean Redmond MD - 11/26/2020 You have been seen in the Emergency Department for getting bitten by a cat. X- ray shows no foreign body anywhere in your hand, however your hand is vulnerable to infection so I have prescribed you anantibiotic called Augmentin. Please take it all, even if you feel better. Wash the wound gently with warm soap and water. After a visit to the Emergency Department, follow-up is important. You should follow-up with your primary care physician next week to ensure you are feeling better. You will need repeat rabies vaccines on November 29, December 03 and December 10. You may return to this emergency department or any ED in the area to get this done. Return to the ED if you develop spreading redness or cellulitis moving along your thumb or right hand, decreased range of motion of your right thumb, fevers or chills, severe headaches or blurry vision, strange aversion to water or light, confusion or seizures, or if any new signs, symptoms, or concerns arise. * Attachments The following attachments cannot be sent through Care Everywhere. * Bites: Animal (Canadian) * rabies immune globulin (human) ([place]) [facility]OH[facility] Work Phone: Evaluation note* Diagnosis Cat bite, initial encounter- Primary [facility] Work Phone: Evaluation note* Diagnosis Vaginal discharge- Primary Leukorrhea, not specified as infective documented in this encounter [facility]* Diagnosis DUB (dysfunctional uterine bleeding)- Primary Other disorder of menstruation and other abnormal bleeding from female genital tract documented in this encounter [facility]* Diagnosis Excessive bleeding in premenopausal period- Primary Premenopausal menorrhagia Screening for thyroid disorder Encounter for screening for diabetes mellitus Screening for diabetes mellitus Screening for cervical cancer Screening for malignant neoplasm of the cervix documented in this encounter [facility]* Diagnosis Dysmenorrhea- Primary [facility] Diagnosis Excessive bleeding in premenopausal period- Primary Premenopausal menorrhagia Encounter for preprocedural laboratory examination Pre-procedural laboratory examination documented in this encounter [facility]* Diagnosis Vagina bleeding- Primary Other specified noninflammatory disorder of vagina documented in this encounter [facility]* Diagnosis Gastroenteritis- Primary Other and unspecified noninfectious gastroenteritis and colitis documented in this encounter [facility]* Diagnosis Abdominal pain, unspecified abdominal location- Primary Dizziness Dizziness and giddiness Nausea Nausea alone Visual disturbance Unspecified visual disturbance Myalgia Mylagia and myositis, unspecified Fatigue, unspecified type documented in this encounter [facility] noteNo assessment information availableCoSamaritan [facility] Work Phone: Evaluation note* Diagnosis Abnormal uterine bleeding (AUB)- Primary Galactorrhea Galactorrhea not associated with childbirth Dysmenorrhea documented in this encounter [facility] note* Diagnosis Abnormal uterine bleeding (AUB)- Primary documented in this encounter [facility] note* Diagnosis Dysmenorrhea- Primary Abnormal uterine bleeding (AUB) documented in this encounter [facility] note* Diagnosis Abnormal uterine bleeding (AUB) documented in this encounter [facility] note* Diagnosis Sore throat- Primary Acute pharyngitis URI, acute Acute upper respiratory infections of unspecified site Acute cough documented in this encounter [facility] note* Diagnosis Abnormal uterine bleeding (AUB)- Primary documented in this encounter [facility] note* Diagnosis Abnormal uterine bleeding (AUB) documented in this encounter [facility] note* Diagnosis Encounter for test, result unknown- Primary documented in this encounter [facility] for referral (narrative)* Diagnostic Procedure Only (Routine) - Pending Review Specialty Diagnoses / Procedures Referred By Contallan t Referred To Contact [facility] Diagnoses Excessive bleeding in premenopausal period Procedures SONOHYSTEROGRAPHY (SIS) US WHI SALINE INFUS SONOHYSTEROGRAPHY W/[place] [address] [place] [address] [place] [id number] Referral ID Status Reason Start Date Expiration Date Visits Requested Visits Authorized [id number] Pending Review Auto-Generat ed Referral 04/26/2022 04/26/2023 1 1 [facility] for referral (narrative)* Diagnostic Procedure Only (Routine) - Authorized Specialty Diagnoses / Procedures Referred By Contac t Referred To Contact [facility] Diagnoses Abnormal uterine bleeding (AUB) Procedures PELVIC US WHI US PELVIC NONOBSTETRIC REAL[place] [address] [place] [address] [facility] [address] [place] [address] Referral ID Status Reason Start Date Expiration Date Visits Requested Visits Authorized [id number] Authorized Auto-Generat ed Referral 11/29/2022 11/29/2023 1 1 [facility] Narrative* Diagnostic Procedure Only (Routine) - Closed Specialty Diagnoses / Procedures Referred By Contac t Referred To Contact [facility] Diagnoses Abnormal uterine bleeding (AUB) Procedures PELVIC US WHI US PELVIC NONOBSTETRIC REAL-[place] [address] [place] [address] [place] [id number] [place] [address] Referral ID Status Reason Start Date Expiration Date V isits Requested Visits Authorized [id number] Closed Auto-Generate d Referral 11/29/2022 11/29/2023 1 1 [facility] Summary Purpose Family History No Family History Records FoundNo Family History Records FoundNo Family History Records FoundNo Family History Records FoundNo Family History Records FoundNo Family History Records FoundNo Family History Records FoundNo Family History Records FoundNo Family History Records Found Advance Directives No Advanced Directives Records FoundNo Advanced Directives Records FoundNo Advanced Directives Records FoundNo Advanced Directives Records FoundNo Advanced Directives Records FoundNo Advanced Directives Records FoundNo Advanced Directives Records FoundNo Advanced Directives Records FoundNo Advanced Directives Records Found Reason for Referral Specialty Diagnoses / Procedures Referred By Contac t Referred To Contact Diagnoses DUB (dysfunctional uterine bleeding) Procedures CONSULT TO STOCK OR DELIVERY CLERK OFFICE/OUTPATIENT [facility] [id number] MINUTES Felipe De La Rosa PA-C [address] [place] [address] Referral ID Status Reason Start Date Expiration Date Visits Requested Visits Authorized [id number] Authorized PCP Requested Referral Auto-Generate d Referral 04/20/2022 04/20/2023 1 1 Chief Complaint and Reason for Visit Chief Complaint RT ARM PAIN Additional Source Comments INFORMATION SOURCE (unrecogn ized section and content) DATE CREATED AUTHOR AUTHOR'S ORGANIZ ATION 01/01/2020 [facility] DATE CREATED AUTHOR AUTHOR'S ORGANIZ ATION 05/08/2020 [facility] DATE CREATED AUTHOR AUTHOR'S ORGANIZ ATION 12/10/2020 [facility] DATE CREATED AUTHOR AUTHOR'S ORGANIZ ATION 09/26/2022 [facility] DATE CREATED AUTHOR AUTHOR'S ORGANIZ ATION 09/26/2022 [facility] DATE CREATED AUTHOR AUTHOR'S ORGANIZ ATION 10/15/2022 [facility] DATE CREATED AUTHOR AUTHOR'S ORGANIZ ATION 12/16/2022 [facility] DATE CREATED AUTHOR AUTHOR'S ORGANIZ ATION 03/20/2023 [facility] Reason for Visit (unrecogniz ed section and content) Reason Comments Vaginal Discharge Reason Comments Female Gu Problem X1 week, discharge a nd at times w small amount of blood, cramping in lower abdomen intermitt. Reason Comments Menstrual Problem Period is very heavy - started last night - getting worse Reason Comments Menstrual Problem Patient states seen in [facility] care 04-20-22 for heavy bleeding- she changed 8 super tampons in 5 hours.Patient states has known fibroids. Currently on BCP to help heavy periods, severe cramping Reason Comments Menstrual Problem Reason Comments sis Specialty Diagnoses / Procedures Referred By Jeni gordon Referred To Contact [facility] Diagnoses Excessive bleeding in premenopausal period Procedures SONOHYSTEROGRAPHY (SIS) US WHI SALINE INFUS SONOHYSTEROGRAPHY W/[place] [address] [place] [address] [address] Referral ID Status Reason Start Date Expiration Date V isits Requested Visits Authorized [id number] Closed Auto-Generate d Referral 04/26/2022 04/26/2023 1 1 Reason Comments Vaginal Bleeding Reason Comments Vaginal Bleeding 7 tampons today Reason Comments vomiting, cough, h/a Reason Comments Patient Question Reason Comments Abdominal Pain Epigastric pain with nausea x 3 days Reason Comments Patient Update Reason Comments Appointment Reason Comments Medication Problem Reason Comments Patient Update Continual bleeding Reason Comments Patient Update Still bleeding / pt concerned Reason Comments Vaginal Problem See telephone encoun ter from today.Patient states period started 7 days ago. Usually last 5-7 days, but light at the end. The bleeding is increasing with this period. Passing 25 cent size clots at the beginning, occasional dime size clots now. Having abdomen cramping..Patient states she just started a brand new bcp on Monday.Not sure but may have a retained tampon Reason Comments Patient Update Still bleeding, migr aines, fatigue Reason Comments Sore Throat Cough Reason Comments Refill Request Reason Comments Patient Question Should she keep her upcoming appt Reason Comments Med Change Request Reason Comments Results Ordered Prescriptions (unrec ognized section and content) Scheduled Active and Recently Administ ered Medications (unrecognized section and content) Source Comments (unrecognize d section and content) In the event this informatio n is protected by the Federal Confidentiality of Alcohol and Drug Abuse Patient Records regulations: The Federal rules restrict any use of the information to criminally investigate or prosecute any alcohol or drug abuse patient.[facility] the event this information is protected by the Federal Confidentiality of Alcohol and Drug Abuse Patient Records regulations: The Federal rules restrict any use of the information to criminally investigate or prosecute any alcohol or drug abuse patient.[facility] Center[facility] the event this information is protected by the Federal Confidentiality of Alcohol and Drug Abuse Patient Records regulations: The Federal rules restrict any use of the information to criminally investigate or prosecute any alcohol or drug abuse patient.[facility] Center[facility] the event this information is protected by the Federal Confidentiality of Alcohol and Drug Abuse Patient Records regulations: The Federal rules restrict any use of the information to criminally investigate or prosecute any alcohol or drug abuse patient.[facility] CenterIn the event this information is protected by the Federal Confidentiality of Alcohol and Drug Abuse Patient Records regulations: The Federal rules restrict any use of the information to criminally investigate or prosecute any alcohol or drug abuse patient.[facility] Center[facility] the event this information is protected by the Federal Confidentiality of Alcohol and Drug Abuse Patient Records regulations: The Federal rules restrict any use of the information to criminally investigate or prosecute any alcohol or drug abuse patient.[facility] CenterIn the event this information is protected by the Federal Confidentiality of Alcohol and Drug Abuse Patient Records regulations: The Federal rules restrict any use of the information to criminally investigate or prosecute any alcohol or drug abuse patient.[facility] CenterIn the event this information is protected by the Federal Confidentiality of Alcohol and Drug Abuse Patient Records regulations: The Federal rules restrict any use of the information to criminally investigate or prosecute any alcohol or drug abuse patient.[facility] CenterIn the event this information is protected by the Federal Confidentiality of Alcohol and Drug Abuse Patient Records regulations: The Federal rules restrict any use of the information to criminally investigate or prosecute any alcohol or drug abuse patient.[facility] Center[facility] the event this information is protected by the Federal Confidentiality of Alcohol and Drug Abuse Patient Records regulations: The Federal rules restrict any use of the information to criminally investigate or prosecute any alcohol or drug abuse patient.[facility] CenterIn the event this information is protected by the Federal Confidentiality of Alcohol and Drug Abuse Patient Records regulations: The Federal rules restrict any use of the information to criminally investigate or prosecute any alcohol or drug abuse patient.[facility] CenterIn the event this information is protected by the Federal Confidentiality of Alcohol and Drug Abuse Patient Records regulations: The Federal rules restrict any use of the information to criminally investigate or prosecute any alcohol or drug abuse patient.[facility] CenterIn the event this information is protected by the Federal Confidentiality of Alcohol and Drug Abuse Patient Records regulations: The Federal rules restrict any use of the information to criminally investigate or prosecute any alcohol or drug abuse patient.[facility] CenterIn the event this information is protected by the Federal Confidentiality of Alcohol and Drug Abuse Patient Records regulations: The Federal rules restrict any use of the information to criminally investigate or prosecute any alcohol or drug abuse patient.[facility] CenterIn the event this information is protected by the Federal Confidentiality of Alcohol and Drug Abuse Patient Records regulations: The Federal rules restrict any use of the information to criminally investigate or prosecute any alcohol or drug abuse patient.[facility] the event this information is protected by the Federal Confidentiality of Alcohol and Drug Abuse Patient Records regulations: The Federal rules restrict any use of the information to criminally investigate or prosecute any alcohol or drug abuse patient.[facility] CenterIn the event this information is protected by the Federal Confidentiality of Alcohol and Drug Abuse Patient Records regulations: The Federal rules restrict any use of the information to criminally investigate or prosecute any alcohol or drug abuse patient.[facility] CenterIn the event this information is protected by the Federal Confidentiality of Alcohol and Drug Abuse Patient Records regulations: The Federal rules restrict any use of the information to criminally investigate or prosecute any alcohol or drug abuse patient.[facility] CenterIn the event this information is protected by the Federal Confidentiality of Alcohol and Drug Abuse Patient Records regulations: The Federal rules restrict any use of the information to criminally investigate or prosecute any alcohol or drug abuse patient.[facility] CenterIn the event this information is protected by the Federal Confidentiality of Alcohol and Drug Abuse Patient Records regulations: The Federal rules restrict any use of the information to criminally investigate or prosecute any alcohol or drug abuse patient.[facility] CenterIn the event this information is protected by the Federal Confidentiality of Alcohol and Drug Abuse Patient Records regulations: The Federal rules restrict any use of the information to criminally investigate or prosecute any alcohol or drug abuse patient.[facility] CenterIn the event this information is protected by the Federal Confidentiality of Alcohol and Drug Abuse Patient Records regulations: The Federal rules restrict any use of the information to criminally investigate or prosecute any alcohol or drug abuse patient.[facility] CenterIn the event this information is protected by the Federal Confidentiality of Alcohol and Drug Abuse Patient Records regulations: The Federal rules restrict any use of the information to criminally investigate or prosecute any alcohol or drug abuse patient.[facility] CenterIn the event this information is protected by the Federal Confidentiality of Alcohol and Drug Abuse Patient Records regulations: The Federal rules restrict any use of the information to criminally investigate or prosecute any alcohol or drug abuse patient.[facility] CenterIn the event this information is protected by the Federal Confidentiality of Alcohol and Drug Abuse Patient Records regulations: The Federal rules restrict any use of the information to criminally investigate or prosecute any alcohol or drug abuse patient.[facility] CenterIn the event this information is protected by the Federal Confidentiality of Alcohol and Drug Abuse Patient Records regulations: The Federal rules restrict any use of the information to criminally investigate or prosecute any alcohol or drug abuse patient.[facility] CenterIn the event this information is protected by the Federal Confidentiality of Alcohol and Drug Abuse Patient Records regulations: The Federal rules restrict any use of the information to criminally investigate or prosecute any alcohol or drug abuse patient.[facility] CenterIn the event this information is protected by the Federal Confidentiality of Alcohol and Drug Abuse Patient Records regulations: The Federal rules restrict any use of the information to criminally investigate or prosecute any alcohol or drug abuse patient.[facility] CenterIn the event this information is protected by the Federal Confidentiality of Alcohol and Drug Abuse Patient Records regulations: The Federal rules restrict any use of the information to criminally investigate or prosecute any alcohol or drug abuse patient.[facility] CenterIn the event this information is protected by the Federal Confidentiality of Alcohol and Drug Abuse Patient Records regulations: The Federal rules restrict any use of the information to criminally investigate or prosecute any alcohol or drug abuse patient.[facility] CenterIn the event this information is protected by the Federal Confidentiality of Alcohol and Drug Abuse Patient Records regulations: The Federal rules restrict any use of the information to criminally investigate or prosecute any alcohol or drug abuse patient.[facility] CenterIn the event this information is protected by the Federal Confidentiality of Alcohol and Drug Abuse Patient Records regulations: The Federal rules restrict any use of the information to criminally investigate or prosecute any alcohol or drug abuse patient.[facility] CenterIn the event this information is protected by the Federal Confidentiality of Alcohol and Drug Abuse Patient Records regulations: The Federal rules restrict any use of the information to criminally investigate or prosecute any alcohol or drug abuse patient.[facility] CenterIn the event this information is protected by the Federal Confidentiality of Alcohol and Drug Abuse Patient Records regulations: The Federal rules restrict any use of the information to criminally investigate or prosecute any alcohol or drug abuse patient.[facility] CenterIn the event this information is protected by the Federal Confidentiality of Alcohol and Drug Abuse Patient Records regulations: The Federal rules restrict any use of the information to criminally investigate or prosecute any alcohol or drug abuse patient.[facility] <item> Privacy Markings (unrecogniz ed section and content) Section Author: Skyla Villegas PROHIBITION ON REDISCLOSURE OF CONFIDENTIAL INFORMATION This notice accompanies a disclosure of information concerning a client made to you with the consent of such client. Care Teams (unrecognized sec tion and content) Goals (unrecognized section and content) Goals may be documented in a n alternate section FOR RECORDS PERTAINING TO PATIENTS WHO ARE OR HAVE BEEN ENROLLED IN A CHEMICAL DEPENDENCY/SUBSTANCEABUSE PROGRAM, SOME INFORMATION MAY BE OMITTED. This clinical summary was aggregated from multiple sources. Caution should be exercised in using it in the provision of clinical care. This summary normalizes information from multiple sources, and as a consequence, information in this document may materially change the coding, format and clinical context of patient data. In addition, data may be omitted in some cases. CLINICAL DECISIONS SHOULD BE BASED ON THE PRIMARY CLINICAL RECORDS. [facility] [employer] [facility]. provides no warranty or guarantee of the accuracy or completeness of information in this document.
[2023-04-26] MEDS: DiphenhydrAMINE 50 MG/ML Syringe 25 MG IV (16:38)
[2023-04-26] MEDS: Metoclopramide 10 MG/2 ML Vial IV (16:38)
[2023-04-26] MEDS: 0.9% Normal Saline (1000mL) 1,000 ML 999 ML IV (16:38)
--- NOTE | 2023-04-26 16:48 | CT_ITS ---
STUDY: CT BRAIN WITHOUT CONTRAST REASON FOR EXAM: Female, 22 years old. Pain RADIATION DOSAGE (If Supplied By Facility): CTDIvol = ( 44.99 ) mGy, DLP = ( 779.24 ) mGycm TECHNIQUE: Transaxial CT imaging of the brain was performed without administration of intravenous contrast material. Individualized dose optimization techniques were used for this CT. COMPARISON: No relevant priors. FINDINGS: Normal soft tissue structures. Normal calvarium. Normal size ventricles and extra-axial spaces for the patient''s age. Normal white matter tracts of the cerebral hemispheres. Normal basal ganglia and thalami. Normal brainstem. Normal cerebellum. There is no intracranial hemorrhage. There are no findings of an acute ischemic infarction. Normal visualized paranasal sinuses. CT/Brain/Head without Contrast IMPRESSION: Normal unenhanced CT scan of the brain. Electronically Signed: Anay Paniagua MD at 17:06 EST ,
[2023-04-26 17:46] VITALS: RESP 16
== END 2023-04-26 17:47 | disposition home or self-care (01) ==
PROVIDERS: Emergency Provider Emergency Medicine; PCP Family Medicine; Visit Provider Emergency Medicine
DX: S09.90XA Unspecified injury of head, initial encounter (principal); M54.2 Cervicalgia; W54.1XXA Struck by dog, initial encounter; R11.0 Nausea; E66.9 Obesity, unspecified; F43.10 Post-traumatic stress disorder, unspecified; Z79.899 Other long term (current) drug therapy
CPT/HCPCS: 70450; 96361; 96374; 96375; 99282; J7030; A4216